=== PATIENT | female | born 1955 | race Caucasian/White ===

== ENCOUNTER 2020-06-22 08:57 | Outpatient (CLI) | payer MEDICARE, MEDICAID ==
[2020-06-22] MEDS ORDERED: Iopamidol 370 76% 100 ML VIAL ONE (09:06)
--- NOTE | 2020-06-22 11:44 | CT ---
CTA ABDOMEN AND PELVIS AND LOWER EXTREMITIES FOLLOWING ANGIO RUNOFF PROTOCOL WITH MULTIPLANAR RECONST RUCTION AND 3D POSTPROCESSING: Date; 06/22/2020 INDICATION: Peripheral vascular disease. Claudication. FINDINGS: The abdominal aorta shows moderate atherosclerotic change. Peripheral calcification with mild periphe ral thrombus within the aorta. Mild ectasia of the lower abdominal aorta with diameter in the sagitta l plane measured at 1.8 cm. The calcified plaque does produce luminal narrowing in the lower abdomina l aorta with calcified plaque projecting into the lumen. Moderate stenosis at the origin of the celiac artery which does appear to be hemodynamically signific ant. No significant stenosis at the origin of the superior mesenteric artery. Calcified plaque at the origin of the right renal artery results in what appears to be hemodynamicall y significant stenosis in the 50% diameter range according to NASCET criteria. No significant left renal artery stenosis. The aortic bifurcation shows diffuse atherosclerotic change involving both common iliacs. There is oc clusion of the left common iliac at its origin. LEFT LOWER EXTREMITY: The left common iliac occlusion extends into the left external iliac which is occluded. There is reconstitution of the left common femoral. Some minimal flow is seen in the left internal il iac. The left profunda femoral is patent. There is mild stenosis at the origin of the left superficial femoral. Moderate stenosis at the proximal left superficial femoral artery appears significant, probably in th e 70% diameter range by NASCET criteria. Atherosclerotic changes throughout the left superficial femoral artery with other areas of stenosis t hroughout the thigh. Evidence of significant stenosis at Bernard's canal distally. Left popliteal shows moderate atherosclerotic change with mild to moderate stenosis. Popliteal trifurcates below the knee. Three vessels are identified to the left ankle. The peroneal ap pears to occlude right at the ankle. The anterior tibial and posterior tibial arteries are patent at the foot. RIGHT LOWER EXTREMITY: Right common iliac is patent with mild to moderate stenosis. The right internal and external iliacs are patent with moderate atherosclerotic change. Right common femoral is patent. Profunda femoral is patent. Mild to moderate disease throughout the right superficial femoral artery with areas of mild stenosis. The right popliteal shows moderate stenosis at the joint space. The right popliteal trifurcates below the knee joint. The peroneal appears to occlude above the ankle . Anterior tibial and posterior tibial arteries are patent at the ankle. SOFT TISSUES: Chronic appearing changes in the lung bases. Liver, spleen, and pancreas are unremarkable. Bilateral renal cystic lesions. No hydronephrosis. Both kidneys show symmetric enhancement. Bowel loops unremar kable. Diverticulosis of the sigmoid colon. Osseous structures unremarkable with degenerative spine changes. Vertebral bodies maintain height. IMPRESSION: 1. There is calcified plaque projecting into the lumen of the lower abdominal aorta producing lumina l stenosis. This should be evaluated with catheter angiogram to assess significance. 2. Significant stenosis at the origin of the celiac artery and probably significant stenosis at the origin of the right renal artery. 3. 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 Recon stitution of left common femoral artery as noted above. 4. Areas of stenosis throughout the left superficial femoral artery and left popliteal as described above. 5. Moderate disease in the right common femoral and right superficial femoral artery with areas of m ild to moderate stenosis. POS: AH
== END 2020-06-22 08:58 | disposition home or self-care (01) ==
LOC: CT 08:57
PROVIDERS: ATTEND Internal Medicine Cardiovascular Disease
DX: I73.9 Peripheral vascular disease, unspecified (principal); I70.0 Atherosclerosis of aorta; I77.4 Celiac artery compression syndrome; I70.203 Unspecified atherosclerosis of native arteries of extremities, bilateral legs; I74.5 Embolism and thrombosis of iliac artery
CPT/HCPCS: 75635; 82565; Q9967

== ENCOUNTER 2020-10-29 06:55 | Emergency (ER) | payer MEDICARE, MEDICAID ==
[2020-10-29 08:18] LABS: Hemoglobin 10.7 g/dL (12.0-16.0); Mean Corpuscular HGB CONC 31.8 g/dL (32.0-36.0); Mean Corpuscular Hemoglobin 23.3 pg (27.0-31.0); Mean Corpuscular Volume 73.2 fL (78.0-98.0); Mean Platelet Volume 10.6 fL (7.4-10.4); Platelet Count 235 thou/uL (130-400); RBC Distribution Width 18.5 % (11.5-14.5); Red Blood Cell (RBC) Count 4.58 mill/uL (4.20-5.40); White Blood Cell (WBC) Count 15.1 thou/uL (4.8-10.8)
[2020-10-29 08:19] LABS: Bacteria/HPF None Seen HPF (None Seen); Bilirubin Negative (Negative); Blood, Urine 1+ (Negative); Clarity Clear (Clear); Glucose, Urine (Dipstick) Normal (Negative); Ketone, Urine Negative (Negative); Leukocyte Negative Leu/uL (Negative); Nitrite Negative (Negative); Protein, Urine (Dipstick) Negative (Neg-Trace); Specific Gravity, Urine 1.004 (1.002-1.036); Squamous Epithelial 0-3 HPF (0-3); Urobilinogen Normal mg/dL (Less than 2); WBC/HPF 0-3 HPF (0-3)
[2020-10-29 08:26] LABS: #Basophils 0.1 thou/uL (0.0-0.2); #Eosinphils 0.1 thou/uL (0.0-0.7); #Lymphocytes 1.6 thou/uL (1.20-3.40); #Neutrophils 12.3 thou/uL (1.40-6.50); %Basophils 0.4 % (0.0-1.0); %Eosinophils 0.5 % (0.0-10.0); %Lymphocytes 10.8 % (21.0-51.0); %Monocytes 6.6 % (0.0-10.0); %Neutrophils 81.7 % (42.0-75.0); Anisocytosis SLIGHT = 6-15 cells (100X) (0-5/hpf); Hypochromia SLIGHT = 6-15 cells (100X) (0-5/hpf); MDiff Complete? YES; Microcytosis MODERATE=15-30 cells (100X) (0-5/hpf); Platelet Morphology Comment Appears Adequate; Polychromasia SLIGHT = 2-3 cells (100X) (0-2/hpf)
--- NOTE | 2020-10-29 08:28 | CT ---
CT Stone Protocol History: Abdominal pain Comparison: CT angiogram June 2020 Findings: Small micronodules in both lower lobes have not grown from the June 2020 exam. Nodules m easure less than 5 mm. Diffuse hepatic steatosis. Moderate right hydroureteronephrosis without obstructing calculus apprecia eileen. Given this hydroureteronephrosis is new from the June 2020 examination in the presence of right-sided renal calculi, this is likely sequelae of a recently passed stone. Mild fullness left danilo al collecting system. Renal hypodensities are similar. Aortic contour is similar with extensive plaque. Moderate diverticul ar disease of the descending and sigmoid colon without active current inflammation. No dilated loops of large or small bowel. Punctate 2 to 3 mm calculi in the left inferior renal collecting system. 2-3 mm calculi throughout th e right inferior and interpolar renal collecting system. Impression: 1. Moderate right hydroureteronephrosis throughout the length of the right ureter without an obstruct ing calculus within the ureter nor within the urinary bladder. Given this hydroureteronephrosis is new from the June 2020 examination, and the multiple right-sided renal calculi, a recently passed stone is felt most likely. 2. Mild fullness left renal pelvis could be sequelae of urinary hesitancy and physiologic from incomp lete emptying of the urinary bladder. 3. Hepatomegaly and diffuse hepatic steatosis. 4. Cholelithiasis without cholecystitis.
[2020-10-29 08:35] LABS: Anion Gap 18 mmol/L (10-20); BUN (Urea Nitrogen) 13 mg/dL (9.8-20.1); Calc. Creatinine Clearance 0 mL/min (70-130); Carbon Dioxide 19 mmol/L (23-31); Chloride 105 mmol/L (98-107); Potassium 3.6 mmol/L (3.5-5.1); Sodium 138 mmol/L (136-145)
[2020-10-29 08:36] LABS: ALT (SGPT) 22 U/L (8-55); AST (SGOT) 18 U/L (5-34); Albumin 4.2 g/dL (3.4-4.8); Alkaline Phosphatase 36 U/L (40-110); Bilirubin, Total 0.4 mg/dL (0.2-1.2); Globulin 2.8 g/dL (2.4-3.5); Glucose 245 mg/dL (80-115); Lipase 44 U/L (8-78)
[2020-10-29 08:54] LABS: CKMB 2.8 ng/mL (0-6.6)
== END 2020-10-29 09:06 | disposition home or self-care (01) ==
LOC: ERS 06:55
DX: N13.2 Hydronephrosis with renal and ureteral calculous obstruction (principal); I10 Essential (primary) hypertension; E78.5 Hyperlipidemia, unspecified; E11.9 Type 2 diabetes mellitus without complications; M06.9 Rheumatoid arthritis, unspecified
CPT/HCPCS: 36415; 74176; 80053; 81003; 81015; 82553; 83690; 84484; 85025; 93005

== ENCOUNTER 2020-11-24 17:15 | Inpatient (IN) | payer MEDICARE, MEDICAID ==
[2020-11-24 21:13] LABS: Mean Corpuscular HGB CONC 29.3 g/dL (32.0-36.0); Mean Corpuscular Hemoglobin 22.5 pg (27.0-33.0); Mean Corpuscular Volume 76.6 fl (81.6-98.3); Mean Platelet Volume 11.6 fl (7.4-10.4); Platelet Count 285 10x3/uL (150-450); RBC Distribution Width 18.3 % (11.5-14.5); Red Blood Cell (RBC) Count 4.45 10x6/uL (3.90-5.03); White Blood Cell (WBC) Count 9.7 10x3/uL (3.5-10.5)
[2020-11-24 21:22] LABS: Anion Gap 17 mmol/L (10-20); BUN (Urea Nitrogen) 13 mg/dL (9.8-20.1); Calc. Creatinine Clearance 0 mL/min (70-130); Calcium 9.4 mg/dL (7.8-10.44); Carbon Dioxide 22 mmol/L (23-31); Chloride 102 mmol/L (98-107); Glucose 190 mg/dL (80-115); Potassium 3.9 mmol/L (3.5-5.1); Sodium 137 mmol/L (136-145)
[2020-11-28] MEDS ORDERED: EPINEPHrine 1 MG/ML AMP ONE ×2 (06:30→07:05)
[2020-11-28] MEDS ORDERED: Dexamethasone 4 mg/ml Vial ONE (06:30)
[2020-11-28] MEDS ORDERED: Heparin 5,000 UNITS/ML VIAL ONE (06:30)
[2020-11-28] MEDS ORDERED: Bupivacaine PF 0.5% 30 ML VIAL ONE ×2 (06:30→07:05)
[2020-11-28] MEDS ORDERED: Protamine Sulfate 50 MG/5 ML VIAL ONE (06:30)
[2020-11-28] MEDS ORDERED: Fentanyl 250 MCG/5 ML VIAL ONE (06:53)
[2020-11-28] MEDS ORDERED: Midazolam HCl 2 mg/2 ml Vial ONE (07:07)
[2020-11-28] MEDS ORDERED: Ondansetron ODT 4 MG TAB ONE (07:07)
[2020-11-28] MEDS ORDERED: Rocuronium Bromide 10 MG/ML (10ML VIAL) ONE (07:45)
[2020-11-28] MEDS ORDERED: Dexamethasone 20 MG/5 ML VIAL ONE (07:45)
[2020-11-28] MEDS ORDERED: PHENYLEPHRINE-NS 100 MCG/ML 10 ML SYRINGE ONE (07:45)
[2020-11-28] MEDS ORDERED: Ondansetron PF 4 MG/2 ML Vial ONE (07:45)
[2020-11-28] MEDS ORDERED: Lidocaine 1% PF 5 ML VIAL ONE (07:45)
[2020-11-28] MEDS ORDERED: Glycopyrrolate 0.2 MG/ML 5 ML SYRINGE ONE (07:45)
[2020-11-28] MEDS ORDERED: PACU-Morphine 4MG/ML VIAL SLOW IVP PRN (09:45)
[2020-11-28] MEDS ORDERED: Ondansetron HCl/PF 4 MG/2 ML Vial IVP PRN (09:45)
[2020-11-28] MEDS ORDERED: Promethazine HCl 25 MG/ML VIAL IM PRN (09:45)
[2020-11-28] MEDS ORDERED: Promethazine HCl 25 MG/ML VIAL SLOW IVP PRN (09:45)
[2020-11-28] MEDS ORDERED: Fentanyl 100 MCG/2 ML VIAL ONE (12:41)
[2020-11-28 15:34] VITALS: BMI 31.8
[2020-11-28] MEDS ORDERED: traMADol HCl 50 MG TAB PO PRN ×2 (17:22)
[2020-11-28] MEDS ORDERED: Ondansetron PF 4 MG/2 ML Vial IVP PRN (17:22)
[2020-11-28] MEDS: Insulin Regular 300 UNITS/3 ML VIAL SC PRN (17:38)
[2020-11-28] MEDS: CEFAZOLIN 2 GM in Premix Bag 1 BAG IVPB SCH (18:14)
[2020-11-28] MEDS: Furosemide 40 MG TAB PO SCH (20:26)
[2020-11-28] MEDS: Gabapentin 100 MG CAP PO SCH (20:26)
[2020-11-28] MEDS: metFORMIN 500 MG TAB PO SCH (20:26)
[2020-11-28] MEDS: Rosuvastatin 20 MG TAB PO SCH (20:26)
[2020-11-28] MEDS: Hydroxychloroquine Sulfate 200 MG TAB PO SCH (20:26)
[2020-11-29] MEDS: CEFAZOLIN 2 GM in Premix Bag 1 BAG IVPB SCH ×3 (02:13→22:30)
[2020-11-29] MEDS: Insulin Regular 300 UNITS/3 ML VIAL SC PRN (06:50)
[2020-11-29 07:13] LABS: Anion Gap 16 mmol/L (10-20); BUN (Urea Nitrogen) 15 mg/dL (9.8-20.1); Calc. Creatinine Clearance 62 mL/min (70-130); Calcium 8.3 mg/dL (7.8-10.44); Carbon Dioxide 23 mmol/L (23-31); Chloride 101 mmol/L (98-107); Glucose 235 mg/dL (80-115); Potassium 3.3 mmol/L (3.5-5.1); Sodium 137 mmol/L (136-145)
[2020-11-29] MEDS: Nitroglycerin 0.4 MG TAB (25 Tab Bottle) SL PRN ×2 (08:37→08:42)
[2020-11-29] MEDS ORDERED: Iopamidol-370 76% 500 ML 1 ML ONE (08:44)
[2020-11-29] MEDS: Aspirin Chewable 81 MG TAB PO SCH (08:45)
[2020-11-29] MEDS: Furosemide 40 MG TAB PO SCH ×2 (09:14→21:51)
[2020-11-29] MEDS: Digoxin 0.125 MG TAB PO SCH (09:14)
[2020-11-29] MEDS: Lisinopril 10 MG TAB PO SCH (09:15)
[2020-11-29] MEDS: Fenofibrate Nanocrystallized 145 MG TAB PO SCH (09:15)
[2020-11-29] MEDS: Hydroxychloroquine Sulfate 200 MG TAB PO SCH ×2 (09:15→21:50)
[2020-11-29] MEDS: predniSONE 5 MG TAB PO SCH (09:15)
[2020-11-29] MEDS: Gabapentin 100 MG CAP PO SCH ×2 (09:15→21:50)
[2020-11-29] MEDS: metFORMIN 500 MG TAB PO SCH ×2 (09:16→21:50)
[2020-11-29] MEDS: Leflunomide 10 mg Tablet PO SCH (10:03)
[2020-11-29] MEDS ORDERED: Protamine Sulfate 50 MG/5 ML VIAL ONE ×3 (13:06→19:02)
[2020-11-29] MEDS ORDERED: Heparin 5,000 UNITS/ML VIAL ONE ×2 (13:06→19:02)
[2020-11-29] MEDS ORDERED: Lidocaine 1% PF 5 ML VIAL ONE (13:30)
[2020-11-29] MEDS ORDERED: PHENYLEPHRINE-NS 100 MCG/ML 10 ML SYRINGE ONE ×2 (13:30→23:00)
[2020-11-29] MEDS ORDERED: Dexamethasone 20 MG/5 ML VIAL ONE (13:30)
[2020-11-29] MEDS ORDERED: PROPOFOL 200 MG/20 ML VIAL ONE ×2 (13:30→23:00)
[2020-11-29] MEDS ORDERED: Rocuronium Bromide 10 MG/ML (10ML VIAL) ONE ×2 (13:30→23:00)
[2020-11-29] MEDS ORDERED: Metoclopramide HCl 10 MG/2 ML VIAL ONE (13:30)
[2020-11-29] MEDS ORDERED: Ondansetron PF 4 MG/2 ML Vial ONE ×2 (13:30→23:00)
[2020-11-29] MEDS ORDERED: Famotidine/PF 20 mg/2ml Vial ONE (13:35)
[2020-11-29] MEDS ORDERED: Fentanyl 100 MCG/2 ML VIAL ONE ×3 (13:35→22:50)
[2020-11-29] MEDS ORDERED: SUGAMMADEX SODIUM 200 MG/2 ML VIAL ONE (13:35)
[2020-11-29] MEDS ORDERED: Phenylephrine 10 MG/ML VIAL ONE ×2 (13:36→18:57)
[2020-11-29] MEDS ORDERED: Bupivacaine PF 0.5% 30 ML VIAL ONE (14:21)
[2020-11-29] MEDS ORDERED: EPINEPHrine 1 MG/ML AMP ONE (14:21)
[2020-11-29] MEDS ORDERED: Dexamethasone 4 mg/ml Vial ONE (14:21)
[2020-11-29] MEDS ORDERED: Albumin 5% 500 ML ONE (14:50)
[2020-11-29] MEDS ORDERED: Ondansetron HCl/PF 4 MG/2 ML Vial IVP PRN (15:54)
[2020-11-29] MEDS ORDERED: Promethazine HCl 25 MG/ML VIAL SLOW IVP PRN (15:54)
[2020-11-29] MEDS ORDERED: Promethazine HCl 25 MG/ML VIAL IM PRN (15:54)
[2020-11-29] MEDS ORDERED: Heparin 5,000 UNITS/ML VIAL SC SCH (21:45)
[2020-11-29] MEDS ORDERED: Insulin Regular 300 UNITS/3 ML VIAL SC PRN (21:45)
[2020-11-29] MEDS: Rosuvastatin 20 MG TAB PO SCH (21:51)
[2020-11-29] MEDS ORDERED: Heparin 5,000 UNITS/ML VIAL SLOW IVP SCH (22:00)
[2020-11-29] MEDS ORDERED: Ioversol 68 % 50 ML VIAL ONE (22:00)
[2020-11-29] MEDS ORDERED: Midazolam HCl 2 mg/2 ml Vial ONE (22:50)
[2020-11-30] MEDS ORDERED: Heparin 25,000 units/D5W 500 ML ONE (00:11)
[2020-11-30] MEDS ORDERED: SUGAMMADEX SODIUM 200 MG/2 ML VIAL ONE (00:19)
[2020-11-30] MEDS ORDERED: Adenosine 6 MG/2 ML VIAL ONE (00:19)
[2020-11-30] MEDS ORDERED: Ondansetron HCl/PF 4 MG/2 ML Vial IVP PRN (00:39)
[2020-11-30] MEDS ORDERED: Promethazine HCl 25 MG/ML VIAL IM PRN (00:39)
[2020-11-30] MEDS ORDERED: Promethazine HCl 25 MG/ML VIAL SLOW IVP PRN (00:39)
[2020-11-30] MEDS ORDERED: Heparin 25,000 units/D5W 500 ML IVPB SCH (02:13)
[2020-11-30] MEDS ORDERED: Dextrose 50% Abboject 50 ML SYRINGE SLOW IVP PRN (02:13)
[2020-11-30] MEDS ORDERED: Dextrose 5% in Water 1,000 ML IV PRN (02:13)
[2020-11-30 03:48] LABS: #Basophils 0.1 thou/uL (0.0-0.2); #Lymphocytes 1.3 thou/uL (1.20-3.40); #Monocytes 1.2 thou/uL (0.11-0.59); #Neutrophils 7.6 thou/uL (1.40-6.50); %Basophils 0.5 % (0.0-1.0); %Eosinophils 0.1 % (0.0-10.0); %Lymphocytes 12.9 % (21.0-51.0); %Monocytes 11.8 % (0.0-10.0); %Neutrophils 74.7 % (42.0-75.0); Hemoglobin 7.4 g/dL (12.0-16.0); Mean Corpuscular HGB CONC 32.1 g/dL (32.0-36.0); Mean Corpuscular Hemoglobin 24.2 pg (27.0-31.0); Mean Corpuscular Volume 75.3 fL (78.0-98.0); Mean Platelet Volume 9.5 fL (7.4-10.4); Platelet Count 210 thou/uL (130-400); RBC Distribution Width 16.5 % (11.5-14.5); Red Blood Cell (RBC) Count 3.04 mill/uL (4.20-5.40); White Blood Cell (WBC) Count 10.2 thou/uL (4.8-10.8)
[2020-11-30] MEDS: CEFAZOLIN 2 GM in Premix Bag 1 BAG IVPB SCH ×2 (05:57→14:02)
[2020-11-30] MEDS: HumaLOG 300 UNITS/3 ML VIAL SC PRN ×4 (05:58→21:22)
[2020-11-30] MEDS: Gabapentin 100 MG CAP PO SCH ×2 (08:53→21:20)
[2020-11-30] MEDS: Aspirin Chewable 81 MG TAB PO SCH (08:53)
[2020-11-30] MEDS: Furosemide 40 MG TAB PO SCH ×2 (08:53→21:21)
[2020-11-30] MEDS: Digoxin 0.125 MG TAB PO SCH (08:54)
[2020-11-30] MEDS: Clopidogrel Bisulfate 75 MG TAB PO SCH (08:54)
[2020-11-30] MEDS: Fenofibrate Nanocrystallized 145 MG TAB PO SCH (08:55)
[2020-11-30] MEDS: metFORMIN 500 MG TAB PO SCH ×2 (08:55→21:20)
[2020-11-30] MEDS: Lisinopril 10 MG TAB PO SCH (09:01)
[2020-11-30] MEDS: Leflunomide 10 mg Tablet PO SCH (09:58)
[2020-11-30] MEDS: Heparin 10,000 UNITS/ 10 ML VIAL SLOW IVP SCH ×2 (11:41→19:23)
[2020-11-30] MEDS: Hydroxychloroquine Sulfate 200 MG TAB PO SCH ×2 (11:42→21:21)
[2020-11-30] MEDS: Acetaminophen 325 MG TAB PO PRN (18:03)
[2020-11-30] MEDS: Rosuvastatin 20 MG TAB PO SCH (21:21)
[2020-12-01 06:37] LABS: #Basophils 0.1 thou/uL (0.0-0.2); #Eosinphils 0.2 thou/uL (0.0-0.7); #Lymphocytes 2.4 thou/uL (1.20-3.40); #Monocytes 1.4 thou/uL (0.11-0.59); #Neutrophils 8.5 thou/uL (1.40-6.50); %Eosinophils 1.6 % (0.0-10.0); %Lymphocytes 19.3 % (21.0-51.0); %Neutrophils 67.2 % (42.0-75.0); Mean Corpuscular HGB CONC 32.5 g/dL (32.0-36.0); Mean Corpuscular Hemoglobin 25.7 pg (27.0-31.0); Mean Platelet Volume 9.4 fL (7.4-10.4); Platelet Count 184 thou/uL (130-400); RBC Distribution Width 17.2 % (11.5-14.5); Red Blood Cell (RBC) Count 3.49 mill/uL (4.20-5.40); White Blood Cell (WBC) Count 12.6 thou/uL (4.8-10.8)
[2020-12-01] MEDS: Clopidogrel Bisulfate 75 MG TAB PO SCH (08:30)
[2020-12-01] MEDS: Acetaminophen 325 MG TAB PO PRN (08:30)
[2020-12-01] MEDS: Gabapentin 100 MG CAP PO SCH ×2 (08:31→22:00)
[2020-12-01] MEDS: predniSONE 5 MG TAB PO SCH (08:31)
[2020-12-01] MEDS: metFORMIN 500 MG TAB PO SCH ×2 (08:31→22:01)
[2020-12-01] MEDS: Aspirin Chewable 81 MG TAB PO SCH (08:32)
[2020-12-01] MEDS: Digoxin 0.125 MG TAB PO SCH (09:45)
[2020-12-01] MEDS: Fenofibrate Nanocrystallized 145 MG TAB PO SCH (09:45)
[2020-12-01] MEDS: Furosemide 40 MG TAB PO SCH ×2 (11:05→22:00)
[2020-12-01] MEDS: Hydroxychloroquine Sulfate 200 MG TAB PO SCH ×2 (11:05→22:10)
[2020-12-01] MEDS: Leflunomide 10 mg Tablet PO SCH (11:06)
[2020-12-01] MEDS: Lisinopril 10 MG TAB PO SCH (11:11)
[2020-12-01] MEDS: HumaLOG 300 UNITS/3 ML VIAL SC PRN (11:43)
[2020-12-01] MEDS: Rosuvastatin 20 MG TAB PO SCH (22:02)
[2020-12-02] MEDS: Hydroxychloroquine Sulfate 200 MG TAB PO SCH (08:55)
[2020-12-02] MEDS: Digoxin 0.125 MG TAB PO SCH (08:55)
[2020-12-02] MEDS: Fenofibrate Nanocrystallized 145 MG TAB PO SCH (08:56)
[2020-12-02] MEDS: metFORMIN 500 MG TAB PO SCH (08:56)
[2020-12-02] MEDS: Furosemide 40 MG TAB PO SCH (08:57)
[2020-12-02] MEDS: Aspirin Chewable 81 MG TAB PO SCH (08:57)
[2020-12-02] MEDS: Clopidogrel Bisulfate 75 MG TAB PO SCH (08:58)
[2020-12-02] MEDS: Lisinopril 10 MG TAB PO SCH (08:58)
[2020-12-02] MEDS: Gabapentin 100 MG CAP PO SCH (08:58)
[2020-12-02] MEDS: Leflunomide 10 mg Tablet PO SCH (08:59)
[2020-12-02 12:51] VITALS: BP 119/48; TEMP 97.8
== END 2020-12-02 12:30 | disposition home or self-care (01) | DRG 271 ==
LOC: SURG A 11-28 05:36 → 2NO 11-28 14:56 → CCU 11-30 01:58 → 2NO 12-01 12:35
PROVIDERS: ADMIT Thoracic Surgery (Cardiothoracic Vascular Surgery); ATTEND Thoracic Surgery (Cardiothoracic Vascular Surgery)
PROC: 04CJ0ZZ Extirpation of Matter from Left External Iliac Artery, Open Approach (ICD-10-PCS; 2020-11-28)
PROC: 041K0JJ Bypass Right Femoral Artery to Left Femoral Artery with Synthetic Substitute, Open Approach (ICD-10-PCS; 2020-11-28)
PROC: 04UH0KZ Supplement Right External Iliac Artery with Nonautologous Tissue Substitute, Open Approach (ICD-10-PCS; 2020-11-28)
PROC: 04CK0ZZ Extirpation of Matter from Right Femoral Artery, Open Approach (ICD-10-PCS; principal; 2020-11-29)
PROC: 04UK0KZ Supplement Right Femoral Artery with Nonautologous Tissue Substitute, Open Approach (ICD-10-PCS; 2020-11-29)
PROC: 04CL0ZZ Extirpation of Matter from Left Femoral Artery, Open Approach (ICD-10-PCS; 2020-11-29)
PROC: 04CK0ZZ Extirpation of Matter from Right Femoral Artery, Open Approach (ICD-10-PCS; 2020-11-29)
PROC: 04UK0KZ Supplement Right Femoral Artery with Nonautologous Tissue Substitute, Open Approach (ICD-10-PCS; 2020-11-30)
PROC: B41F1ZZ Fluoroscopy of Right Lower Extremity Arteries using Low Osmolar Contrast (ICD-10-PCS; 2020-11-30)
DX: I74.5 Embolism and thrombosis of iliac artery (principal); T82.868A Thrombosis due to vascular prosthetic devices, implants and grafts, initial encounter; I74.3 Embolism and thrombosis of arteries of the lower extremities; D62 Acute posthemorrhagic anemia; Y83.2 Surgical operation with anastomosis, bypass or graft as the cause of abnormal reaction of the patient, or of later complication, without mention of misadventure at the time of the procedure
CPT/HCPCS: 36415; 36416; 36430; 75635; 76000; 80048; 85025; 85027; 85730; 86850; 86900; 86901; 93005; 93010; J0153; J0171; J0690; J1100; J1642; J1644; J1815; J2250; J2370; J2405; J2704; J2720; J2765; J3010; J7512; P9016; P9045; Q0162; Q9967; S0020; S0028

== ENCOUNTER 2021-02-07 13:07 | Outpatient (CLI) | payer MEDICARE, MEDICAID ==
[2020-11-25 15:52] LABS: SARS-CoV-2 PCR by NAA Not Detected (NotDetected)
[2021-02-08 10:28] LABS: SARS-CoV-2 NAA Rapid Test Not Detected (NotDetected)
== END 2021-02-07 13:08 | disposition home or self-care (01) ==
LOC: LABBT 13:07
PROVIDERS: ATTEND Internal Medicine Gastroenterology
DX: Z01.818 Encounter for other preprocedural examination (principal); D50.9 Iron deficiency anemia, unspecified; K52.9 Noninfective gastroenteritis and colitis, unspecified; Z20.822 Contact with and (suspected) exposure to COVID-19
CPT/HCPCS: 93005; U0002; U0003; U0005 ×2; 80048; 85027; 93010

== ENCOUNTER 2021-02-10 07:05 | Day surgery (SDC) | payer MEDICARE, MEDICAID ==
[2021-02-09 11:49] VITALS: BMI 31.6
[2021-02-10] MEDS ORDERED: PROPOFOL 200 MG/20 ML VIAL ONE (09:43)
[2021-02-10] MEDS ORDERED: Lidocaine 1% PF 5 ML VIAL ONE (09:43)
== END 2021-02-10 12:02 | disposition home or self-care (01) ==
LOC: SDC 07:05
PROVIDERS: ATTEND Internal Medicine Gastroenterology
PROC: 0DB98ZX Excision of Duodenum, Via Natural or Artificial Opening Endoscopic, Diagnostic (ICD-10-PCS; principal; 2021-02-10)
PROC: 0D5H8ZZ Destruction of Cecum, Via Natural or Artificial Opening Endoscopic (ICD-10-PCS; 2021-02-10)
PROC: 0DBK8ZX Excision of Ascending Colon, Via Natural or Artificial Opening Endoscopic, Diagnostic (ICD-10-PCS; 2021-02-10)
PROC: 0DBL8ZX Excision of Transverse Colon, Via Natural or Artificial Opening Endoscopic, Diagnostic (ICD-10-PCS; 2021-02-10)
PROC: 0DBN8ZX Excision of Sigmoid Colon, Via Natural or Artificial Opening Endoscopic, Diagnostic (ICD-10-PCS; 2021-02-10)
PROC: 0DBM8ZX Excision of Descending Colon, Via Natural or Artificial Opening Endoscopic, Diagnostic (ICD-10-PCS; 2021-02-10)
PROC: 0DBH8ZX Excision of Cecum, Via Natural or Artificial Opening Endoscopic, Diagnostic (ICD-10-PCS; 2021-02-10)
DX: D12.0 Benign neoplasm of cecum (principal); D12.2 Benign neoplasm of ascending colon; K57.30 Diverticulosis of large intestine without perforation or abscess without bleeding; K52.9 Noninfective gastroenteritis and colitis, unspecified; D50.9 Iron deficiency anemia, unspecified; K21.9 Gastro-esophageal reflux disease without esophagitis; M19.90 Unspecified osteoarthritis, unspecified site; M35.9 Systemic involvement of connective tissue, unspecified; I11.0 Hypertensive heart disease with heart failure; I50.9 Heart failure, unspecified; I25.10 Atherosclerotic heart disease of native coronary artery without angina pectoris; E11.9 Type 2 diabetes mellitus without complications; I25.2 Old myocardial infarction; M06.9 Rheumatoid arthritis, unspecified; Z79.01 Long term (current) use of anticoagulants; Z79.02 Long term (current) use of antithrombotics/antiplatelets; Z79.52 Long term (current) use of systemic steroids; Z79.82 Long term (current) use of aspirin; Z79.84 Long term (current) use of oral hypoglycemic drugs; Z79.899 Other long term (current) drug therapy; Z95.1 Presence of aortocoronary bypass graft; Z95.5 Presence of coronary angioplasty implant and graft
CPT/HCPCS: 36416; 88305; J2704

== ENCOUNTER 2022-01-28 21:58 | Inpatient (IN) | payer MEDICARE, MEDICAID ==
[2022-01-28 22:54] LABS: Bilirubin Negative (Negative); Blood, Urine Negative (Negative); Clarity Clear (Clear); Glucose, Urine (Dipstick) Normal (Negative); Ketone, Urine Negative (Negative); Leukocyte Negative Leu/uL (Negative); Nitrite Negative (Negative); Protein, Urine (Dipstick) Negative (Neg-Trace); Specific Gravity, Urine 1.008 (1.002-1.036); Urobilinogen Normal mg/dL (Less than 2)
[2022-01-28 23:15] LABS: #Basophils 0.1 thou/uL (0.0-0.2); #Lymphocytes 2.1 thou/uL (1.20-3.40); #Neutrophils 5.5 thou/uL (1.40-6.50); %Basophils 1.3 % (0.0-1.0); %Eosinophils 0.5 % (0.0-10.0); %Lymphocytes 23.7 % (21.0-51.0); %Monocytes 11.6 % (0.0-10.0); %Neutrophils 62.9 % (42.0-75.0); Hemoglobin 11.6 g/dL (12.0-16.0); Mean Corpuscular HGB CONC 31.2 g/dL (32.0-36.0); Mean Corpuscular Hemoglobin 26.4 pg (27.0-31.0); Mean Corpuscular Volume 84.4 fL (78.0-98.0); Mean Platelet Volume 8.5 fL (7.4-10.4); Platelet Count 270 thou/uL (130-400); RBC Distribution Width 15.6 % (11.5-14.5); Red Blood Cell (RBC) Count 4.39 mill/uL (4.20-5.40); White Blood Cell (WBC) Count 8.7 thou/uL (4.8-10.8)
[2022-01-28 23:35] LABS: ALT (SGPT) 14 U/L (8-55); AST (SGOT) 16 U/L (5-34); Alkaline Phosphatase 51 U/L (40-110); Anion Gap 15 mmol/L (10-20); BUN (Urea Nitrogen) 39 mg/dL (9.8-20.1); Bilirubin, Total 0.3 mg/dL (0.2-1.2); Calc. Creatinine Clearance 0 mL/min (70-130); Calcium 9.6 mg/dL (7.8-10.44); Carbon Dioxide 24 mmol/L (23-31); Chloride 103 mmol/L (98-107); Globulin 3.6 g/dL (2.4-3.5); Glucose 121 mg/dL (80-115); Potassium 4.3 mmol/L (3.5-5.1); Protein, Total 7.6 g/dL (5.8-8.1); Sodium 138 mmol/L (136-145)
[2022-01-28] MEDS ORDERED: Fentanyl 100 MCG/2 ML VIAL ONE (23:51)
[2022-01-29] MEDS ORDERED: Ondansetron PF 4 MG/2 ML Vial ONE (00:30)
[2022-01-29] MEDS ORDERED: Ondansetron PF 4 MG/2 ML Vial IVP PRN (01:45)
[2022-01-29] MEDS ORDERED: Ondansetron ODT 4 MG TAB SL PRN (01:45)
[2022-01-29] MEDS ORDERED: Acetaminophen 325 MG TAB PO PRN (01:45)
[2022-01-29 02:53] VITALS: BMI 29.7
[2022-01-29] MEDS ORDERED: HYDROcodone/Acetaminophen 7.5/325 mg Tablet PO PRN (03:23)
[2022-01-29] MEDS: Cyclobenzaprine 10 MG TAB PO PRN (04:03)
[2022-01-29] MEDS ORDERED: Dextrose 50% Abboject 50 ML SYRINGE SLOW IVP PRN (04:17)
[2022-01-29] MEDS ORDERED: Dextrose 5% in Water 1,000 ML IV PRN (04:17)
[2022-01-29] MEDS ORDERED: Acetaminophen 650 MG Suppository PR PRN (04:17)
[2022-01-29] MEDS ORDERED: HumaLOG 300 UNITS/3 ML VIAL SC PRN ×2 (04:17)
[2022-01-29] MEDS ORDERED: Furosemide 40 MG/4 ML VIAL SLOW IVP SCH (04:45)
[2022-01-29] MEDS: Fentanyl 100 MCG/2 ML VIAL SLOW IVP PRN ×2 (04:52→16:32)
[2022-01-29] MEDS: Enoxaparin Sodium 30 MG/0.3 ML SYRINGE SC SCH (08:11)
[2022-01-29 12:08] LABS: SARS-CoV-2 PCR by NAA Not Detected (NotDetected)
[2022-01-29] MEDS ORDERED: predniSONE 5 MG TAB PO SCH (12:15)
[2022-01-29] MEDS: Gabapentin 100 MG CAP PO SCH (21:14)
[2022-01-29] MEDS: Rosuvastatin 20 MG TAB PO SCH (21:17)
[2022-01-29] MEDS: Hydroxychloroquine Sulfate 200 MG TAB PO SCH (21:18)
[2022-01-30] MEDS: Fentanyl 100 MCG/2 ML VIAL SLOW IVP PRN ×2 (04:42→20:16)
[2022-01-30] MEDS: Ondansetron PF 4 MG/2 ML Vial IVP PRN ×2 (04:58→20:18)
[2022-01-30 07:24] LABS: #Basophils 0.1 thou/uL (0.0-0.2); #Eosinphils 0.1 thou/uL (0.0-0.7); #Lymphocytes 2.2 thou/uL (1.20-3.40); #Monocytes 1.1 thou/uL (0.11-0.59); #Neutrophils 6.6 thou/uL (1.40-6.50); %Basophils 0.8 % (0.0-1.0); %Eosinophils 0.5 % (0.0-10.0); %Lymphocytes 21.5 % (21.0-51.0); %Monocytes 10.9 % (0.0-10.0); %Neutrophils 66.3 % (42.0-75.0); Hemoglobin 11.6 g/dL (12.0-16.0); Mean Corpuscular Hemoglobin 26.6 pg (27.0-31.0); Mean Corpuscular Volume 83.2 fL (78.0-98.0); Mean Platelet Volume 8.4 fL (7.4-10.4); Platelet Count 237 thou/uL (130-400); RBC Distribution Width 15.6 % (11.5-14.5); Red Blood Cell (RBC) Count 4.37 mill/uL (4.20-5.40)
[2022-01-30 07:46] LABS: ALT (SGPT) 13 U/L (8-55); AST (SGOT) 20 U/L (5-34); Albumin 3.8 g/dL (3.4-4.8); Alkaline Phosphatase 54 U/L (40-110); Anion Gap 14 mmol/L (10-20); BUN (Urea Nitrogen) 30 mg/dL (9.8-20.1); Bilirubin, Total 0.5 mg/dL (0.2-1.2); Calc. Creatinine Clearance 44 mL/min (70-130); Calcium 9.7 mg/dL (7.8-10.44); Carbon Dioxide 27 mmol/L (23-31); Chloride 100 mmol/L (98-107); Globulin 3.6 g/dL (2.4-3.5); Glucose 116 mg/dL (80-115); Potassium 3.8 mmol/L (3.5-5.1); Protein, Total 7.4 g/dL (5.8-8.1); Sodium 137 mmol/L (136-145)
[2022-01-30] MEDS: Gabapentin 100 MG CAP PO SCH ×2 (08:21→20:04)
[2022-01-30] MEDS: Digoxin 0.125 MG TAB PO SCH (08:21)
[2022-01-30] MEDS: Enoxaparin Sodium 30 MG/0.3 ML SYRINGE SC SCH (08:21)
[2022-01-30] MEDS: Clopidogrel Bisulfate 75 MG TAB PO SCH (08:22)
[2022-01-30] MEDS: Aspirin Chewable 81 MG TAB PO SCH (08:22)
[2022-01-30] MEDS: Hydroxychloroquine Sulfate 200 MG TAB PO SCH ×2 (08:22→20:04)
[2022-01-30] MEDS: Leflunomide 10 mg Tablet PO SCH (08:22)
[2022-01-30] MEDS: Fenofibrate Nanocrystallized 145 MG TAB PO SCH (08:22)
[2022-01-30] MEDS: Lisinopril 10 MG TAB PO SCH (08:23)
[2022-01-30] MEDS: Furosemide 40 MG/4 ML VIAL SLOW IVP SCH (08:23)
[2022-01-30] MEDS: Cyclobenzaprine 10 MG TAB PO PRN (08:33)
[2022-01-30] MEDS ORDERED: Non-Formulary Item 1 EACH (Omeprazole [Omeprazole] 20 MG Capsule.Dr) PO SCH (09:00)
[2022-01-30] MEDS ORDERED: Digoxin 0.125 MG TAB PO SCH (09:00)
[2022-01-30] MEDS ORDERED: Non-Formulary Item 1 EACH (Fenofibrate [Fenofibrate] 160 MG Tablet) PO SCH (09:00)
[2022-01-30] MEDS ORDERED: Non-Formulary Item 1 EACH (Leflunomide [Arava] 20 MG Tab) PO SCH (09:00)
[2022-01-30] MEDS: Rosuvastatin 20 MG TAB PO SCH (20:04)
[2022-01-31 06:30] LABS: #Basophils 0.1 thou/uL (0.0-0.2); #Lymphocytes 2.7 thou/uL (1.20-3.40); #Monocytes 1.1 thou/uL (0.11-0.59); #Neutrophils 8.3 thou/uL (1.40-6.50); %Basophils 0.8 % (0.0-1.0); %Eosinophils 0.4 % (0.0-10.0); %Monocytes 9.4 % (0.0-10.0); %Neutrophils 67.5 % (42.0-75.0); Hemoglobin 11.5 g/dL (12.0-16.0); Mean Corpuscular HGB CONC 31.9 g/dL (32.0-36.0); Mean Corpuscular Volume 84.7 fL (78.0-98.0); Mean Platelet Volume 8.5 fL (7.4-10.4); Platelet Count 246 thou/uL (130-400); RBC Distribution Width 15.6 % (11.5-14.5); Red Blood Cell (RBC) Count 4.26 mill/uL (4.20-5.40); White Blood Cell (WBC) Count 12.2 thou/uL (4.8-10.8)
[2022-01-31 06:58] LABS: Anion Gap 20 mmol/L (10-20); BUN (Urea Nitrogen) 49 mg/dL (9.8-20.1); Calc. Creatinine Clearance 22 mL/min (70-130); Calcium 9.7 mg/dL (7.8-10.44); Carbon Dioxide 20 mmol/L (23-31); Chloride 96 mmol/L (98-107); Glucose 97 mg/dL (80-115); Sodium 132 mmol/L (136-145)
[2022-01-31] MEDS ORDERED: predniSONE 5 MG TAB PO SCH (08:00)
[2022-01-31] MEDS: Gabapentin 100 MG CAP PO SCH (08:48)
[2022-01-31] MEDS: Lisinopril 10 MG TAB PO SCH (08:48)
[2022-01-31] MEDS: Digoxin 0.125 MG TAB PO SCH (08:48)
[2022-01-31] MEDS: Aspirin Chewable 81 MG TAB PO SCH (08:48)
[2022-01-31] MEDS: Hydroxychloroquine Sulfate 200 MG TAB PO SCH ×2 (08:48→21:55)
[2022-01-31] MEDS: Leflunomide 10 mg Tablet PO SCH (08:49)
[2022-01-31] MEDS: Clopidogrel Bisulfate 75 MG TAB PO SCH (08:49)
[2022-01-31] MEDS: Furosemide 40 MG/4 ML VIAL SLOW IVP SCH (08:49)
[2022-01-31] MEDS: Fenofibrate Nanocrystallized 145 MG TAB PO SCH (08:49)
[2022-01-31] MEDS ORDERED: Lactated Ringer's 1,000 ML IV SCH (09:00)
[2022-01-31] MEDS ORDERED: Enoxaparin Sodium 40 MG/0.4 ML SYRINGE SC SCH (09:00)
[2022-01-31] MEDS: traMADol HCl 50 MG TAB PO PRN (09:31)
[2022-01-31 14:02] LABS: Creatinine, Urine 26.17 mg/dL (47-110); Protein, Urine Random Quant Less than 10 mg/dL (1-14)
[2022-01-31] MEDS: Acetaminophen 500 MG TAB PO SCH ×2 (14:10→21:55)
[2022-01-31] MEDS: Rosuvastatin 20 MG TAB PO SCH (21:56)
[2022-02-01] MEDS: traMADol HCl 50 MG TAB PO PRN ×2 (01:52→11:25)
[2022-02-01] MEDS: Gabapentin 100 MG CAP PO SCH ×2 (01:54→08:38)
[2022-02-01 06:49] LABS: #Basophils 0.1 thou/uL (0.0-0.2); #Lymphocytes 2.6 thou/uL (1.20-3.40); #Monocytes 1.1 thou/uL (0.11-0.59); #Neutrophils 5.7 thou/uL (1.40-6.50); %Basophils 1.3 % (0.0-1.0); %Eosinophils 0.4 % (0.0-10.0); %Lymphocytes 26.9 % (21.0-51.0); %Monocytes 11.8 % (0.0-10.0); %Neutrophils 59.6 % (42.0-75.0); Hemoglobin 11.6 g/dL (12.0-16.0); Mean Corpuscular HGB CONC 31.2 g/dL (32.0-36.0); Mean Corpuscular Hemoglobin 26.4 pg (27.0-31.0); Mean Corpuscular Volume 84.7 fL (78.0-98.0); Mean Platelet Volume 8.7 fL (7.4-10.4); Platelet Count 282 thou/uL (130-400); RBC Distribution Width 15.9 % (11.5-14.5); Red Blood Cell (RBC) Count 4.38 mill/uL (4.20-5.40); White Blood Cell (WBC) Count 9.5 thou/uL (4.8-10.8)
[2022-02-01 07:18] LABS: Anion Gap 14 mmol/L (10-20); BUN (Urea Nitrogen) 39 mg/dL (9.8-20.1); Calc. Creatinine Clearance 38 mL/min (70-130); Calcium 9.6 mg/dL (7.8-10.44); Carbon Dioxide 26 mmol/L (23-31); Chloride 100 mmol/L (98-107); Glucose 68 mg/dL (80-115); Potassium 4.2 mmol/L (3.5-5.1); Sodium 136 mmol/L (136-145)
[2022-02-01] MEDS: Aspirin Chewable 81 MG TAB PO SCH (08:37)
[2022-02-01] MEDS: Digoxin 0.125 MG TAB PO SCH (08:37)
[2022-02-01] MEDS: Acetaminophen 500 MG TAB PO SCH ×2 (08:38→14:58)
[2022-02-01] MEDS: Leflunomide 10 mg Tablet PO SCH (08:38)
[2022-02-01] MEDS: Fenofibrate Nanocrystallized 145 MG TAB PO SCH (08:38)
[2022-02-01] MEDS: Clopidogrel Bisulfate 75 MG TAB PO SCH (08:38)
[2022-02-01] MEDS: Hydroxychloroquine Sulfate 200 MG TAB PO SCH (08:48)
[2022-02-01] MEDS ORDERED: Enoxaparin Sodium 30 MG/0.3 ML SYRINGE SC SCH (09:00)
[2022-02-01 16:24] VITALS: BP 120/77; TEMP 97.7
== END 2022-02-01 17:32 | disposition home or self-care (01) | DRG 563 ==
LOC: ERS 21:58 → T4-B 01-29 01:37 → OBSVTOIN 01-31 13:27
PROVIDERS: ADMIT Hospitalist; ATTEND Hospitalist
DX: S39.012A Strain of muscle, fascia and tendon of lower back, initial encounter (principal); N17.9 Acute kidney failure, unspecified; I13.0 Hypertensive heart and chronic kidney disease with heart failure and stage 1 through stage 4 chronic kidney disease, or unspecified chronic kidney disease; E87.1 Hypo-osmolality and hyponatremia; E87.2 Acidosis; Z20.822 Contact with and (suspected) exposure to COVID-19; I50.9 Heart failure, unspecified; M06.9 Rheumatoid arthritis, unspecified; E78.5 Hyperlipidemia, unspecified; I25.10 Atherosclerotic heart disease of native coronary artery without angina pectoris; N28.1 Cyst of kidney, acquired; K80.20 Calculus of gallbladder without cholecystitis without obstruction; N18.30 Chronic kidney disease, stage 3 unspecified; E11.22 Type 2 diabetes mellitus with diabetic chronic kidney disease; X58.XXXA Exposure to other specified factors, initial encounter; E86.0 Dehydration; T46.4X5A Adverse effect of angiotensin-converting-enzyme inhibitors, initial encounter; Z95.1 Presence of aortocoronary bypass graft; Z88.5 Allergy status to narcotic agent; Z79.899 Other long term (current) drug therapy; Z79.02 Long term (current) use of antithrombotics/antiplatelets; Z79.84 Long term (current) use of oral hypoglycemic drugs; Z79.52 Long term (current) use of systemic steroids; Z90.49 Acquired absence of other specified parts of digestive tract; Z90.710 Acquired absence of both cervix and uterus
CPT/HCPCS: 36415; 36416; 72148; 74176; 76705; 80048; 80053; 81003; 82570; 83605; 83735; 83880; 84156; 85025; 85652; 86140; 87040; 93306; 96374; 96375; J1650; J1940; J2405; J3010; J7120; J7512; U0003; U0005

== ENCOUNTER 2022-04-02 12:29 | Outpatient (CLI) | payer OTHER, MEDICAID | END 2022-04-02 12:30 | disposition home or self-care (01) | LOC: BICULT 12:29 | PROVIDERS: ATTEND Internal Medicine Nephrology | DX: I12.9 Hypertensive chronic kidney disease with stage 1 through stage 4 chronic kidney disease, or unspecified chronic kidney disease (principal); N18.30 Chronic kidney disease, stage 3 unspecified; R93.89 Abnormal findings on diagnostic imaging of other specified body structures | CPT/HCPCS: 76770; 93975 ==

== ENCOUNTER 2022-07-20 15:59 | Inpatient (IN) | payer OTHER, MEDICAID ==
[2022-07-20 16:39] LABS: Actual Bicarbonate (HCO3v) 23 mEq/L (22-28); Analyzer IN Cardio ER; Base Excess -0.9 mEq/L (-2.0 to +3.0); Calcium, Ionized (venous) 0.83 mmol/L (1.16-1.32); Chloride (VBG) 105 mmol/L (98-106); Potassium (VBG) 4.07 mmol/L (3.70-5.30); pH (venous) 7.44 (7.32-7.43)
[2022-07-20 17:02] LABS: #Lymphocytes 1.1 thou/uL (1.20-3.40); #Monocytes 0.8 thou/uL (0.11-0.59); #Neutrophils 8.2 thou/uL (1.40-6.50); %Basophils 0.5 % (0.0-1.0); %Eosinophils 0.1 % (0.0-10.0); %Lymphocytes 10.7 % (21.0-51.0); %Monocytes 7.9 % (0.0-10.0); %Neutrophils 80.9 % (42.0-75.0); Hemoglobin 9.9 g/dL (12.0-16.0); Mean Corpuscular Hemoglobin 23.9 pg (27.0-31.0); Mean Corpuscular Volume 79.6 fl (78.0-98.0); Mean Platelet Volume 10.4 fL (7.4-10.4); Platelet Count 205 10x3/uL (130-400); Red Blood Cell (RBC) Count 4.12 mill/uL (4.20-5.40); White Blood Cell (WBC) Count 10.2 10x3/uL (4.8-10.8)
[2022-07-20] MEDS ORDERED: Rocuronium Bromide 10 MG/ML (10ML VIAL) ONE (17:02)
[2022-07-20] MEDS ORDERED: Propofol 1,000 MG/100 ML VIAL IV ONE (17:02)
[2022-07-20] MEDS ORDERED: NOREPINEPHRINE 8 MG/250 ML-D5W 250 ML ONE (17:08)
[2022-07-20 17:15] LABS: ALT (SGPT) Less than 7 U/L (8-55); AST (SGOT) 19 U/L (5-34); Albumin 2.9 g/dL (3.4-4.8); Alkaline Phosphatase 110 U/L (40-110); Anion Gap 13 mmol/L (10-20); BUN (Urea Nitrogen) 13 mg/dL (9.8-20.1); Bilirubin, Total 0.9 mg/dL (0.2-1.2); Calc. Creatinine Clearance 0 mL/min (70-130); Calcium 8.5 mg/dL (7.8-10.44); Carbon Dioxide 21 mmol/L (23-31); Chloride 102 mmol/L (98-107); Estimated GFR 89; Globulin 3.7 g/dL (2.4-3.5); Glucose 72 mg/dL (80-115); Magnesium 1.7 mg/dL (1.6-2.6); Protein, Total 6.6 g/dL (5.8-8.1); Sodium 132 mmol/L (136-145)
[2022-07-20] MEDS ORDERED: Furosemide 100 MG in Sodium Chloride 0.9% 90 ML IVPB SCH (17:30)
[2022-07-20] MEDS ORDERED: Ventilator Sedation Protocol 1 EACH FS SCH (17:30)
[2022-07-20] MEDS ORDERED: Electrolyte Replacement Protocol IVPB PRN (17:30)
[2022-07-20] MEDS ORDERED: Acetaminophen 325 MG Suppository PR PRN (17:30)
[2022-07-20 17:53] LABS: CKMB 3.1 ng/mL (0-6.6)
[2022-07-20] MEDS ORDERED: Piperacillin/Tazobactam 3.375 GM in Sodium Chloride 0.9% 100 ML IVPB SCH (18:00)
[2022-07-20 18:15] LABS: Actual Bicarbonate (HCO3a) 18.1 mEq/L (22-28); Analyzer IN Cardio ER; Base Excess (BEa) -7.8 mEq/L (-2.0 to +3.0); CO2 Tension 38.2 mmHg (35.0-45.0); Calcium, Ionized (arterial) 0.97 mmol/L (1.12-1.30); Carboxyhemoglobin (COHb) 0.5 gm% (0.0-3.0); Hemoglobin (Hb) 10.1 g/dL (12.0-16.0); O2 Tension (PaO2), arterial 78.4 mmHg (> 80.0); Potassium - ABG Lab 4.29 mmol/L (3.70-5.30); pH, Arterial 7.29 (7.35-7.45)
[2022-07-20 18:18] LABS: Puncture Site RRA
[2022-07-20 18:36] LABS: Hemoglobin A1c 5.2 % (4.0-6.0)
[2022-07-20 18:45] LABS: Troponin I 0.166 ng/mL (< 0.028)
[2022-07-20] MEDS ORDERED: Propofol BOLUS 1,000 MG/100 ML VIAL IV PRN (18:45)
[2022-07-20] MEDS ORDERED: Fentanyl BOLUS 250 ML IVPB PRN (18:45)
[2022-07-20] MEDS ORDERED: DISCONTINUE PREVIOUS NARCOTIC PAIN MEDICATIONS AND BENZODIAZEPINES FS SCH (18:45)
[2022-07-20] MEDS ORDERED: Morphine 4 MG/ML VIAL SLOW IVP PRN (18:45)
[2022-07-20 18:57] LABS: SARS-CoV-2 NAA Rapid Test DETECTED (NotDetected)
[2022-07-20] MEDS ORDERED: Enoxaparin Sodium 40 MG/0.4 ML SYRINGE SC SCH (21:00)
[2022-07-20 21:02] LABS: Bilirubin Negative (Negative); Blood, Urine Negative (Negative); Clarity Turbid (Clear); Glucose, Urine (Dipstick) Normal (Negative); Ketone, Urine Negative (Negative); Leukocyte Negative Leu/uL (Negative); Mucous/LPF Rare LPF (<2+); Nitrite Negative (Negative); Protein, Urine (Dipstick) 200 mg/dL (Neg-Trace); Specific Gravity, Urine 1.037 (1.002-1.036); Squamous Epithelial 0-3 HPF (0-3); pH, Urine 5.5 (5.0-9.0)
[2022-07-20 21:05] LABS: Bacteria/HPF 3+ HPF (None Seen); Transitional Epithelial 0-3 HPF (None Seen)
[2022-07-20] MEDS: Piperacillin/Tazobactam 3.375 GM in Sodium Chloride 0.9% 100 ML IVPB SCH (21:27)
[2022-07-20] MEDS ORDERED: Fentanyl CADD 100 ML ONE (21:55)
[2022-07-20] MEDS: NOREPINEPHRINE 8 MG/250 ML-D5W 250 ML IVPB SCH (22:03)
[2022-07-20] MEDS: Fentanyl CADD 100 ML IV SCH (22:06)
[2022-07-21 00:21] LABS: Troponin I 0.179 ng/mL (< 0.028)
[2022-07-21] MEDS ORDERED: Midazolam HCl 2 mg/2 ml Vial ONE (00:40)
[2022-07-21] MEDS ORDERED: NOREPINEPHRINE 8 MG/250 ML-D5W 0 ML ONE (00:40)
[2022-07-21] MEDS ORDERED: Magnesium 2 GM/50 ML(in water) 2 GM in Premix Bag 1 BAG IVPB SCH (00:45)
[2022-07-21] MEDS: Midazolam HCl 2 mg/2 ml Vial SLOW IVP PRN ×4 (01:50→16:13)
[2022-07-21 04:34] LABS: #Basophils 0.1 thou/uL (0.0-0.2); #Lymphocytes 2.9 thou/uL (1.20-3.40); #Monocytes 1.5 thou/uL (0.11-0.59); #Neutrophils 11.8 thou/uL (1.40-6.50); %Basophils 0.5 % (0.0-1.0); %Eosinophils 0.2 % (0.0-10.0); %Lymphocytes 17.7 % (21.0-51.0); %Monocytes 9.1 % (0.0-10.0); %Neutrophils 72.4 % (42.0-75.0); Hemoglobin 9.4 g/dL (12.0-16.0); Mean Corpuscular HGB CONC 29.8 g/dL (32.0-36.0); Mean Corpuscular Hemoglobin 24.1 pg (27.0-31.0); Mean Corpuscular Volume 80.8 fl (78.0-98.0); Mean Platelet Volume 10.3 fL (7.4-10.4); Platelet Count 249 10x3/uL (130-400); RBC Distribution Width 17.6 % (11.5-14.5); White Blood Cell (WBC) Count 16.3 10x3/uL (4.8-10.8)
[2022-07-21] MEDS: Piperacillin/Tazobactam 3.375 GM in Sodium Chloride 0.9% 100 ML IVPB SCH ×3 (04:37→21:22)
[2022-07-21 04:48] LABS: Anion Gap 13 mmol/L (10-20); BUN (Urea Nitrogen) 15 mg/dL (9.8-20.1); Calc. Creatinine Clearance 90 mL/min (70-130); Calcium 8.4 mg/dL (7.8-10.44); Carbon Dioxide 21 mmol/L (23-31); Chloride 106 mmol/L (98-107); Estimated GFR 83; Glucose 70 mg/dL (80-115); Potassium 3.9 mmol/L (3.5-5.1); Sodium 136 mmol/L (136-145)
[2022-07-21] MEDS: Propofol 1,000 MG/100 ML VIAL IV PRN ×3 (05:10→19:37)
[2022-07-21] MEDS: NOREPINEPHRINE 8 MG/250 ML-D5W 250 ML IVPB SCH (07:49)
[2022-07-21] MEDS: Pantoprazole 40 MG VIAL IVP SCH (07:49)
[2022-07-21] MEDS ORDERED: Dextrose 5% in Water 1,000 ML IV PRN (08:45)
[2022-07-21] MEDS ORDERED: Dextrose 50% Abboject 50 ML SYRINGE IVP PRN (08:45)
[2022-07-21] MEDS ORDERED: Furosemide 40 MG/4 ML VIAL SLOW IVP SCH (11:45)
[2022-07-21] MEDS ORDERED: Dexamethasone 10 MG/ML VIAL SLOW IVP SCH (11:45)
[2022-07-21] MEDS: Hydrocortisone Sod Succ/PF 100 mg/2 ml Vial IVP SCH ×3 (12:15→23:59)
[2022-07-21 12:29] LABS: Actual Bicarbonate (HCO3v) 22 mEq/L (22-28); Base Excess -3.9 mEq/L (-2.0 to +3.0); Calcium, Ionized (venous) 0.92 mmol/L (1.16-1.32); Chloride (VBG) 104 mmol/L (98-106); Hemoglobin (Hb) 10.2 g/dL (11.7-16.1); Potassium (VBG) 3.93 mmol/L (3.70-5.30); Sodium 127.7 mmol/L (133-146); pH (venous) 7.33 (7.32-7.43)
[2022-07-21] MEDS ORDERED: VANCOMYCIN 2 GRAM/500 ML BAG 2 GM in Premix Bag 1 BAG IVPB SCH (13:00)
[2022-07-21] MEDS: HumaLOG 300 UNITS/3 ML VIAL SC PRN ×2 (16:16→20:14)
[2022-07-21] MEDS ORDERED: Fentanyl CADD 100 ML ONE (16:47)
[2022-07-21] MEDS: Fentanyl CADD 100 ML IV SCH (17:03)
[2022-07-21] MEDS: Dexamethasone 10 MG/ML VIAL SLOW IVP SCH (20:13)
[2022-07-21] MEDS: Enoxaparin Sodium 40 MG/0.4 ML SYRINGE SC SCH (20:14)
[2022-07-21] MEDS: Senokot S 8.6-50 MG TAB PO SCH (20:14)
[2022-07-21] MEDS ORDERED: VANCOMYCIN 1.25 GM/250 ML BAG IVPB SCH (21:00)
[2022-07-22] MEDS: HumaLOG 300 UNITS/3 ML VIAL SC PRN ×7 (00:20→23:52)
[2022-07-22] MEDS: Propofol 1,000 MG/100 ML VIAL IV PRN ×5 (01:30→23:51)
[2022-07-22] MEDS: NOREPINEPHRINE 8 MG/250 ML-D5W 250 ML IVPB SCH (01:31)
[2022-07-22 04:03] LABS: #Lymphocytes 0.7 thou/uL (1.20-3.40); #Monocytes 0.4 thou/uL (0.11-0.59); #Neutrophils 6.3 thou/uL (1.40-6.50); %Basophils 0.1 % (0.0-1.0); %Eosinophils 0.1 % (0.0-10.0); %Lymphocytes 9.9 % (21.0-51.0); %Monocytes 4.8 % (0.0-10.0); %Neutrophils 85.1 % (42.0-75.0); Hemoglobin 9.2 g/dL (12.0-16.0); Mean Corpuscular HGB CONC 30.8 g/dL (32.0-36.0); Mean Corpuscular Hemoglobin 24.9 pg (27.0-31.0); Mean Corpuscular Volume 80.9 fl (78.0-98.0); Mean Platelet Volume 10.4 fL (7.4-10.4); Platelet Count 186 10x3/uL (130-400); RBC Distribution Width 17.4 % (11.5-14.5); Red Blood Cell (RBC) Count 3.71 mill/uL (4.20-5.40); White Blood Cell (WBC) Count 7.4 10x3/uL (4.8-10.8)
[2022-07-22 04:22] LABS: Anion Gap 13 mmol/L (10-20); BUN (Urea Nitrogen) 18 mg/dL (9.8-20.1); Calc. Creatinine Clearance 80 mL/min (70-130); Calcium 8.5 mg/dL (7.8-10.44); Carbon Dioxide 22 mmol/L (23-31); Chloride 104 mmol/L (98-107); Estimated GFR 73; Glucose 287 mg/dL (80-115); Sodium 135 mmol/L (136-145)
[2022-07-22] MEDS: Piperacillin/Tazobactam 3.375 GM in Sodium Chloride 0.9% 100 ML IVPB SCH ×3 (05:12→21:39)
[2022-07-22] MEDS: Hydrocortisone Sod Succ/PF 100 mg/2 ml Vial IVP SCH ×2 (05:12→21:39)
[2022-07-22] MEDS: Furosemide 40 MG/4 ML VIAL SLOW IVP SCH (05:13)
[2022-07-22] MEDS ORDERED: Fentanyl CADD 100 ML ONE ×2 (05:51→18:51)
[2022-07-22] MEDS: Fentanyl CADD 100 ML IV SCH ×2 (05:53→18:57)
[2022-07-22 06:57] LABS: Actual Bicarbonate (HCO3a) 23.8 mEq/L (22-28); Base Excess (BEa) -1.7 mEq/L (-2.0 to +3.0); CO2 Tension 43.3 mmHg (35.0-45.0); Calcium, Ionized (arterial) 0.98 mmol/L (1.12-1.30); Carboxyhemoglobin (COHb) 0.8 gm% (0.0-3.0); Hemoglobin (Hb) 10.3 g/dL (12.0-16.0); O2 Tension (PaO2), arterial 78.1 mmHg (> 80.0); Potassium - ABG Lab 3.48 mmol/L (3.70-5.30); pH, Arterial 7.36 (7.35-7.45)
[2022-07-22 07:15] LABS: ALV-art Gradient 366.875 mmHg (0-20); Puncture Site RBA
[2022-07-22] MEDS: Dexamethasone 10 MG/ML VIAL SLOW IVP SCH ×2 (08:35→21:38)
[2022-07-22] MEDS: Pantoprazole 40 MG VIAL IVP SCH (08:35)
[2022-07-22] MEDS: Enoxaparin Sodium 40 MG/0.4 ML SYRINGE SC SCH ×2 (08:35→21:39)
[2022-07-22] MEDS: Senokot S 8.6-50 MG TAB PO SCH ×2 (08:35→21:40)
[2022-07-22] MEDS: Polyethylene Glycol 3350 17 GM Packet PER TUBE SCH (08:36)
[2022-07-22] MEDS: Midazolam HCl 2 mg/2 ml Vial SLOW IVP PRN (08:50)
[2022-07-22] MEDS ORDERED: Midazolam In 0.9 % NaCl/PF 100 ML IVPB SCH (09:45)
[2022-07-22] MEDS ORDERED: BARICITINIB 2 MG TAB PO SCH (10:00)
[2022-07-22] MEDS: Vancomycin 1.5 GRAM/300 ML BAG 1.5 GM in Premix Bag 1 BAG IVPB SCH (12:14)
[2022-07-23] MEDS: HumaLOG 300 UNITS/3 ML VIAL SC PRN ×4 (04:47→20:51)
[2022-07-23] MEDS: Propofol 1,000 MG/100 ML VIAL IV PRN ×2 (04:47→07:59)
[2022-07-23] MEDS: Furosemide 40 MG/4 ML VIAL SLOW IVP SCH (04:48)
[2022-07-23] MEDS: Piperacillin/Tazobactam 3.375 GM in Sodium Chloride 0.9% 100 ML IVPB SCH ×3 (04:48→20:19)
[2022-07-23 05:21] LABS: #Lymphocytes 1.3 thou/uL (1.20-3.40); #Monocytes 0.5 thou/uL (0.11-0.59); #Neutrophils 4.7 thou/uL (1.40-6.50); %Basophils 0.1 % (0.0-1.0); %Eosinophils 0.2 % (0.0-10.0); %Lymphocytes 19.7 % (21.0-51.0); %Neutrophils 72.1 % (42.0-75.0); Hemoglobin 9.2 g/dL (12.0-16.0); Mean Corpuscular HGB CONC 30.6 g/dL (32.0-36.0); Mean Corpuscular Hemoglobin 24.6 pg (27.0-31.0); Mean Corpuscular Volume 80.5 fl (78.0-98.0); Mean Platelet Volume 9.6 fL (7.4-10.4); Platelet Count 226 10x3/uL (130-400); RBC Distribution Width 17.3 % (11.5-14.5); Red Blood Cell (RBC) Count 3.72 mill/uL (4.20-5.40); White Blood Cell (WBC) Count 6.5 10x3/uL (4.8-10.8)
[2022-07-23 05:46] LABS: Anion Gap 11 mmol/L (10-20); BUN (Urea Nitrogen) 26 mg/dL (9.8-20.1); Calc. Creatinine Clearance 75 mL/min (70-130); Calcium 8.5 mg/dL (7.8-10.44); Carbon Dioxide 27 mmol/L (23-31); Chloride 106 mmol/L (98-107); Estimated GFR 67; Glucose 234 mg/dL (80-115); Potassium 3.8 mmol/L (3.5-5.1); Sodium 140 mmol/L (136-145)
[2022-07-23] MEDS: Fentanyl CADD 100 ML IV SCH ×2 (07:59→20:50)
[2022-07-23] MEDS: Polyethylene Glycol 3350 17 GM Packet PER TUBE SCH (08:03)
[2022-07-23] MEDS: Enoxaparin Sodium 40 MG/0.4 ML SYRINGE SC SCH ×2 (08:03→20:20)
[2022-07-23] MEDS: BARICITINIB 2 MG TAB PO SCH (08:04)
[2022-07-23] MEDS: Insulin Glargine 30 UNITS/0.3 ML VIAL SC SCH (08:04)
[2022-07-23] MEDS: Hydrocortisone Sod Succ/PF 100 mg/2 ml Vial IVP SCH (08:04)
[2022-07-23] MEDS: Pantoprazole 40 MG VIAL IVP SCH (08:04)
[2022-07-23] MEDS: Senokot S 8.6-50 MG TAB PO SCH ×2 (08:04→20:20)
[2022-07-23] MEDS: Dexamethasone 10 MG/ML VIAL SLOW IVP SCH ×2 (08:04→20:20)
[2022-07-23 12:52] LABS: Vancomycin, Trough 16.6 ug/mL
[2022-07-23] MEDS: Vancomycin 1.5 GRAM/300 ML BAG 1.5 GM in Premix Bag 1 BAG IVPB SCH (13:28)
[2022-07-23] MEDS: Midazolam HCl 2 mg/2 ml Vial SLOW IVP PRN ×2 (20:20→22:40)
[2022-07-23] MEDS ORDERED: FLU VACC QS2022-23(65YR UP)/PF 240 MCG/0.7 ML SYRINGE IM ONE (23:00)
[2022-07-24] MEDS: Midazolam HCl 2 mg/2 ml Vial SLOW IVP PRN ×5 (03:46→21:48)
[2022-07-24] MEDS: HumaLOG 300 UNITS/3 ML VIAL SC PRN ×5 (03:55→20:26)
[2022-07-24 04:07] LABS: #Lymphocytes 0.9 thou/uL (1.20-3.40); #Monocytes 0.4 thou/uL (0.11-0.59); #Neutrophils 2.5 thou/uL (1.40-6.50); %Basophils 0.4 % (0.0-1.0); %Eosinophils 0.2 % (0.0-10.0); %Monocytes 9.7 % (0.0-10.0); %Neutrophils 65.8 % (42.0-75.0); Hemoglobin 8.7 g/dL (12.0-16.0); Mean Corpuscular HGB CONC 30.7 g/dL (32.0-36.0); Mean Corpuscular Hemoglobin 24.6 pg (27.0-31.0); Mean Corpuscular Volume 80.1 fl (78.0-98.0); Mean Platelet Volume 9.6 fL (7.4-10.4); Platelet Count 155 10x3/uL (130-400); RBC Distribution Width 17.2 % (11.5-14.5); Red Blood Cell (RBC) Count 3.54 mill/uL (4.20-5.40); White Blood Cell (WBC) Count 3.9 10x3/uL (4.8-10.8)
[2022-07-24 04:19] LABS: Phosphorus 3.6 mg/dL (2.3-4.7)
[2022-07-24 04:22] LABS: ALT (SGPT) Less than 7 U/L (8-55); AST (SGOT) 9 U/L (5-34); Albumin 2.5 g/dL (3.4-4.8); Alkaline Phosphatase 86 U/L (40-110); Anion Gap 9 mmol/L (10-20); BUN (Urea Nitrogen) 32 mg/dL (9.8-20.1); Bilirubin, Direct 0.2 mg/dL (0.1-0.3); Bilirubin, Total 0.4 mg/dL (0.2-1.2); Calc. Creatinine Clearance 74 mL/min (70-130); Calcium 8.2 mg/dL (7.8-10.44); Carbon Dioxide 29 mmol/L (23-31); Chloride 107 mmol/L (98-107); Estimated GFR 68; Globulin 3.1 g/dL (2.4-3.5); Glucose 247 mg/dL (80-115); Magnesium 2.3 mg/dL (1.6-2.6); Potassium 3.8 mmol/L (3.5-5.1); Protein, Total 5.6 g/dL (5.8-8.1); Sodium 141 mmol/L (136-145)
[2022-07-24] MEDS: Piperacillin/Tazobactam 3.375 GM in Sodium Chloride 0.9% 100 ML IVPB SCH ×3 (05:05→20:08)
[2022-07-24] MEDS: Propofol 1,000 MG/100 ML VIAL IV PRN ×2 (06:30→22:19)
[2022-07-24 08:22] LABS: Actual Bicarbonate (HCO3a) 28.3 mEq/L (22-28); Base Excess (BEa) 4.5 mEq/L (-2.0 to +3.0); CO2 Tension 39.3 mmHg (35.0-45.0); Calcium, Ionized (arterial) 0.94 mmol/L (1.12-1.30); Carboxyhemoglobin (COHb) 0.8 gm% (0.0-3.0); O2 Tension (PaO2), arterial 72.5 mmHg (> 80.0); Potassium - ABG Lab 3.67 mmol/L (3.70-5.30); pH, Arterial 7.48 (7.35-7.45)
[2022-07-24 08:23] LABS: ALV-art Gradient 163.575 mmHg (0-20)
[2022-07-24] MEDS: Polyethylene Glycol 3350 17 GM Packet PER TUBE SCH (08:27)
[2022-07-24] MEDS: Senokot S 8.6-50 MG TAB PO SCH ×2 (08:27→21:47)
[2022-07-24] MEDS: BARICITINIB 2 MG TAB PO SCH (08:27)
[2022-07-24] MEDS: Enoxaparin Sodium 40 MG/0.4 ML SYRINGE SC SCH ×2 (08:28→20:09)
[2022-07-24] MEDS: Pantoprazole 40 MG VIAL IVP SCH (08:28)
[2022-07-24] MEDS: Dexamethasone 10 MG/ML VIAL SLOW IVP SCH ×2 (08:28→20:18)
[2022-07-24] MEDS: Insulin Glargine 30 UNITS/0.3 ML VIAL SC SCH (08:28)
[2022-07-24] MEDS ORDERED: Fentanyl CADD 100 ML ONE (15:18)
[2022-07-24] MEDS: Fentanyl CADD 100 ML IV SCH (15:20)
[2022-07-25] MEDS: HumaLOG 300 UNITS/3 ML VIAL SC PRN ×6 (00:17→20:34)
[2022-07-25] MEDS: Midazolam HCl 2 mg/2 ml Vial SLOW IVP PRN (01:02)
[2022-07-25] MEDS: Piperacillin/Tazobactam 3.375 GM in Sodium Chloride 0.9% 100 ML IVPB SCH ×3 (04:56→20:25)
[2022-07-25 05:17] LABS: #Lymphocytes 0.6 thou/uL (1.20-3.40); #Monocytes 0.4 thou/uL (0.11-0.59); #Neutrophils 3.5 thou/uL (1.40-6.50); %Basophils 0.5 % (0.0-1.0); %Eosinophils 0.2 % (0.0-10.0); %Lymphocytes 13.9 % (21.0-51.0); %Monocytes 9.3 % (0.0-10.0); %Neutrophils 76.2 % (42.0-75.0); Hemoglobin 8.9 g/dL (12.0-16.0); Mean Corpuscular HGB CONC 30.8 g/dL (32.0-36.0); Mean Corpuscular Hemoglobin 25.1 pg (27.0-31.0); Mean Corpuscular Volume 81.5 fl (78.0-98.0); Mean Platelet Volume 9.5 fL (7.4-10.4); Platelet Count 157 10x3/uL (130-400); RBC Distribution Width 17.1 % (11.5-14.5); Red Blood Cell (RBC) Count 3.54 mill/uL (4.20-5.40); White Blood Cell (WBC) Count 4.6 10x3/uL (4.8-10.8)
[2022-07-25 05:32] LABS: Phosphorus 2.8 mg/dL (2.3-4.7)
[2022-07-25 05:33] LABS: ALT (SGPT) 9 U/L (8-55); AST (SGOT) 13 U/L (5-34); Albumin 2.6 g/dL (3.4-4.8); Alkaline Phosphatase 79 U/L (40-110); Anion Gap 8 mmol/L (10-20); BUN (Urea Nitrogen) 33 mg/dL (9.8-20.1); Bilirubin, Total 0.4 mg/dL (0.2-1.2); Calc. Creatinine Clearance 86 mL/min (70-130); Calcium 8.3 mg/dL (7.8-10.44); Carbon Dioxide 32 mmol/L (23-31); Chloride 111 mmol/L (98-107); Estimated GFR 85; Globulin 2.8 g/dL (2.4-3.5); Glucose 225 mg/dL (80-115); Magnesium 2.2 mg/dL (1.6-2.6); Protein, Total 5.4 g/dL (5.8-8.1); Sodium 147 mmol/L (136-145)
[2022-07-25] MEDS ORDERED: DC Sedation Protocol FS ONE (07:42)
[2022-07-25] MEDS: Pantoprazole 40 MG VIAL IVP SCH (10:06)
[2022-07-25] MEDS: Enoxaparin Sodium 40 MG/0.4 ML SYRINGE SC SCH ×2 (10:06→20:25)
[2022-07-25] MEDS: Dexamethasone 10 MG/ML VIAL SLOW IVP SCH (10:06)
[2022-07-25] MEDS: Insulin Glargine 30 UNITS/0.3 ML VIAL SC SCH (10:08)
[2022-07-25] MEDS: BARICITINIB 2 MG TAB PO SCH (10:08)
[2022-07-25] MEDS: Senokot S 8.6-50 MG TAB PO SCH ×2 (10:09→22:41)
[2022-07-25] MEDS: Polyethylene Glycol 3350 17 GM Packet PER TUBE SCH (10:09)
[2022-07-26] MEDS: HumaLOG 300 UNITS/3 ML VIAL SC PRN ×3 (00:13→20:06)
[2022-07-26 04:19] LABS: #Eosinphils 0.1 thou/uL (0.0-0.7); #Lymphocytes 0.9 thou/uL (1.20-3.40); #Monocytes 0.7 thou/uL (0.11-0.59); #Neutrophils 4.7 thou/uL (1.40-6.50); %Basophils 0.1 % (0.0-1.0); %Eosinophils 0.8 % (0.0-10.0); %Lymphocytes 14.2 % (21.0-51.0); %Monocytes 11.1 % (0.0-10.0); %Neutrophils 73.7 % (42.0-75.0); Hemoglobin 8.8 g/dL (12.0-16.0); Mean Corpuscular HGB CONC 29.6 g/dL (32.0-36.0); Mean Corpuscular Hemoglobin 23.8 pg (27.0-31.0); Mean Corpuscular Volume 80.5 fl (78.0-98.0); Mean Platelet Volume 10.2 fL (7.4-10.4); Platelet Count 154 10x3/uL (130-400); RBC Distribution Width 17.5 % (11.5-14.5); White Blood Cell (WBC) Count 6.3 10x3/uL (4.8-10.8)
[2022-07-26 04:34] LABS: Anion Gap 7 mmol/L (10-20); BUN (Urea Nitrogen) 24 mg/dL (9.8-20.1); Calc. Creatinine Clearance 99 mL/min (70-130); Carbon Dioxide 33 mmol/L (23-31); Chloride 109 mmol/L (98-107); Potassium 3.4 mmol/L (3.5-5.1); Sodium 146 mmol/L (136-145)
[2022-07-26 04:35] LABS: Calcium 8.2 mg/dL (7.8-10.44); Estimated GFR 95; Glucose 138 mg/dL (80-115)
[2022-07-26] MEDS: Piperacillin/Tazobactam 3.375 GM in Sodium Chloride 0.9% 100 ML IVPB SCH ×3 (05:00→20:11)
[2022-07-26] MEDS ORDERED: Electrolyte Replacement Protocol 1 EACH FS ONE (07:55)
[2022-07-26] MEDS: Potassium Chloride 20 MEQ in Premix Bag 1 BAG IVPB SCH ×2 (07:59→10:30)
[2022-07-26] MEDS: Dexamethasone 10 MG/ML VIAL SLOW IVP SCH (08:04)
[2022-07-26] MEDS: Enoxaparin Sodium 40 MG/0.4 ML SYRINGE SC SCH ×2 (08:06→20:12)
[2022-07-26] MEDS: Insulin Glargine 30 UNITS/0.3 ML VIAL SC SCH (08:06)
[2022-07-26] MEDS: Pantoprazole 40 MG VIAL IVP SCH (08:07)
[2022-07-26] MEDS: Senokot S 8.6-50 MG TAB PO SCH ×2 (08:41→20:13)
[2022-07-26] MEDS: Lansoprazole 15 MG/5 ML (BATCHED)UDCUP PER TUBE SCH (08:41)
[2022-07-26] MEDS: BARICITINIB 2 MG TAB PO SCH (08:41)
[2022-07-26] MEDS: Polyethylene Glycol 3350 17 GM Packet PER TUBE SCH (08:41)
[2022-07-26] MEDS: Scopolamine 1.5 mg/72 hour Patch TD SCH (11:08)
[2022-07-26 12:23] LABS: Phosphorus 2.6 mg/dL (2.3-4.7)
[2022-07-26] MEDS ORDERED: Magnesium 2 GM/50 ML(in water) 2 GM in Premix Bag 1 BAG IVPB SCH (13:15)
[2022-07-26 14:21] LABS: Potassium 4.1 mmol/L (3.5-5.1)
[2022-07-26] MEDS: Amiodarone 450 MG, Admixture Fee 1 EACH in Dextrose 5% in Water 250 ML IVPB SCH ×2 (15:08→21:43)
[2022-07-27] MEDS: Piperacillin/Tazobactam 3.375 GM in Sodium Chloride 0.9% 100 ML IVPB SCH ×2 (04:06→11:52)
[2022-07-27 05:12] LABS: Phosphorus 2.7 mg/dL (2.3-4.7)
[2022-07-27 05:13] LABS: ALT (SGPT) 14 U/L (8-55); AST (SGOT) 27 U/L (5-34); Albumin 2.6 g/dL (3.4-4.8); Alkaline Phosphatase 93 U/L (40-110); Anion Gap 11 mmol/L (10-20); BUN (Urea Nitrogen) 21 mg/dL (9.8-20.1); Bilirubin, Direct 0.3 mg/dL (0.1-0.3); Bilirubin, Total 0.6 mg/dL (0.2-1.2); Calc. Creatinine Clearance 104 mL/min (70-130); Carbon Dioxide 28 mmol/L (23-31); Chloride 110 mmol/L (98-107); Estimated GFR 95; Globulin 2.7 g/dL (2.4-3.5); Glucose 143 mg/dL (80-115); Magnesium 2.3 mg/dL (1.6-2.6); Potassium 3.3 mmol/L (3.5-5.1); Protein, Total 5.3 g/dL (5.8-8.1); Sodium 146 mmol/L (136-145)
[2022-07-27 05:51] LABS: Band 6 % (5-11); Hemoglobin 9.4 g/dL (12.0-16.0); Lymphocytes 10 % (21-51); MDiff Complete? YES; Mean Corpuscular HGB CONC 30.2 g/dL (32.0-36.0); Mean Corpuscular Hemoglobin 24.6 pg (27.0-31.0); Mean Corpuscular Volume 81.4 fl (78.0-98.0); Mean Platelet Volume 10.6 fL (7.4-10.4); Monocytes 9 % (0-10); Myelocyte 1 % (0-0); Neutrophil 74 % (42-75); Platelet Count 177 10x3/uL (130-400); RBC Distribution Width 17.7 % (11.5-14.5); Red Blood Cell (RBC) Count 3.82 mill/uL (4.20-5.40); White Blood Cell (WBC) Count 7.5 10x3/uL (4.8-10.8)
[2022-07-27] MEDS: Dexamethasone 10 MG/ML VIAL SLOW IVP SCH (07:17)
[2022-07-27] MEDS: Insulin Glargine 30 UNITS/0.3 ML VIAL SC SCH (07:17)
[2022-07-27] MEDS: Enoxaparin Sodium 40 MG/0.4 ML SYRINGE SC SCH ×2 (07:18→21:47)
[2022-07-27] MEDS: Polyethylene Glycol 3350 17 GM Packet PER TUBE SCH (07:18)
[2022-07-27] MEDS: Senokot S 8.6-50 MG TAB PO SCH ×2 (07:18→21:47)
[2022-07-27] MEDS: Potassium Chloride 20 MEQ in Premix Bag 1 BAG IVPB SCH ×2 (07:18→09:49)
[2022-07-27] MEDS: Lansoprazole 15 MG/5 ML (BATCHED)UDCUP PER TUBE SCH (07:18)
[2022-07-27] MEDS: BARICITINIB 2 MG TAB PO SCH (07:18)
[2022-07-27] MEDS: Amiodarone 450 MG, Admixture Fee 1 EACH in Dextrose 5% in Water 250 ML IVPB SCH (09:49)
[2022-07-28 04:50] LABS: Phosphorus 2.5 mg/dL (2.3-4.7)
[2022-07-28 04:51] LABS: ALT (SGPT) 12 U/L (8-55); AST (SGOT) 16 U/L (5-34); Albumin 2.8 g/dL (3.4-4.8); Alkaline Phosphatase 89 U/L (40-110); Anion Gap 12 mmol/L (10-20); BUN (Urea Nitrogen) 18 mg/dL (9.8-20.1); Bilirubin, Total 0.7 mg/dL (0.2-1.2); Calc. Creatinine Clearance 101 mL/min (70-130); Calcium 8.1 mg/dL (7.8-10.44); Carbon Dioxide 25 mmol/L (23-31); Chloride 112 mmol/L (98-107); Estimated GFR 95; Globulin 2.7 g/dL (2.4-3.5); Glucose 93 mg/dL (80-115); Potassium 3.5 mmol/L (3.5-5.1); Protein, Total 5.5 g/dL (5.8-8.1); Sodium 145 mmol/L (136-145)
[2022-07-28 05:25] LABS: #Eosinphils 0.1 thou/uL (0.0-0.7); #Lymphocytes 1.2 thou/uL (1.20-3.40); #Monocytes 0.8 thou/uL (0.11-0.59); #Neutrophils 6.6 thou/uL (1.40-6.50); %Basophils 0.2 % (0.0-1.0); %Eosinophils 1.3 % (0.0-10.0); %Monocytes 9.2 % (0.0-10.0); %Neutrophils 75.3 % (42.0-75.0); Hemoglobin 9.3 g/dL (12.0-16.0); MDiff Complete? YES; Mean Corpuscular HGB CONC 29.2 g/dL (32.0-36.0); Mean Corpuscular Hemoglobin 23.8 pg (27.0-31.0); Mean Corpuscular Volume 81.3 fl (78.0-98.0); Platelet Count 192 10x3/uL (130-400); RBC Distribution Width 18.5 % (11.5-14.5); Red Blood Cell (RBC) Count 3.89 mill/uL (4.20-5.40); Schistocytes SLIGHT = 2-5 cells (100X) (0-1/hpf); White Blood Cell (WBC) Count 8.8 10x3/uL (4.8-10.8)
[2022-07-28] MEDS ORDERED: Magnesium 2 GM/50 ML(in water) 2 GM in Premix Bag 1 BAG IVPB SCH (08:00)
[2022-07-28] MEDS: Polyethylene Glycol 3350 17 GM Packet PER TUBE SCH (09:00)
[2022-07-28] MEDS: Senokot S 8.6-50 MG TAB PO SCH ×2 (09:00→20:57)
[2022-07-28] MEDS: Lansoprazole 15 MG/5 ML (BATCHED)UDCUP PER TUBE SCH (09:00)
[2022-07-28] MEDS: BARICITINIB 2 MG TAB PO SCH (09:00)
[2022-07-28] MEDS: Enoxaparin Sodium 40 MG/0.4 ML SYRINGE SC SCH ×2 (10:10→20:57)
[2022-07-28] MEDS: Dexamethasone 10 MG/ML VIAL SLOW IVP SCH (10:11)
[2022-07-28] MEDS: Insulin Glargine 30 UNITS/0.3 ML VIAL SC SCH (10:11)
[2022-07-28 11:37] LABS: Potassium 3.4 mmol/L (3.5-5.1)
[2022-07-28] MEDS: HumaLOG 300 UNITS/3 ML VIAL SC PRN (13:38)
[2022-07-28] MEDS ORDERED: Potassium Phosphate 30 MMOL in Sodium Chloride 0.9% 250 ML 250 ML IVPB SCH (14:00)
[2022-07-29] MEDS: Insulin Glargine 30 UNITS/0.3 ML VIAL SC SCH (08:41)
[2022-07-29] MEDS: Lansoprazole 15 MG/5 ML (BATCHED)UDCUP PER TUBE SCH (08:41)
[2022-07-29] MEDS: Senokot S 8.6-50 MG TAB PO SCH ×2 (08:41→21:11)
[2022-07-29] MEDS: BARICITINIB 2 MG TAB PO SCH (08:41)
[2022-07-29] MEDS: Polyethylene Glycol 3350 17 GM Packet PER TUBE SCH (08:41)
[2022-07-29] MEDS: Dexamethasone 10 MG/ML VIAL SLOW IVP SCH (10:06)
[2022-07-29] MEDS: Scopolamine 1.5 mg/72 hour Patch TD SCH (10:06)
[2022-07-29] MEDS: Enoxaparin Sodium 40 MG/0.4 ML SYRINGE SC SCH ×2 (10:07→21:11)
[2022-07-29] MEDS: HumaLOG 300 UNITS/3 ML VIAL SC PRN (17:16)
[2022-07-30 04:39] LABS: Hemoglobin 9.2 g/dL (12.0-16.0); Mean Corpuscular HGB CONC 30.2 g/dL (32.0-36.0); Mean Corpuscular Hemoglobin 24.5 pg (27.0-31.0); Mean Corpuscular Volume 81.2 fl (78.0-98.0); Mean Platelet Volume 11.2 fL (7.4-10.4); Platelet Count 191 10x3/uL (130-400); RBC Distribution Width 19.5 % (11.5-14.5); Red Blood Cell (RBC) Count 3.74 mill/uL (4.20-5.40); White Blood Cell (WBC) Count 11.1 10x3/uL (4.8-10.8)
[2022-07-30 05:01] LABS: ALT (SGPT) 10 U/L (8-55); AST (SGOT) 15 U/L (5-34); Albumin 2.7 g/dL (3.4-4.8); Alkaline Phosphatase 95 U/L (40-110); Anion Gap 13 mmol/L (10-20); BUN (Urea Nitrogen) 15 mg/dL (9.8-20.1); Bilirubin, Direct 0.4 mg/dL (0.1-0.3); Bilirubin, Total 0.8 mg/dL (0.2-1.2); Calc. Creatinine Clearance 101 mL/min (70-130); Carbon Dioxide 23 mmol/L (23-31); Chloride 109 mmol/L (98-107); Estimated GFR 95; Glucose 137 mg/dL (80-115); Potassium 3.7 mmol/L (3.5-5.1); Protein, Total 5.5 g/dL (5.8-8.1); Sodium 141 mmol/L (136-145)
[2022-07-30] MEDS: Senokot S 8.6-50 MG TAB PO SCH ×2 (07:54→21:52)
[2022-07-30] MEDS: Polyethylene Glycol 3350 17 GM Packet PER TUBE SCH (07:54)
[2022-07-30] MEDS: BARICITINIB 2 MG TAB PO SCH (08:56)
[2022-07-30] MEDS: Lansoprazole 15 MG/5 ML (BATCHED)UDCUP PER TUBE SCH (08:57)
[2022-07-30] MEDS: Enoxaparin Sodium 40 MG/0.4 ML SYRINGE SC SCH (08:57)
[2022-07-30] MEDS: Dexamethasone 4 mg/ml Vial SLOW IVP SCH (09:00)
[2022-07-30] MEDS ORDERED: DRY MOUTH SPRAY MM PRN (11:21)
[2022-07-30] MEDS ORDERED: Nitroglycerin 2% Ointment 1 INCH/1 GM Packet TOP SCH (13:30)
[2022-07-30 14:54] LABS: Hemoglobin 9.2 g/dL (12.0-16.0); Platelet Count 203 10x3/uL (130-400)
[2022-07-30] MEDS: Heparin 25,000 units/D5W 500 ML IVPB SCH (15:07)
[2022-07-30] MEDS: Heparin 10,000 UNITS/ 10 ML VIAL SLOW IVP SCH ×2 (15:07→21:52)
[2022-07-30] MEDS: Insulin Glargine 30 UNITS/0.3 ML VIAL SC SCH (21:58)
[2022-07-31] MEDS ORDERED: Nitroglycerin 0.4 MG TAB (25 Tab Bottle) ONE (03:25)
[2022-07-31] MEDS: Heparin 10,000 UNITS/ 10 ML VIAL SLOW IVP SCH ×2 (06:23→14:13)
[2022-07-31 09:16] LABS: Hemoglobin 9.3 g/dL (12.0-16.0); Mean Corpuscular HGB CONC 30.3 g/dL (32.0-36.0); Mean Corpuscular Hemoglobin 24.7 pg (27.0-31.0); Mean Corpuscular Volume 81.6 fl (78.0-98.0); Mean Platelet Volume 11.1 fL (7.4-10.4); Platelet Count 185 10x3/uL (130-400); RBC Distribution Width 19.2 % (11.5-14.5); Red Blood Cell (RBC) Count 3.77 mill/uL (4.20-5.40); White Blood Cell (WBC) Count 11.7 10x3/uL (4.8-10.8)
[2022-07-31] MEDS ORDERED: Nitroglycerin 2% Ointment 1 INCH/1 GM Packet TOP SCH (09:45)
[2022-07-31] MEDS: Lansoprazole 15 MG/5 ML (BATCHED)UDCUP PER TUBE SCH (10:16)
[2022-07-31] MEDS: Dexamethasone 4 mg/ml Vial SLOW IVP SCH (10:17)
[2022-07-31] MEDS: BARICITINIB 2 MG TAB PO SCH (10:17)
[2022-07-31] MEDS: Polyethylene Glycol 3350 17 GM Packet PER TUBE SCH (10:18)
[2022-07-31] MEDS: Senokot S 8.6-50 MG TAB PO SCH ×2 (10:18→19:54)
[2022-07-31 12:13] LABS: CKMB 2.9 ng/mL (0-6.6)
[2022-07-31] MEDS: Heparin 25,000 units/D5W 500 ML IVPB SCH (13:13)
[2022-07-31] MEDS: Insulin Glargine 30 UNITS/0.3 ML VIAL SC SCH (19:55)
[2022-08-01 02:00] LABS: Mean Corpuscular HGB CONC 30.3 g/dL (32.0-36.0); Mean Corpuscular Hemoglobin 24.9 pg (27.0-31.0); Mean Corpuscular Volume 82.3 fl (78.0-98.0); Mean Platelet Volume 11.2 fL (7.4-10.4); Platelet Count 182 10x3/uL (130-400); RBC Distribution Width 18.8 % (11.5-14.5); Red Blood Cell (RBC) Count 3.63 mill/uL (4.20-5.40); White Blood Cell (WBC) Count 9.3 10x3/uL (4.8-10.8)
[2022-08-01] MEDS: Heparin 25,000 units/D5W 500 ML IVPB SCH ×2 (03:05→21:07)
[2022-08-01 03:09] LABS: Anion Gap 13 mmol/L (10-20); BUN (Urea Nitrogen) 13 mg/dL (9.8-20.1); Calc. Creatinine Clearance 111 mL/min (70-130); Calcium 7.9 mg/dL (7.8-10.44); Carbon Dioxide 21 mmol/L (23-31); Chloride 109 mmol/L (98-107); Estimated GFR 97; Glucose 95 mg/dL (80-115); Potassium 3.5 mmol/L (3.5-5.1); Sodium 139 mmol/L (136-145)
[2022-08-01] MEDS ORDERED: Electrolyte Replacement Protocol FS PRN (07:30)
[2022-08-01] MEDS ORDERED: Potassium Chloride 20 MEQ TAB PO SCH (08:00)
[2022-08-01 08:49] LABS: Magnesium 1.6 mg/dL (1.6-2.6); Phosphorus 1.9 mg/dL (2.3-4.7)
[2022-08-01] MEDS: Lansoprazole 15 MG/5 ML (BATCHED)UDCUP PER TUBE SCH (08:58)
[2022-08-01] MEDS: Dexamethasone 4 mg/ml Vial SLOW IVP SCH (08:59)
[2022-08-01] MEDS: BARICITINIB 2 MG TAB PO SCH (09:05)
[2022-08-01] MEDS: Scopolamine 1.5 mg/72 hour Patch TD SCH (09:06)
[2022-08-01] MEDS: Polyethylene Glycol 3350 17 GM Packet PER TUBE SCH (09:06)
[2022-08-01] MEDS: Senokot S 8.6-50 MG TAB PO SCH ×2 (09:06→21:01)
[2022-08-01] MEDS: Heparin 10,000 UNITS/ 10 ML VIAL SLOW IVP SCH (09:07)
[2022-08-01] MEDS ORDERED: Magnesium 2 GM/50 ML(in water) 2 GM in Premix Bag 1 BAG IVPB SCH (10:30)
[2022-08-01] MEDS: PHOS-NAK 1 PKT PACK PO SCH ×2 (11:43→14:26)
[2022-08-01] MEDS: HumaLOG 300 UNITS/3 ML VIAL SC PRN (12:40)
[2022-08-01 15:16] LABS: Hemoglobin 9.1 g/dL (12.0-16.0); Platelet Count 191 10x3/uL (130-400)
[2022-08-01] MEDS: Vancomycin HCl 125 MG/5 ML (BATCHED) UDCUP PO SCH (18:23)
[2022-08-01 20:03] LABS: Campy jejuni + coli by PCR Negative (Negative); STEC Shiga Toxin 1+2 Negative (Negative); Salmonella spp. by PCR Negative (Negative); Shigella spp + EIEC by PCR Negative (Negative)
[2022-08-01] MEDS: Insulin Glargine 30 UNITS/0.3 ML VIAL SC SCH (20:59)
[2022-08-01] MEDS: Acetaminophen 325 MG TAB PO PRN (20:59)
[2022-08-01] MEDS: Nitroglycerin 2% Ointment 1 INCH/1 GM Packet TOP PRN (21:13)
[2022-08-02] MEDS: Vancomycin HCl 125 MG/5 ML (BATCHED) UDCUP PO SCH ×5 (01:16→23:32)
[2022-08-02] MEDS ORDERED: Ondansetron PF 4 MG/2 ML Vial IVP PRN (04:28)
[2022-08-02 04:58] LABS: #Basophils 0.1 thou/uL (0.0-0.2); #Eosinphils 0.4 thou/uL (0.0-0.7); #Lymphocytes 1.9 thou/uL (1.20-3.40); #Monocytes 0.7 thou/uL (0.11-0.59); #Neutrophils 8.3 thou/uL (1.40-6.50); %Basophils 0.5 % (0.0-1.0); %Eosinophils 3.7 % (0.0-10.0); %Lymphocytes 16.5 % (21.0-51.0); %Monocytes 5.9 % (0.0-10.0); %Neutrophils 73.4 % (42.0-75.0); Hemoglobin 9.6 g/dL (12.0-16.0); Mean Corpuscular HGB CONC 30.1 g/dL (32.0-36.0); Mean Corpuscular Hemoglobin 24.8 pg (27.0-31.0); Mean Corpuscular Volume 82.5 fl (78.0-98.0); Mean Platelet Volume 11.1 fL (7.4-10.4); Platelet Count 251 10x3/uL (130-400); RBC Distribution Width 18.8 % (11.5-14.5); Red Blood Cell (RBC) Count 3.88 mill/uL (4.20-5.40); White Blood Cell (WBC) Count 11.4 10x3/uL (4.8-10.8)
[2022-08-02 05:23] LABS: ALT (SGPT) 14 U/L (8-55); AST (SGOT) 18 U/L (5-34); Alkaline Phosphatase 119 U/L (40-110); Bilirubin, Direct 0.3 mg/dL (0.1-0.3); Bilirubin, Total 0.6 mg/dL (0.2-1.2); Magnesium 1.8 mg/dL (1.6-2.6); Protein, Total 5.7 g/dL (5.8-8.1)
[2022-08-02 05:25] LABS: ALT (SGPT) 14 U/L (8-55); AST (SGOT) 20 U/L (5-34); Alkaline Phosphatase 120 U/L (40-110); Anion Gap 12 mmol/L (10-20); BUN (Urea Nitrogen) 11 mg/dL (9.8-20.1); Bilirubin, Total 0.6 mg/dL (0.2-1.2); Calc. Creatinine Clearance 101 mL/min (70-130); Calcium 8.4 mg/dL (7.8-10.44); Carbon Dioxide 24 mmol/L (23-31); Chloride 105 mmol/L (98-107); Estimated GFR 95; Globulin 2.8 g/dL (2.4-3.5); Glucose 108 mg/dL (80-115); Phosphorus 2.1 mg/dL (2.3-4.7); Potassium 3.7 mmol/L (3.5-5.1); Protein, Total 5.8 g/dL (5.8-8.1); Sodium 137 mmol/L (136-145)
[2022-08-02] MEDS ORDERED: Magnesium 2 GM/50 ML(in water) 2 GM in Premix Bag 1 BAG IVPB SCH (08:00)
[2022-08-02] MEDS: Famotidine/PF 20 mg/2ml Vial SLOW IVP SCH ×2 (08:19→19:58)
[2022-08-02] MEDS: BARICITINIB 2 MG TAB PO SCH (08:19)
[2022-08-02] MEDS: Dexamethasone 4 mg/ml Vial SLOW IVP SCH (08:19)
[2022-08-02] MEDS: Polyethylene Glycol 3350 17 GM Packet PER TUBE SCH (08:20)
[2022-08-02] MEDS: Senokot S 8.6-50 MG TAB PO SCH ×2 (08:20→20:00)
[2022-08-02] MEDS ORDERED: Cefepime 2 GM in Sodium Chloride 0.9% 100 ML IVPB SCH (09:00)
[2022-08-02] MEDS: Insulin Glargine 30 UNITS/0.3 ML VIAL SC SCH (19:58)
[2022-08-02] MEDS: Acetaminophen 325 MG TAB PO PRN (19:58)
[2022-08-02] MEDS: Nitroglycerin 2% Ointment 1 INCH/1 GM Packet TOP PRN (19:59)
[2022-08-03] MEDS: Nitroglycerin 0.4 MG TAB (25 Tab Bottle) SL PRN ×2 (03:38→12:42)
[2022-08-03] MEDS: Vancomycin HCl 125 MG/5 ML (BATCHED) UDCUP PO SCH ×4 (05:01→23:19)
[2022-08-03] MEDS: Heparin 25,000 units/D5W 500 ML IVPB SCH (06:06)
[2022-08-03 07:18] LABS: Magnesium 2.1 mg/dL (1.6-2.6)
[2022-08-03] MEDS: Famotidine/PF 20 mg/2ml Vial SLOW IVP SCH ×2 (09:37→20:24)
[2022-08-03] MEDS: Polyethylene Glycol 3350 17 GM Packet PER TUBE SCH (09:38)
[2022-08-03] MEDS: BARICITINIB 2 MG TAB PO SCH (09:38)
[2022-08-03] MEDS: Dexamethasone 4 mg/ml Vial SLOW IVP SCH (09:38)
[2022-08-03] MEDS: Senokot S 8.6-50 MG TAB PO SCH ×2 (09:39→20:26)
[2022-08-03 11:25] LABS: #Basophils 0.1 thou/uL (0.0-0.2); #Eosinphils 0.7 thou/uL (0.0-0.7); #Lymphocytes 1.1 thou/uL (1.20-3.40); #Monocytes 0.7 thou/uL (0.11-0.59); #Neutrophils 8.7 thou/uL (1.40-6.50); %Basophils 0.6 % (0.0-1.0); %Eosinophils 6.5 % (0.0-10.0); %Monocytes 5.7 % (0.0-10.0); %Neutrophils 77.2 % (42.0-75.0); Hemoglobin 8.2 g/dL (12.0-16.0); Mean Corpuscular HGB CONC 30.2 g/dL (32.0-36.0); Mean Corpuscular Hemoglobin 24.8 pg (27.0-31.0); Mean Corpuscular Volume 82.1 fl (78.0-98.0); Mean Platelet Volume 11.9 fL (7.4-10.4); Platelet Count 189 10x3/uL (130-400); RBC Distribution Width 19.3 % (11.5-14.5); White Blood Cell (WBC) Count 11.3 10x3/uL (4.8-10.8)
[2022-08-03 11:35] LABS: ALT (SGPT) 11 U/L (8-55); AST (SGOT) 18 U/L (5-34); Albumin 2.9 g/dL (3.4-4.8); Alkaline Phosphatase 109 U/L (40-110); Anion Gap 11 mmol/L (10-20); BUN (Urea Nitrogen) 10 mg/dL (9.8-20.1); Bilirubin, Total 0.5 mg/dL (0.2-1.2); Calc. Creatinine Clearance 96 mL/min (70-130); Carbon Dioxide 23 mmol/L (23-31); Chloride 104 mmol/L (98-107); Estimated GFR 94; Globulin 2.5 g/dL (2.4-3.5); Glucose 187 mg/dL (80-115); Potassium 3.4 mmol/L (3.5-5.1); Protein, Total 5.4 g/dL (5.8-8.1); Sodium 135 mmol/L (136-145)
[2022-08-03] MEDS: Acetaminophen 325 MG TAB PO PRN ×2 (12:42→20:24)
[2022-08-03] MEDS ORDERED: Potassium Chloride 20 MEQ TAB PO SCH (13:30)
[2022-08-03] MEDS ORDERED: Aspirin 81 mg Enteric Coated Tablet PO SCH (14:45)
[2022-08-03] MEDS: HumaLOG 300 UNITS/3 ML VIAL SC PRN (17:17)
[2022-08-03] MEDS: Insulin Glargine 30 UNITS/0.3 ML VIAL SC SCH (20:25)
[2022-08-04] MEDS: Nitroglycerin 0.4 MG TAB (25 Tab Bottle) SL PRN ×3 (02:30→11:33)
[2022-08-04 04:14] LABS: ALT (SGPT) 15 U/L (8-55); AST (SGOT) 24 U/L (5-34); Alkaline Phosphatase 116 U/L (40-110); Anion Gap 13 mmol/L (10-20); BUN (Urea Nitrogen) 10 mg/dL (9.8-20.1); Bilirubin, Total 0.7 mg/dL (0.2-1.2); Calc. Creatinine Clearance 103 mL/min (70-130); Calcium 8.6 mg/dL (7.8-10.44); Carbon Dioxide 19 mmol/L (23-31); Chloride 110 mmol/L (98-107); Estimated GFR 96; Globulin 3.1 g/dL (2.4-3.5); Glucose 112 mg/dL (80-115); Potassium 4.3 mmol/L (3.5-5.1); Protein, Total 6.1 g/dL (5.8-8.1); Sodium 138 mmol/L (136-145)
[2022-08-04] MEDS: Vancomycin HCl 125 MG/5 ML (BATCHED) UDCUP PO SCH ×3 (05:32→18:05)
[2022-08-04] MEDS: Aspirin 81 mg Enteric Coated Tablet PO SCH (07:56)
[2022-08-04] MEDS: BARICITINIB 2 MG TAB PO SCH (07:56)
[2022-08-04] MEDS: Dexamethasone 4 mg/ml Vial SLOW IVP SCH (07:56)
[2022-08-04] MEDS: Famotidine/PF 20 mg/2ml Vial SLOW IVP SCH ×2 (07:57→21:42)
[2022-08-04] MEDS: Senokot S 8.6-50 MG TAB PO SCH ×2 (07:58→22:07)
[2022-08-04] MEDS: Polyethylene Glycol 3350 17 GM Packet PER TUBE SCH (07:58)
[2022-08-04 08:13] LABS: #Basophils 0.1 thou/uL (0.0-0.2); #Eosinphils 0.4 thou/uL (0.0-0.7); #Lymphocytes 1.6 thou/uL (1.20-3.40); #Monocytes 0.7 thou/uL (0.11-0.59); #Neutrophils 5.8 thou/uL (1.40-6.50); %Basophils 0.6 % (0.0-1.0); %Lymphocytes 18.9 % (21.0-51.0); %Monocytes 7.7 % (0.0-10.0); %Neutrophils 67.8 % (42.0-75.0); Hemoglobin 8.5 g/dL (12.0-16.0); Mean Corpuscular HGB CONC 29.6 g/dL (32.0-36.0); Mean Corpuscular Hemoglobin 24.7 pg (27.0-31.0); Mean Corpuscular Volume 83.5 fl (78.0-98.0); Mean Platelet Volume 11.5 fL (7.4-10.4); Platelet Count 224 10x3/uL (130-400); RBC Distribution Width 19.9 % (11.5-14.5); Red Blood Cell (RBC) Count 3.44 mill/uL (4.20-5.40); White Blood Cell (WBC) Count 8.5 10x3/uL (4.8-10.8)
[2022-08-04] MEDS: Scopolamine 1.5 mg/72 hour Patch TD SCH (11:32)
[2022-08-04] MEDS: HumaLOG 300 UNITS/3 ML VIAL SC PRN (11:33)
[2022-08-04] MEDS: Acetaminophen 325 MG TAB PO PRN (15:46)
[2022-08-04] MEDS: Enoxaparin Sodium 40 MG/0.4 ML SYRINGE SC SCH (21:42)
[2022-08-04] MEDS: Insulin Glargine 30 UNITS/0.3 ML VIAL SC SCH (22:07)
[2022-08-05] MEDS: Vancomycin HCl 125 MG/5 ML (BATCHED) UDCUP PO SCH ×4 (01:07→18:12)
[2022-08-05] MEDS: Aspirin 81 mg Enteric Coated Tablet PO SCH (09:39)
[2022-08-05] MEDS: Famotidine/PF 20 mg/2ml Vial SLOW IVP SCH ×2 (09:40→20:22)
[2022-08-05] MEDS: Senokot S 8.6-50 MG TAB PO SCH ×2 (09:40→20:23)
[2022-08-05] MEDS: Polyethylene Glycol 3350 17 GM Packet PER TUBE SCH (09:40)
[2022-08-05] MEDS: Dexamethasone 4 mg/ml Vial SLOW IVP SCH (09:40)
[2022-08-05 10:44] LABS: #Basophils 0.1 thou/uL (0.0-0.2); #Eosinphils 0.6 thou/uL (0.0-0.7); #Lymphocytes 1.5 thou/uL (1.20-3.40); #Monocytes 0.7 thou/uL (0.11-0.59); #Neutrophils 7.6 thou/uL (1.40-6.50); %Basophils 0.9 % (0.0-1.0); %Eosinophils 5.3 % (0.0-10.0); %Lymphocytes 14.7 % (21.0-51.0); %Monocytes 6.7 % (0.0-10.0); %Neutrophils 72.4 % (42.0-75.0); Hemoglobin 8.8 g/dL (12.0-16.0); Mean Corpuscular HGB CONC 29.6 g/dL (32.0-36.0); Mean Corpuscular Hemoglobin 24.7 pg (27.0-31.0); Mean Corpuscular Volume 83.3 fl (78.0-98.0); Mean Platelet Volume 11.9 fL (7.4-10.4); Platelet Count 219 10x3/uL (130-400); RBC Distribution Width 20.3 % (11.5-14.5); Red Blood Cell (RBC) Count 3.58 mill/uL (4.20-5.40); White Blood Cell (WBC) Count 10.5 10x3/uL (4.8-10.8)
[2022-08-05 10:53] LABS: ALT (SGPT) 23 U/L (8-55); AST (SGOT) 34 U/L (5-34); Albumin 3.1 g/dL (3.4-4.8); Alkaline Phosphatase 116 U/L (40-110); Anion Gap 12 mmol/L (10-20); BUN (Urea Nitrogen) 12 mg/dL (9.8-20.1); Bilirubin, Total 0.6 mg/dL (0.2-1.2); Calc. Creatinine Clearance 93 mL/min (70-130); Calcium 8.5 mg/dL (7.8-10.44); Carbon Dioxide 23 mmol/L (23-31); Chloride 105 mmol/L (98-107); Estimated GFR 94; Globulin 2.6 g/dL (2.4-3.5); Glucose 128 mg/dL (80-115); Magnesium 1.7 mg/dL (1.6-2.6); Phosphorus 2.5 mg/dL (2.3-4.7); Potassium 3.8 mmol/L (3.5-5.1); Protein, Total 5.7 g/dL (5.8-8.1); Sodium 136 mmol/L (136-145)
[2022-08-05] MEDS: Nitroglycerin 0.4 MG TAB (25 Tab Bottle) SL PRN (12:12)
[2022-08-05] MEDS ORDERED: Magnesium 2 GM/50 ML(in water) 2 GM in Premix Bag 1 BAG IVPB SCH (12:15)
[2022-08-05 14:10] LABS: Hemoglobin 8.9 g/dL (12.0-16.0); Platelet Count 218 10x3/uL (130-400)
[2022-08-05] MEDS: Enoxaparin Sodium 40 MG/0.4 ML SYRINGE SC SCH (20:21)
[2022-08-05] MEDS: Insulin Glargine 30 UNITS/0.3 ML VIAL SC SCH (20:26)
[2022-08-06] MEDS: Vancomycin HCl 125 MG/5 ML (BATCHED) UDCUP PO SCH ×4 (02:25→18:03)
[2022-08-06 03:29] LABS: #Basophils 0.1 thou/uL (0.0-0.2); #Eosinphils 0.3 thou/uL (0.0-0.7); #Lymphocytes 1.1 thou/uL (1.20-3.40); #Monocytes 0.7 thou/uL (0.11-0.59); #Neutrophils 7.5 thou/uL (1.40-6.50); %Basophils 0.8 % (0.0-1.0); %Eosinophils 3.6 % (0.0-10.0); %Lymphocytes 11.6 % (21.0-51.0); %Monocytes 7.1 % (0.0-10.0); %Neutrophils 76.9 % (42.0-75.0); Hemoglobin 8.6 g/dL (12.0-16.0); Mean Corpuscular HGB CONC 29.5 g/dL (32.0-36.0); Mean Corpuscular Hemoglobin 24.2 pg (27.0-31.0); Mean Corpuscular Volume 82.1 fl (78.0-98.0); Mean Platelet Volume 11.4 fL (7.4-10.4); Platelet Count 222 10x3/uL (130-400); RBC Distribution Width 20.3 % (11.5-14.5); Red Blood Cell (RBC) Count 3.57 mill/uL (4.20-5.40); White Blood Cell (WBC) Count 9.8 10x3/uL (4.8-10.8)
[2022-08-06 03:59] LABS: ALT (SGPT) 22 U/L (8-55); AST (SGOT) 22 U/L (5-34); Albumin 3.2 g/dL (3.4-4.8); Alkaline Phosphatase 112 U/L (40-110); Anion Gap 12 mmol/L (10-20); BUN (Urea Nitrogen) 12 mg/dL (9.8-20.1); Bilirubin, Total 0.6 mg/dL (0.2-1.2); Calc. Creatinine Clearance 97 mL/min (70-130); Calcium 8.3 mg/dL (7.8-10.44); Carbon Dioxide 24 mmol/L (23-31); Chloride 106 mmol/L (98-107); Estimated GFR 95; Globulin 2.3 g/dL (2.4-3.5); Glucose 87 mg/dL (80-115); Magnesium 2.1 mg/dL (1.6-2.6); Potassium 4.1 mmol/L (3.5-5.1); Protein, Total 5.5 g/dL (5.8-8.1); Sodium 138 mmol/L (136-145)
[2022-08-06] MEDS: Dexamethasone 4 mg/ml Vial SLOW IVP SCH (10:00)
[2022-08-06] MEDS: Aspirin 81 mg Enteric Coated Tablet PO SCH (10:00)
[2022-08-06] MEDS: Famotidine/PF 20 mg/2ml Vial SLOW IVP SCH (10:00)
[2022-08-06] MEDS: Polyethylene Glycol 3350 17 GM Packet PER TUBE SCH (10:01)
[2022-08-06] MEDS: Senokot S 8.6-50 MG TAB PO SCH ×2 (10:02→21:38)
[2022-08-06] MEDS ORDERED: Cyclobenzaprine 10 MG TAB PO PRN (14:17)
[2022-08-06] MEDS: Insulin Glargine 30 UNITS/0.3 ML VIAL SC SCH (21:37)
[2022-08-06] MEDS: Famotidine 20 MG TAB PO SCH (21:37)
[2022-08-06] MEDS: Rosuvastatin 20 MG TAB PO SCH (21:37)
[2022-08-07] MEDS: Vancomycin HCl 125 MG/5 ML (BATCHED) UDCUP PO SCH ×5 (00:47→22:09)
[2022-08-07 04:23] LABS: #Eosinphils 0.3 thou/uL (0.0-0.7); #Lymphocytes 1.2 thou/uL (1.20-3.40); #Monocytes 0.6 thou/uL (0.11-0.59); #Neutrophils 6.9 thou/uL (1.40-6.50); %Basophils 0.2 % (0.0-1.0); %Eosinophils 3.4 % (0.0-10.0); %Monocytes 7.1 % (0.0-10.0); %Neutrophils 76.3 % (42.0-75.0); Hemoglobin 8.7 g/dL (12.0-16.0); Mean Platelet Volume 11.2 fL (7.4-10.4); Platelet Count 226 10x3/uL (130-400); RBC Distribution Width 19.7 % (11.5-14.5); Red Blood Cell (RBC) Count 3.36 mill/uL (4.20-5.40)
[2022-08-07 04:36] LABS: ALT (SGPT) 17 U/L (8-55); AST (SGOT) 14 U/L (5-34); Albumin 3.1 g/dL (3.4-4.8); Alkaline Phosphatase 104 U/L (40-110); Anion Gap 14 mmol/L (10-20); BUN (Urea Nitrogen) 11 mg/dL (9.8-20.1); Bilirubin, Total 0.6 mg/dL (0.2-1.2); Calc. Creatinine Clearance 95 mL/min (70-130); Calcium 8.2 mg/dL (7.8-10.44); Carbon Dioxide 19 mmol/L (23-31); Chloride 107 mmol/L (98-107); Estimated GFR 95; Globulin 2.4 g/dL (2.4-3.5); Glucose 112 mg/dL (80-115); Potassium 3.7 mmol/L (3.5-5.1); Protein, Total 5.5 g/dL (5.8-8.1); Sodium 136 mmol/L (136-145)
[2022-08-07] MEDS ORDERED: Aspirin Chewable 81 MG TAB PO SCH (09:00)
[2022-08-07] MEDS: Famotidine 20 MG TAB PO SCH ×2 (09:37→20:37)
[2022-08-07] MEDS: Scopolamine 1.5 mg/72 hour Patch TD SCH (09:39)
[2022-08-07] MEDS: Senokot S 8.6-50 MG TAB PO SCH ×2 (09:39→20:38)
[2022-08-07] MEDS: Ezetimibe 10 MG TAB PO SCH (09:40)
[2022-08-07] MEDS: Aspirin 81 mg Enteric Coated Tablet PO SCH (09:40)
[2022-08-07] MEDS: Dexamethasone 4 mg/ml Vial SLOW IVP SCH (09:41)
[2022-08-07] MEDS: Polyethylene Glycol 3350 17 GM Packet PER TUBE SCH (09:42)
[2022-08-07] MEDS: Prasugrel 10 MG TAB PO SCH (09:42)
[2022-08-07] MEDS ORDERED: Dexamethasone 1 MG TAB PO SCH (11:30)
[2022-08-07] MEDS: Acetaminophen 325 MG TAB PO PRN (12:32)
[2022-08-07 14:27] LABS: Hemoglobin 8.2 g/dL (12.0-16.0); Platelet Count 184 10x3/uL (130-400)
[2022-08-07] MEDS: Rosuvastatin 20 MG TAB PO SCH (20:37)
[2022-08-07] MEDS: Insulin Glargine 30 UNITS/0.3 ML VIAL SC SCH (20:38)
[2022-08-08] MEDS: Vancomycin HCl 125 MG/5 ML (BATCHED) UDCUP PO SCH ×4 (04:40→23:13)
[2022-08-08 06:29] LABS: ALT (SGPT) 15 U/L (8-55); AST (SGOT) 10 U/L (5-34); Albumin 3.1 g/dL (3.4-4.8); Alkaline Phosphatase 97 U/L (40-110); Anion Gap 10 mmol/L (10-20); BUN (Urea Nitrogen) 10 mg/dL (9.8-20.1); Bilirubin, Total 0.7 mg/dL (0.2-1.2); Calc. Creatinine Clearance 100 mL/min (70-130); Calcium 8.4 mg/dL (7.8-10.44); Carbon Dioxide 25 mmol/L (23-31); Chloride 107 mmol/L (98-107); Estimated GFR 96; Globulin 2.3 g/dL (2.4-3.5); Glucose 106 mg/dL (80-115); Potassium 3.7 mmol/L (3.5-5.1); Protein, Total 5.4 g/dL (5.8-8.1); Sodium 138 mmol/L (136-145)
[2022-08-08 06:32] LABS: #Eosinphils 0.4 thou/uL (0.0-0.7); #Monocytes 0.5 thou/uL (0.11-0.59); #Neutrophils 5.1 thou/uL (1.40-6.50); %Basophils 0.7 % (0.0-1.0); %Eosinophils 5.2 % (0.0-10.0); %Lymphocytes 13.7 % (21.0-51.0); %Monocytes 6.8 % (0.0-10.0); %Neutrophils 73.6 % (42.0-75.0); Hemoglobin 8.4 g/dL (12.0-16.0); Mean Corpuscular HGB CONC 29.9 g/dL (32.0-36.0); Mean Corpuscular Hemoglobin 24.6 pg (27.0-31.0); Mean Corpuscular Volume 82.3 fl (78.0-98.0); Mean Platelet Volume 11.1 fL (7.4-10.4); Platelet Count 219 10x3/uL (130-400); RBC Distribution Width 20.1 % (11.5-14.5); Red Blood Cell (RBC) Count 3.41 mill/uL (4.20-5.40); White Blood Cell (WBC) Count 6.9 10x3/uL (4.8-10.8)
[2022-08-08] MEDS: Ezetimibe 10 MG TAB PO SCH (07:52)
[2022-08-08] MEDS: Dexamethasone 1 MG TAB PO SCH (07:52)
[2022-08-08] MEDS: Polyethylene Glycol 3350 17 GM Packet PER TUBE SCH (07:53)
[2022-08-08] MEDS: Aspirin 81 mg Enteric Coated Tablet PO SCH (07:53)
[2022-08-08] MEDS: Famotidine 20 MG TAB PO SCH ×2 (07:53→20:44)
[2022-08-08] MEDS: Senokot S 8.6-50 MG TAB PO SCH ×2 (07:53→20:39)
[2022-08-08] MEDS: Prasugrel 10 MG TAB PO SCH (07:59)
[2022-08-08 08:32] LABS: Anisocytosis MODERATE=16-30 cells (100X) (0-5/hpf); Hypochromia SLIGHT = 6-15 cells (100X) (0-5/hpf); MDiff Complete? YES; Platelet Morphology Comment Appears Adequate; Polychromasia SLIGHT = 2-3 cells (100X) (0-2/hpf)
[2022-08-08 12:18] VITALS: BMI 30.3
[2022-08-08] MEDS ORDERED: Furosemide 20 MG TAB PO SCH (12:45)
[2022-08-08] MEDS: Insulin Glargine 30 UNITS/0.3 ML VIAL SC SCH (20:44)
[2022-08-08] MEDS: Rosuvastatin 20 MG TAB PO SCH (20:44)
[2022-08-09 00:05] VITALS: BP 138/75
[2022-08-09 03:52] LABS: #Basophils 0.1 thou/uL (0.0-0.2); #Eosinphils 0.5 thou/uL (0.0-0.7); #Lymphocytes 1.2 thou/uL (1.20-3.40); #Monocytes 0.6 thou/uL (0.11-0.59); #Neutrophils 5.2 thou/uL (1.40-6.50); %Basophils 0.9 % (0.0-1.0); %Eosinophils 6.3 % (0.0-10.0); %Lymphocytes 16.4 % (21.0-51.0); %Monocytes 7.4 % (0.0-10.0); %Neutrophils 69.1 % (42.0-75.0); Hemoglobin 8.7 g/dL (12.0-16.0); Mean Corpuscular HGB CONC 29.9 g/dL (32.0-36.0); Mean Corpuscular Hemoglobin 24.3 pg (27.0-31.0); Mean Corpuscular Volume 81.2 fl (78.0-98.0); Mean Platelet Volume 11.1 fL (7.4-10.4); Platelet Count 209 10x3/uL (130-400); Red Blood Cell (RBC) Count 3.58 mill/uL (4.20-5.40); White Blood Cell (WBC) Count 7.6 10x3/uL (4.8-10.8)
[2022-08-09 04:08] LABS: ALT (SGPT) 13 U/L (8-55); AST (SGOT) 10 U/L (5-34); Alkaline Phosphatase 95 U/L (40-110); Anion Gap 12 mmol/L (10-20); BUN (Urea Nitrogen) 10 mg/dL (9.8-20.1); Bilirubin, Total 0.5 mg/dL (0.2-1.2); Calc. Creatinine Clearance 97 mL/min (70-130); Calcium 8.2 mg/dL (7.8-10.44); Carbon Dioxide 21 mmol/L (23-31); Chloride 108 mmol/L (98-107); Estimated GFR 95; Globulin 2.4 g/dL (2.4-3.5); Glucose 112 mg/dL (80-115); Potassium 3.8 mmol/L (3.5-5.1); Protein, Total 5.4 g/dL (5.8-8.1); Sodium 137 mmol/L (136-145)
[2022-08-09] MEDS: Vancomycin HCl 125 MG/5 ML (BATCHED) UDCUP PO SCH (05:45)
[2022-08-09] MEDS: Prasugrel 10 MG TAB PO SCH (09:46)
[2022-08-09] MEDS: Dexamethasone 1 MG TAB PO SCH (09:46)
[2022-08-09] MEDS: Famotidine 20 MG TAB PO SCH (09:46)
[2022-08-09] MEDS: Aspirin 81 mg Enteric Coated Tablet PO SCH (09:47)
[2022-08-09] MEDS: Ezetimibe 10 MG TAB PO SCH (09:48)
[2022-08-09] MEDS: Polyethylene Glycol 3350 17 GM Packet PER TUBE SCH (09:49)
[2022-08-09] MEDS: Senokot S 8.6-50 MG TAB PO SCH (09:50)
[2022-08-09 12:51] VITALS: TEMP 98
== END 2022-08-09 16:15 | DRG 870 ==
LOC: ERS 15:59 → CCU 18:57 → IMCU/EMU 07-27 18:40
PROVIDERS: ADMIT Hospitalist; ATTEND Hospitalist
PROC: 5A1955Z Respiratory Ventilation, Greater than 96 Consecutive Hours (ICD-10-PCS; principal; 2022-07-20)
PROC: 3E04329 Introduction of Other Anti-infective into Central Vein, Percutaneous Approach (ICD-10-PCS; 2022-07-20)
PROC: 05HY33Z Insertion of Infusion Device into Upper Vein, Percutaneous Approach (ICD-10-PCS; 2022-07-20)
PROC: 3E043XZ Introduction of Vasopressor into Central Vein, Percutaneous Approach (ICD-10-PCS; 2022-07-20)
PROC: 0BH17EZ Insertion of Endotracheal Airway into Trachea, Via Natural or Artificial Opening (ICD-10-PCS; 2022-07-20)
PROC: 0D9670Z Drainage of Stomach with Drainage Device, Via Natural or Artificial Opening (ICD-10-PCS; 2022-07-20)
PROC: 3E0G76Z Introduction of Nutritional Substance into Upper GI, Via Natural or Artificial Opening (ICD-10-PCS; 2022-07-23)
PROC: 5A0955A Assistance with Respiratory Ventilation, Greater than 96 Consecutive Hours, High Flow/Velocity Cannula (ICD-10-PCS; 2022-07-25)
DX: A41.89 Other specified sepsis (principal); U07.1 COVID-19; J12.82 Pneumonia due to coronavirus disease 2019; G93.41 Metabolic encephalopathy; R65.21 Severe sepsis with septic shock; J80 Acute respiratory distress syndrome; I50.43 Acute on chronic combined systolic (congestive) and diastolic (congestive) heart failure; E87.1 Hypo-osmolality and hyponatremia; J44.1 Chronic obstructive pulmonary disease with (acute) exacerbation; J44.0 Chronic obstructive pulmonary disease with (acute) lower respiratory infection; E87.0 Hyperosmolality and hypernatremia; I47.1 Supraventricular tachycardia; A04.72 Enterocolitis due to Clostridium difficile, not specified as recurrent; Z66 Do not resuscitate; I11.0 Hypertensive heart disease with heart failure; I25.10 Atherosclerotic heart disease of native coronary artery without angina pectoris; G25.81 Restless legs syndrome; D63.8 Anemia in other chronic diseases classified elsewhere; M06.9 Rheumatoid arthritis, unspecified; E83.42 Hypomagnesemia; E11.649 Type 2 diabetes mellitus with hypoglycemia without coma; I25.5 Ischemic cardiomyopathy; E11.51 Type 2 diabetes mellitus with diabetic peripheral angiopathy without gangrene; E11.65 Type 2 diabetes mellitus with hyperglycemia; R13.12 Dysphagia, oropharyngeal phase; Z78.1 Physical restraint status; Z28.21 Immunization not carried out because of patient refusal; Z95.1 Presence of aortocoronary bypass graft; Z88.5 Allergy status to narcotic agent; Z90.49 Acquired absence of other specified parts of digestive tract; Z87.891 Personal history of nicotine dependence; Z79.899 Other long term (current) drug therapy; Z79.84 Long term (current) use of oral hypoglycemic drugs; Z79.52 Long term (current) use of systemic steroids; Z79.82 Long term (current) use of aspirin; Z79.02 Long term (current) use of antithrombotics/antiplatelets
CPT/HCPCS: 31500; 36415; 36416; 36556; 36600; 51702; 71045; 74018; 80048; 80053; 80076; 80202; 81003; 81015; 82553; 82805; 83036; 83605; 83630; 83735; 83880; 84100; 84145; 84443; 84484; 85014; 85018; 85025; 85027; 85049; 85730; 86140; 87086; 87324; 87449; 87493; 87505; 93005; 93010; 93306; 94002; 94003; 94660; 96365; 96366; C9113; J0282; J1100; J1644; J1650; J1720; J1815; J1940; J2250; J2270; J2405; J2543; J2704; J3010; J3370; J3475; J3480; J3490; J7050; J7070; J8540; S0028

== ENCOUNTER 2022-08-15 18:58 | Inpatient (IN) | payer OTHER, MEDICAID ==
[2022-08-15 20:34] VITALS: BMI 27.6
[2022-08-15] MEDS: cefTRIAXone\\ROCEPHIN 1 GM in Sodium Chloride 0.9% 100 ML IVPB SCH (21:43)
[2022-08-15] MEDS ORDERED: Ondansetron PF 4 MG/2 ML Vial IVP PRN (21:50)
[2022-08-15] MEDS ORDERED: Acetaminophen 650 MG Suppository PR PRN (21:50)
[2022-08-15] MEDS ORDERED: Ondansetron ODT 4 MG TAB PO PRN (21:50)
[2022-08-16] MEDS: Acetaminophen 325 MG TAB PO PRN (00:42)
[2022-08-16 04:57] LABS: Anion Gap 10 mmol/L (10-20); BUN (Urea Nitrogen) 8 mg/dL (9.8-20.1); Calc. Creatinine Clearance 90 mL/min (70-130); Calcium 7.8 mg/dL (7.8-10.44); Carbon Dioxide 24 mmol/L (23-31); Chloride 104 mmol/L (98-107); Estimated GFR 94; Glucose 107 mg/dL (80-115); Sodium 135 mmol/L (136-145)
[2022-08-16 05:31] LABS: #Eosinphils 0.4 thou/uL (0.0-0.7); #Monocytes 0.8 thou/uL (0.11-0.59); %Basophils 0.8 % (0.0-1.0); %Eosinophils 6.9 % (0.0-10.0); %Monocytes 14.5 % (0.0-10.0); %Neutrophils 57.8 % (42.0-75.0); Hemoglobin 7.8 g/dL (12.0-16.0); Mean Corpuscular Hemoglobin 25.2 pg (27.0-31.0); Mean Corpuscular Volume 78.7 fl (78.0-98.0); Mean Platelet Volume 10.6 fL (7.4-10.4); Platelet Count 96 10x3/uL (130-400); Platelet Morphology Comment Appears Decreased; RBC Distribution Width 18.9 % (11.5-14.5); Red Blood Cell (RBC) Count 3.09 mill/uL (4.20-5.40); White Blood Cell (WBC) Count 5.2 10x3/uL (4.8-10.8)
[2022-08-16] MEDS ORDERED: Electrolyte Replacement Protocol 1 EACH FS SCH (07:00)
[2022-08-16] MEDS ORDERED: Potassium Chloride 20 MEQ TAB PO SCH ×2 (07:15→14:00)
[2022-08-16 07:43] LABS: Iron 15 ug/dL (50-170); Iron Binding Capacity, Total 243 mcg/dL (265-497)
[2022-08-16] MEDS ORDERED: Iron, Sodium Ferric Gluconate 250 MG in Sodium Chloride 0.9% 250 ML 250 ML IVPB SCH (11:00)
[2022-08-16] MEDS: Enoxaparin Sodium 40 MG/0.4 ML SYRINGE SC SCH (11:37)
[2022-08-16] MEDS ORDERED: Empagliflozin 10 MG TAB PO SCH (14:00)
[2022-08-16] MEDS ORDERED: Furosemide 20 MG/2 ML VIAL SLOW IVP SCH (14:00)
[2022-08-16] MEDS ORDERED: Aspirin 81 mg Enteric Coated Tablet PO SCH (14:00)
[2022-08-16] MEDS: Budesonide 0.5 MG/2 ML NEB NEB SCH (19:26)
[2022-08-16] MEDS: cefTRIAXone\\ROCEPHIN 1 GM in Sodium Chloride 0.9% 100 ML IVPB SCH (22:21)
[2022-08-17] MEDS: Budesonide 0.5 MG/2 ML NEB NEB SCH ×2 (06:53→18:31)
[2022-08-17] MEDS: Spironolactone 25 MG TAB PO SCH (10:54)
[2022-08-17] MEDS: Empagliflozin 25 MG TAB PO SCH (10:54)
[2022-08-17] MEDS: Enoxaparin Sodium 40 MG/0.4 ML SYRINGE SC SCH (10:55)
[2022-08-17] MEDS: Potassium Chloride 20 MEQ TAB PO SCH (10:55)
[2022-08-17] MEDS: Furosemide 20 MG/2 ML VIAL SLOW IVP SCH (10:55)
[2022-08-17] MEDS: Aspirin 81 mg Enteric Coated Tablet PO SCH (10:55)
[2022-08-17] MEDS: Acetaminophen 325 MG TAB PO PRN (11:21)
[2022-08-17] MEDS: predniSONE 5 MG TAB PO SCH (16:32)
[2022-08-17 18:04] LABS: ALT (SGPT) 10 U/L (8-55); AST (SGOT) 9 U/L (5-34); Alkaline Phosphatase 104 U/L (40-110); Anion Gap 14 mmol/L (10-20); BUN (Urea Nitrogen) 7 mg/dL (9.8-20.1); Bilirubin, Total 0.4 mg/dL (0.2-1.2); Calc. Creatinine Clearance 86 mL/min (70-130); Calcium 8.4 mg/dL (7.8-10.44); Carbon Dioxide 22 mmol/L (23-31); Chloride 102 mmol/L (98-107); Estimated GFR 94; Globulin 2.9 g/dL (2.4-3.5); Glucose 106 mg/dL (80-115); Magnesium 1.6 mg/dL (1.6-2.6); Phosphorus 3.1 mg/dL (2.3-4.7); Protein, Total 5.9 g/dL (5.8-8.1); Sodium 134 mmol/L (136-145)
[2022-08-17] MEDS: Hydroxychloroquine Sulfate 200 MG TAB PO SCH (22:13)
[2022-08-17] MEDS: Saccharomyces boulardii 250 MG CAP PO SCH (22:14)
[2022-08-17] MEDS: Rosuvastatin 20 MG TAB PO SCH (22:14)
[2022-08-17] MEDS: cefTRIAXone\\ROCEPHIN 1 GM in Sodium Chloride 0.9% 100 ML IVPB SCH (22:19)
[2022-08-18 04:26] LABS: #Eosinphils 0.1 thou/uL (0.0-0.7); #Lymphocytes 1.5 thou/uL (1.20-3.40); #Monocytes 0.5 thou/uL (0.11-0.59); #Neutrophils 3.7 thou/uL (1.40-6.50); %Basophils 0.7 % (0.0-1.0); %Eosinophils 2.1 % (0.0-10.0); %Lymphocytes 25.3 % (21.0-51.0); %Monocytes 7.9 % (0.0-10.0); %Neutrophils 63.9 % (42.0-75.0); Hemoglobin 8.1 g/dL (12.0-16.0); Mean Corpuscular HGB CONC 31.2 g/dL (32.0-36.0); Mean Corpuscular Hemoglobin 24.8 pg (27.0-31.0); Mean Corpuscular Volume 79.5 fl (78.0-98.0); Mean Platelet Volume 12.2 fL (7.4-10.4); Platelet Count 136 10x3/uL (130-400); RBC Distribution Width 19.3 % (11.5-14.5); Red Blood Cell (RBC) Count 3.28 mill/uL (4.20-5.40); White Blood Cell (WBC) Count 5.8 10x3/uL (4.8-10.8)
[2022-08-18 04:43] LABS: Anion Gap 12 mmol/L (10-20); BUN (Urea Nitrogen) 6 mg/dL (9.8-20.1); Calc. Creatinine Clearance 94 mL/min (70-130); Calcium 8.1 mg/dL (7.8-10.44); Carbon Dioxide 24 mmol/L (23-31); Chloride 104 mmol/L (98-107); Estimated GFR 96; Glucose 123 mg/dL (80-115); Magnesium 1.6 mg/dL (1.6-2.6); Sodium 136 mmol/L (136-145)
[2022-08-18] MEDS: Budesonide 0.5 MG/2 ML NEB NEB SCH ×2 (07:55→18:28)
[2022-08-18] MEDS ORDERED: Magnesium 2 GM/50 ML(in water) 2 GM in Premix Bag 1 BAG IVPB SCH (08:30)
[2022-08-18] MEDS: Hydroxychloroquine Sulfate 200 MG TAB PO SCH ×2 (09:53→20:46)
[2022-08-18] MEDS: Spironolactone 25 MG TAB PO SCH (09:54)
[2022-08-18] MEDS: Enoxaparin Sodium 40 MG/0.4 ML SYRINGE SC SCH (09:54)
[2022-08-18] MEDS: Prasugrel 10 MG TAB PO SCH (09:54)
[2022-08-18] MEDS: predniSONE 5 MG TAB PO SCH ×2 (09:54→18:04)
[2022-08-18] MEDS: Empagliflozin 25 MG TAB PO SCH (09:54)
[2022-08-18] MEDS: Furosemide 20 MG/2 ML VIAL SLOW IVP SCH (09:54)
[2022-08-18] MEDS: Ezetimibe 10 MG TAB PO SCH (09:54)
[2022-08-18] MEDS: Potassium Chloride 20 MEQ TAB PO SCH (09:55)
[2022-08-18] MEDS: Aspirin 81 mg Enteric Coated Tablet PO SCH (09:55)
[2022-08-18] MEDS: pyridOXINE 50 MG (B6) TAB PO SCH (20:46)
[2022-08-18] MEDS: Cyanocobalamin (Vitamin B-12) 1,000 MCG TAB PO SCH (20:46)
[2022-08-18] MEDS: Multivit, Therapeutic 1 TAB PO SCH (20:46)
[2022-08-18] MEDS: Saccharomyces boulardii 250 MG CAP PO SCH (20:46)
[2022-08-18] MEDS: Rosuvastatin 20 MG TAB PO SCH (20:46)
[2022-08-18] MEDS: Folic Acid 1 MG TAB PO SCH (20:46)
[2022-08-18] MEDS: cefTRIAXone\\ROCEPHIN 1 GM in Sodium Chloride 0.9% 100 ML IVPB SCH (20:47)
[2022-08-19 05:04] LABS: #Basophils 0.1 thou/uL (0.0-0.2); #Eosinphils 0.1 thou/uL (0.0-0.7); #Lymphocytes 1.7 thou/uL (1.20-3.40); #Monocytes 0.6 thou/uL (0.11-0.59); #Neutrophils 4.7 thou/uL (1.40-6.50); %Basophils 0.9 % (0.0-1.0); %Eosinophils 1.8 % (0.0-10.0); %Lymphocytes 24.3 % (21.0-51.0); %Monocytes 8.2 % (0.0-10.0); %Neutrophils 64.8 % (42.0-75.0); Hemoglobin 8.1 g/dL (12.0-16.0); Mean Corpuscular HGB CONC 31.5 g/dL (32.0-36.0); Mean Corpuscular Hemoglobin 25.3 pg (27.0-31.0); Mean Corpuscular Volume 80.4 fl (78.0-98.0); Mean Platelet Volume 10.7 fL (7.4-10.4); Platelet Count 171 10x3/uL (130-400); RBC Distribution Width 19.8 % (11.5-14.5); White Blood Cell (WBC) Count 7.2 10x3/uL (4.8-10.8)
[2022-08-19 05:26] LABS: Anion Gap 11 mmol/L (10-20); BUN (Urea Nitrogen) 8 mg/dL (9.8-20.1); Calc. Creatinine Clearance 80 mL/min (70-130); Calcium 8.4 mg/dL (7.8-10.44); Carbon Dioxide 26 mmol/L (23-31); Cardiac Risk 3.1 (Less than 4.5); Chloride 102 mmol/L (98-107); Cholesterol 112 mg/dl (< 200 Desired); Estimated GFR 89; Glucose 118 mg/dL (80-115); HDL Cholesterol 36 mg/dL (>60 Neg Risk); LDL Cholesterol, Calculated 53 mg/dL; Magnesium 2.1 mg/dL (1.6-2.6); Potassium 4.8 mmol/L (3.5-5.1); Sodium 134 mmol/L (136-145); Triglycerides 116 mg/dL (Less than 150)
[2022-08-19] MEDS: Ezetimibe 10 MG TAB PO SCH (09:09)
[2022-08-19] MEDS: Hydroxychloroquine Sulfate 200 MG TAB PO SCH ×2 (09:09→20:31)
[2022-08-19] MEDS: Potassium Chloride 20 MEQ TAB PO SCH (09:09)
[2022-08-19] MEDS: Prasugrel 10 MG TAB PO SCH (09:09)
[2022-08-19] MEDS: Spironolactone 25 MG TAB PO SCH (09:09)
[2022-08-19] MEDS: Empagliflozin 25 MG TAB PO SCH (09:09)
[2022-08-19] MEDS: Aspirin 81 mg Enteric Coated Tablet PO SCH (09:09)
[2022-08-19] MEDS: predniSONE 5 MG TAB PO SCH ×2 (09:10→18:35)
[2022-08-19] MEDS: Budesonide 0.5 MG/2 ML NEB NEB SCH ×2 (09:10→18:34)
[2022-08-19] MEDS: Furosemide 20 MG/2 ML VIAL SLOW IVP SCH (09:10)
[2022-08-19] MEDS: Enoxaparin Sodium 40 MG/0.4 ML SYRINGE SC SCH (09:10)
[2022-08-19] MEDS: Rosuvastatin 20 MG TAB PO SCH (20:31)
[2022-08-19] MEDS: pyridOXINE 50 MG (B6) TAB PO SCH (20:31)
[2022-08-19] MEDS: Cyanocobalamin (Vitamin B-12) 1,000 MCG TAB PO SCH (20:32)
[2022-08-19] MEDS: Multivit, Therapeutic 1 TAB PO SCH (20:32)
[2022-08-19] MEDS: Folic Acid 1 MG TAB PO SCH (20:32)
[2022-08-19] MEDS: cefTRIAXone\\ROCEPHIN 1 GM in Sodium Chloride 0.9% 100 ML IVPB SCH (20:32)
[2022-08-19] MEDS: Triple Antibiotic Oint 1 GM Packet TOP SCH (20:32)
[2022-08-20] MEDS: Budesonide 0.5 MG/2 ML NEB NEB SCH ×2 (06:59→18:47)
[2022-08-20] MEDS: Aspirin 81 mg Enteric Coated Tablet PO SCH (09:29)
[2022-08-20] MEDS: predniSONE 5 MG TAB PO SCH ×2 (09:29→17:21)
[2022-08-20] MEDS: Spironolactone 25 MG TAB PO SCH (09:29)
[2022-08-20] MEDS: Enoxaparin Sodium 40 MG/0.4 ML SYRINGE SC SCH (09:30)
[2022-08-20] MEDS: Empagliflozin 25 MG TAB PO SCH (09:30)
[2022-08-20] MEDS: Ezetimibe 10 MG TAB PO SCH (09:30)
[2022-08-20] MEDS: Hydroxychloroquine Sulfate 200 MG TAB PO SCH ×2 (09:31→20:29)
[2022-08-20] MEDS: Prasugrel 10 MG TAB PO SCH (09:31)
[2022-08-20] MEDS: Triple Antibiotic Oint 1 GM Packet TOP SCH ×3 (09:31→20:29)
[2022-08-20] MEDS: Furosemide 20 MG/2 ML VIAL SLOW IVP SCH (09:32)
[2022-08-20] MEDS: Multivit, Therapeutic 1 TAB PO SCH (20:29)
[2022-08-20] MEDS: Cyanocobalamin (Vitamin B-12) 1,000 MCG TAB PO SCH (20:29)
[2022-08-20] MEDS: pyridOXINE 50 MG (B6) TAB PO SCH (20:29)
[2022-08-20] MEDS: cefTRIAXone\\ROCEPHIN 1 GM in Sodium Chloride 0.9% 100 ML IVPB SCH (20:29)
[2022-08-20] MEDS: Folic Acid 1 MG TAB PO SCH (20:29)
[2022-08-20] MEDS: Rosuvastatin 20 MG TAB PO SCH (20:35)
[2022-08-21] MEDS: Budesonide 0.5 MG/2 ML NEB NEB SCH (06:53)
[2022-08-21] MEDS: Ezetimibe 10 MG TAB PO SCH (09:22)
[2022-08-21] MEDS: Aspirin 81 mg Enteric Coated Tablet PO SCH (09:22)
[2022-08-21] MEDS: Furosemide 20 MG/2 ML VIAL SLOW IVP SCH (09:22)
[2022-08-21] MEDS: Spironolactone 25 MG TAB PO SCH (09:22)
[2022-08-21] MEDS: Prasugrel 10 MG TAB PO SCH (09:22)
[2022-08-21] MEDS: predniSONE 5 MG TAB PO SCH (09:22)
[2022-08-21] MEDS: Hydroxychloroquine Sulfate 200 MG TAB PO SCH (09:30)
[2022-08-21] MEDS ORDERED: Empagliflozin 10 MG TAB PO SCH (09:30)
[2022-08-21] MEDS: Empagliflozin 25 MG TAB PO SCH (09:34)
[2022-08-21] MEDS: Triple Antibiotic Oint 1 GM Packet TOP SCH (11:39)
[2022-08-21 16:14] VITALS: BP 109/59; TEMP 98
[2022-08-22] MEDS ORDERED: Empagliflozin 10 MG TAB PO SCH (09:00)
== END 2022-08-21 16:14 | DRG 291 ==
LOC: 2NO 19:40 → OBSVTOIN 08-16 17:05
PROVIDERS: ADMIT Family Medicine; ATTEND Internal Medicine
DX: I13.0 Hypertensive heart and chronic kidney disease with heart failure and stage 1 through stage 4 chronic kidney disease, or unspecified chronic kidney disease (principal); I50.23 Acute on chronic systolic (congestive) heart failure; J96.01 Acute respiratory failure with hypoxia; E87.1 Hypo-osmolality and hyponatremia; N39.0 Urinary tract infection, site not specified; Z20.822 Contact with and (suspected) exposure to COVID-19; D64.9 Anemia, unspecified; I25.10 Atherosclerotic heart disease of native coronary artery without angina pectoris; E78.5 Hyperlipidemia, unspecified; E11.9 Type 2 diabetes mellitus without complications; J44.9 Chronic obstructive pulmonary disease, unspecified; Z60.2 Problems related to living alone; M06.9 Rheumatoid arthritis, unspecified; R79.89 Other specified abnormal findings of blood chemistry; J84.10 Pulmonary fibrosis, unspecified; E87.6 Hypokalemia; E83.42 Hypomagnesemia; N28.89 Other specified disorders of kidney and ureter; N18.30 Chronic kidney disease, stage 3 unspecified; I25.5 Ischemic cardiomyopathy; E11.22 Type 2 diabetes mellitus with diabetic chronic kidney disease; G25.81 Restless legs syndrome; D63.1 Anemia in chronic kidney disease; R53.81 Other malaise; E66.9 Obesity, unspecified; Z87.01 Personal history of pneumonia (recurrent); Z86.16 Personal history of COVID-19; Z88.6 Allergy status to analgesic agent; Z95.1 Presence of aortocoronary bypass graft; Z79.4 Long term (current) use of insulin; Z88.5 Allergy status to narcotic agent; Z79.899 Other long term (current) drug therapy; Z79.82 Long term (current) use of aspirin; Z98.51 Tubal ligation status; Z87.891 Personal history of nicotine dependence; Z68.26 Body mass index [BMI] 26.0-26.9, adult
CPT/HCPCS: 36415; 36416; 71045; 80048; 80053; 80061; 82728; 83540; 83550; 83735; 83880; 84100; 85025; 93306; 94640; 96372; 96374; 96375; G0378; J0696; J1650; J1940; J2405; J2916; J3475; J3490; J7050; J7512; J7620; J7626; U0003; U0005

== ENCOUNTER 2022-09-08 15:46 | Inpatient (IN) | payer OTHER, MEDICAID ==
[~2022-09-08 15:46] MED LIST: Iopamidol-370 76% 500 ML 1 ML ONE
[2022-09-08 16:33] LABS: #Eosinphils 0.1 thou/uL (0.0-0.7); #Lymphocytes 1.2 thou/uL (1.20-3.40); #Monocytes 0.7 thou/uL (0.11-0.59); #Neutrophils 10.5 thou/uL (1.40-6.50); %Basophils 0.3 % (0.0-1.0); %Eosinophils 0.6 % (0.0-10.0); %Lymphocytes 9.3 % (21.0-51.0); %Monocytes 5.7 % (0.0-10.0); Hemoglobin 9.3 g/dL (12.0-16.0); Mean Corpuscular HGB CONC 33.5 g/dL (32.0-36.0); Mean Corpuscular Hemoglobin 26.3 pg (27.0-31.0); Mean Corpuscular Volume 78.6 fl (78.0-98.0); Mean Platelet Volume 9.8 fL (7.4-10.4); Platelet Count 273 10x3/uL (130-400); RBC Distribution Width 19.4 % (11.5-14.5); Red Blood Cell (RBC) Count 3.52 mill/uL (4.20-5.40); White Blood Cell (WBC) Count 12.5 10x3/uL (4.8-10.8)
[2022-09-08 16:54] LABS: ALT (SGPT) 12 U/L (8-55); AST (SGOT) 16 U/L (5-34); Albumin 3.5 g/dL (3.4-4.8); Alkaline Phosphatase 80 U/L (40-110); Anion Gap 13 mmol/L (10-20); BUN (Urea Nitrogen) 26 mg/dL (9.8-20.1); Bilirubin, Total 0.4 mg/dL (0.2-1.2); Calc. Creatinine Clearance 0 mL/min (70-130); Calcium 8.9 mg/dL (7.8-10.44); Carbon Dioxide 22 mmol/L (23-31); Chloride 107 mmol/L (98-107); Estimated GFR 59; Globulin 2.8 g/dL (2.4-3.5); Glucose 66 mg/dL (80-115); Lipase 25 U/L (8-78); Potassium 3.9 mmol/L (3.5-5.1); Protein, Total 6.3 g/dL (5.8-8.1); Sodium 138 mmol/L (136-145)
[2022-09-08 17:41] LABS: Bacteria/HPF 4+ HPF (None Seen); Bilirubin Negative (Negative); Blood, Urine Negative (Negative); Clarity Turbid (Clear); Glucose, Urine (Dipstick) Normal (Negative); Ketone, Urine Negative (Negative); Leukocyte 250 Leu/uL (Negative); Nitrite Negative (Negative); Protein, Urine (Dipstick) 30 mg/dL (Neg-Trace); RBC/HPF 0-3 HPF (0-3); Specific Gravity, Urine 1.012 (1.002-1.036); Squamous Epithelial 0-3 HPF (0-3); Urobilinogen Normal mg/dL (Less than 2); pH, Urine 5.5 (5.0-9.0)
[2022-09-08] MEDS ORDERED: metroNIDAZOLE 500 MG/100 ML BAG ONE (18:10)
[2022-09-08] MEDS ORDERED: Dextrose 50% Abboject 50 ML SYRINGE ONE (18:36)
[2022-09-08] MEDS ORDERED: Ondansetron PF 4 MG/2 ML Vial IVP PRN (18:44)
[2022-09-08] MEDS ORDERED: Sodium Chloride 0.9% 1,000 ML IV SCH (18:45)
[2022-09-08] MEDS ORDERED: Dextrose 50% Abboject 50 ML SYRINGE SLOW IVP PRN (18:46)
[2022-09-08] MEDS ORDERED: Dextrose 5% in Water 1,000 ML IV PRN (18:46)
[2022-09-08 21:16] VITALS: BMI 27.8
[2022-09-08] MEDS: Sodium Chloride 0.9% 1,000 ML IV SCH (21:45)
[2022-09-08] MEDS: Rosuvastatin 20 MG TAB PO SCH (21:46)
[2022-09-08] MEDS: cefTRIAXone\\ROCEPHIN 1 GM in Sodium Chloride 0.9% 100 ML IVPB SCH (21:46)
[2022-09-08] MEDS: Hydroxychloroquine Sulfate 200 MG TAB PO SCH (21:55)
[2022-09-09 08:02] LABS: #Basophils 0.1 thou/uL (0.0-0.2); #Eosinphils 0.1 thou/uL (0.0-0.7); #Neutrophils 7.7 thou/uL (1.40-6.50); %Basophils 0.7 % (0.0-1.0); %Eosinophils 1.3 % (0.0-10.0); %Lymphocytes 18.1 % (21.0-51.0); %Monocytes 9.4 % (0.0-10.0); %Neutrophils 70.6 % (42.0-75.0); Hemoglobin 8.7 g/dL (12.0-16.0); Mean Corpuscular Volume 80.6 fl (78.0-98.0); Mean Platelet Volume 9.8 fL (7.4-10.4); Platelet Count 230 10x3/uL (130-400); RBC Distribution Width 19.6 % (11.5-14.5); Red Blood Cell (RBC) Count 3.47 mill/uL (4.20-5.40); White Blood Cell (WBC) Count 10.9 10x3/uL (4.8-10.8)
[2022-09-09 08:21] LABS: Anion Gap 10 mmol/L (10-20); BUN (Urea Nitrogen) 15 mg/dL (9.8-20.1); Calc. Creatinine Clearance 77 mL/min (70-130); Calcium 8.2 mg/dL (7.8-10.44); Carbon Dioxide 20 mmol/L (23-31); Chloride 113 mmol/L (98-107); Estimated GFR 80; Glucose 87 mg/dL (80-115); Potassium 3.4 mmol/L (3.5-5.1); Sodium 140 mmol/L (136-145)
[2022-09-09] MEDS ORDERED: Bisacodyl 5 MG TAB PO PRN (09:31)
[2022-09-09] MEDS: Aspirin 81 mg Enteric Coated Tablet PO SCH (09:43)
[2022-09-09] MEDS: Leflunomide 10 mg Tablet PO SCH (09:44)
[2022-09-09] MEDS: Hydroxychloroquine Sulfate 200 MG TAB PO SCH ×2 (09:48→21:58)
[2022-09-09] MEDS ORDERED: HumaLOG 300 UNITS/3 ML VIAL SC PRN ×2 (10:55)
[2022-09-09] MEDS ORDERED: Dextrose 5% in Water 1,000 ML IV PRN (10:55)
[2022-09-09] MEDS ORDERED: Dextrose 50% Abboject 50 ML SYRINGE SLOW IVP PRN (10:55)
[2022-09-09] MEDS ORDERED: Bisacodyl 10 MG SUPP PR SCH (14:00)
[2022-09-09] MEDS: Sodium Chloride 0.9% 1,000 ML IV SCH (15:13)
[2022-09-09] MEDS: Rosuvastatin 20 MG TAB PO SCH (21:58)
[2022-09-09] MEDS: cefTRIAXone\\ROCEPHIN 1 GM in Sodium Chloride 0.9% 100 ML IVPB SCH (22:06)
[2022-09-10] MEDS: Leflunomide 10 mg Tablet PO SCH (10:26)
[2022-09-10] MEDS: Prasugrel 10 MG TAB PO SCH (10:27)
[2022-09-10] MEDS: Lisinopril 5 MG TAB PO SCH (10:27)
[2022-09-10] MEDS: Docusate 100 MG CAP PO SCH (10:27)
[2022-09-10] MEDS: Ezetimibe 10 MG TAB PO SCH (10:27)
[2022-09-10] MEDS: Aspirin 81 mg Enteric Coated Tablet PO SCH (10:27)
[2022-09-10] MEDS: Hydroxychloroquine Sulfate 200 MG TAB PO SCH ×2 (10:28→20:35)
[2022-09-10] MEDS: Sodium Chloride 0.9% 1,000 ML IV SCH (11:01)
[2022-09-10] MEDS: Acetaminophen 325 MG TAB PO PRN (13:45)
[2022-09-10] MEDS: Rosuvastatin 20 MG TAB PO SCH (20:35)
[2022-09-10] MEDS: cefTRIAXone\\ROCEPHIN 1 GM in Sodium Chloride 0.9% 100 ML IVPB SCH (20:35)
[2022-09-11] MEDS: Acetaminophen 325 MG TAB PO PRN ×2 (05:17→21:13)
[2022-09-11 07:26] LABS: #Eosinphils 0.1 thou/uL (0.0-0.7); #Lymphocytes 1.7 thou/uL (1.20-3.40); #Monocytes 0.7 thou/uL (0.11-0.59); #Neutrophils 4.9 thou/uL (1.40-6.50); %Basophils 0.4 % (0.0-1.0); %Eosinophils 1.4 % (0.0-10.0); %Lymphocytes 22.7 % (21.0-51.0); %Neutrophils 65.6 % (42.0-75.0); Hemoglobin 8.6 g/dL (12.0-16.0); Mean Corpuscular HGB CONC 32.1 g/dL (32.0-36.0); Mean Corpuscular Hemoglobin 25.6 pg (27.0-31.0); Mean Corpuscular Volume 79.5 fl (78.0-98.0); Mean Platelet Volume 10.1 fL (7.4-10.4); Platelet Count 221 10x3/uL (130-400); RBC Distribution Width 19.5 % (11.5-14.5); Red Blood Cell (RBC) Count 3.35 mill/uL (4.20-5.40); White Blood Cell (WBC) Count 7.4 10x3/uL (4.8-10.8)
[2022-09-11 07:29] LABS: Anion Gap 12 mmol/L (10-20); BUN (Urea Nitrogen) 6 mg/dL (9.8-20.1); Calc. Creatinine Clearance 88 mL/min (70-130); Calcium 8.2 mg/dL (7.8-10.44); Carbon Dioxide 19 mmol/L (23-31); Chloride 113 mmol/L (98-107); Estimated GFR 94; Glucose 91 mg/dL (80-115); Potassium 3.5 mmol/L (3.5-5.1); Sodium 140 mmol/L (136-145)
[2022-09-11] MEDS: Sodium Chloride 0.9% 1,000 ML IV SCH (09:15)
[2022-09-11] MEDS: Lisinopril 5 MG TAB PO SCH (09:16)
[2022-09-11] MEDS: Prasugrel 10 MG TAB PO SCH (09:16)
[2022-09-11] MEDS: Ezetimibe 10 MG TAB PO SCH (09:16)
[2022-09-11] MEDS: Docusate 100 MG CAP PO SCH (09:16)
[2022-09-11] MEDS: Leflunomide 10 mg Tablet PO SCH (09:16)
[2022-09-11] MEDS: Aspirin 81 mg Enteric Coated Tablet PO SCH (09:16)
[2022-09-11] MEDS: Hydroxychloroquine Sulfate 200 MG TAB PO SCH ×2 (09:20→21:08)
[2022-09-11] MEDS: cefTRIAXone\\ROCEPHIN 1 GM in Sodium Chloride 0.9% 100 ML IVPB SCH (20:06)
[2022-09-11] MEDS: Rosuvastatin 20 MG TAB PO SCH (21:07)
[2022-09-12] MEDS: Sodium Chloride 0.9% 1,000 ML IV SCH ×2 (04:54→20:36)
[2022-09-12] MEDS: Ezetimibe 10 MG TAB PO SCH (09:11)
[2022-09-12] MEDS: Prasugrel 10 MG TAB PO SCH (09:11)
[2022-09-12] MEDS: Aspirin 81 mg Enteric Coated Tablet PO SCH (09:11)
[2022-09-12] MEDS: Lisinopril 5 MG TAB PO SCH (09:11)
[2022-09-12] MEDS: Docusate 100 MG CAP PO SCH (09:11)
[2022-09-12] MEDS: Leflunomide 10 mg Tablet PO SCH (09:11)
[2022-09-12] MEDS: Hydroxychloroquine Sulfate 200 MG TAB PO SCH ×2 (09:12→20:33)
[2022-09-12] MEDS ORDERED: Furosemide 40 MG/4 ML VIAL SLOW IVP SCH (18:00)
[2022-09-12] MEDS: Cefdinir 300 MG CAP PO SCH (20:32)
[2022-09-12] MEDS: Rosuvastatin 20 MG TAB PO SCH (20:33)
[2022-09-13 06:32] LABS: #Basophils 0.1 thou/uL (0.0-0.2); #Eosinphils 0.2 thou/uL (0.0-0.7); #Lymphocytes 1.7 thou/uL (1.20-3.40); #Monocytes 0.9 thou/uL (0.11-0.59); %Basophils 1.4 % (0.0-1.0); %Eosinophils 2.4 % (0.0-10.0); %Lymphocytes 24.6 % (21.0-51.0); %Monocytes 12.6 % (0.0-10.0); Hemoglobin 9.6 g/dL (12.0-16.0); Mean Corpuscular HGB CONC 33.2 g/dL (32.0-36.0); Mean Corpuscular Volume 78.3 fl (78.0-98.0); Mean Platelet Volume 10.1 fL (7.4-10.4); Platelet Count 202 10x3/uL (130-400); RBC Distribution Width 19.6 % (11.5-14.5); White Blood Cell (WBC) Count 6.8 10x3/uL (4.8-10.8)
[2022-09-13 06:46] LABS: Anion Gap 14 mmol/L (10-20); BUN (Urea Nitrogen) 6 mg/dL (9.8-20.1); Calc. Creatinine Clearance 91 mL/min (70-130); Calcium 8.1 mg/dL (7.8-10.44); Carbon Dioxide 22 mmol/L (23-31); Chloride 106 mmol/L (98-107); Estimated GFR 94; Glucose 86 mg/dL (80-115); Sodium 139 mmol/L (136-145)
[2022-09-13] MEDS: Aspirin 81 mg Enteric Coated Tablet PO SCH (08:27)
[2022-09-13] MEDS: Prasugrel 10 MG TAB PO SCH (08:28)
[2022-09-13] MEDS: Leflunomide 10 mg Tablet PO SCH (08:28)
[2022-09-13] MEDS: Cefdinir 300 MG CAP PO SCH ×2 (08:28→20:00)
[2022-09-13] MEDS: Lisinopril 5 MG TAB PO SCH (08:28)
[2022-09-13] MEDS: Hydroxychloroquine Sulfate 200 MG TAB PO SCH ×2 (08:28→20:00)
[2022-09-13] MEDS: Ezetimibe 10 MG TAB PO SCH (08:28)
[2022-09-13] MEDS: Docusate 100 MG CAP PO SCH (08:28)
[2022-09-13] MEDS ORDERED: predniSONE 5 MG TAB PO SCH (16:30)
[2022-09-13] MEDS: Sodium Chloride 0.9% 1,000 ML IV SCH (19:50)
[2022-09-13] MEDS: Rosuvastatin 20 MG TAB PO SCH (20:00)
[2022-09-13] MEDS: Acetaminophen 325 MG TAB PO PRN (22:51)
[2022-09-14] MEDS: Lisinopril 5 MG TAB PO SCH (08:38)
[2022-09-14] MEDS: Aspirin 81 mg Enteric Coated Tablet PO SCH (08:38)
[2022-09-14] MEDS: Hydroxychloroquine Sulfate 200 MG TAB PO SCH ×2 (08:38→20:35)
[2022-09-14] MEDS: predniSONE 5 MG TAB PO SCH (08:38)
[2022-09-14] MEDS: Docusate 100 MG CAP PO SCH (08:38)
[2022-09-14] MEDS: DULoxetine 20 MG CAP PO SCH (08:38)
[2022-09-14] MEDS: Cefdinir 300 MG CAP PO SCH ×2 (08:38→20:37)
[2022-09-14] MEDS: Prasugrel 10 MG TAB PO SCH (08:38)
[2022-09-14] MEDS: Ezetimibe 10 MG TAB PO SCH (08:38)
[2022-09-14] MEDS: Leflunomide 10 mg Tablet PO SCH (08:38)
[2022-09-14 08:42] LABS: Potassium 3.8 mmol/L (3.5-5.1)
[2022-09-14] MEDS: Sodium Chloride 0.9% 1,000 ML IV SCH (16:58)
[2022-09-14] MEDS: Rosuvastatin 20 MG TAB PO SCH (20:34)
[2022-09-14] MEDS: Acetaminophen 325 MG TAB PO PRN (20:50)
[2022-09-15] MEDS: Prasugrel 10 MG TAB PO SCH (09:34)
[2022-09-15] MEDS: Leflunomide 10 mg Tablet PO SCH (09:35)
[2022-09-15] MEDS: Lisinopril 5 MG TAB PO SCH (09:36)
[2022-09-15] MEDS: Cefdinir 300 MG CAP PO SCH ×2 (09:36→21:17)
[2022-09-15] MEDS: predniSONE 5 MG TAB PO SCH (09:36)
[2022-09-15] MEDS: Aspirin 81 mg Enteric Coated Tablet PO SCH (09:37)
[2022-09-15] MEDS: Ezetimibe 10 MG TAB PO SCH (09:37)
[2022-09-15] MEDS: Docusate 100 MG CAP PO SCH (09:38)
[2022-09-15] MEDS: DULoxetine 20 MG CAP PO SCH (09:39)
[2022-09-15] MEDS: Hydroxychloroquine Sulfate 200 MG TAB PO SCH ×2 (09:39→21:17)
[2022-09-15] MEDS: Sodium Chloride 0.9% 1,000 ML IV SCH (12:35)
[2022-09-15] MEDS: Rosuvastatin 20 MG TAB PO SCH (21:16)
[2022-09-15] MEDS: Acetaminophen 325 MG TAB PO PRN (21:19)
[2022-09-15] MEDS ORDERED: Calcium Carbonate 500 MG ChewTAB PO PRN (22:22)
[2022-09-16] MEDS: Ezetimibe 10 MG TAB PO SCH (09:56)
[2022-09-16] MEDS: predniSONE 5 MG TAB PO SCH (09:56)
[2022-09-16] MEDS: Leflunomide 10 mg Tablet PO SCH (09:56)
[2022-09-16] MEDS: Hydroxychloroquine Sulfate 200 MG TAB PO SCH ×2 (09:57→21:19)
[2022-09-16] MEDS: Cefdinir 300 MG CAP PO SCH (09:57)
[2022-09-16] MEDS: Prasugrel 10 MG TAB PO SCH (09:57)
[2022-09-16] MEDS: Aspirin 81 mg Enteric Coated Tablet PO SCH (09:57)
[2022-09-16] MEDS: Docusate 100 MG CAP PO SCH (09:57)
[2022-09-16] MEDS: Lisinopril 5 MG TAB PO SCH (10:00)
[2022-09-16] MEDS: Sodium Chloride 0.9% 1,000 ML IV SCH (10:55)
[2022-09-16] MEDS: DULoxetine 20 MG CAP PO SCH (10:55)
[2022-09-16] MEDS ORDERED: Furosemide 40 MG/4 ML VIAL SLOW IVP SCH (16:15)
[2022-09-16 18:46] LABS: #Basophils 0.1 thou/uL (0.0-0.2); #Monocytes 0.5 thou/uL (0.11-0.59); #Neutrophils 4.4 thou/uL (1.40-6.50); %Basophils 0.9 % (0.0-1.0); %Eosinophils 0.7 % (0.0-10.0); %Lymphocytes 16.4 % (21.0-51.0); %Monocytes 8.1 % (0.0-10.0); Hemoglobin 9.4 g/dL (12.0-16.0); Mean Corpuscular HGB CONC 31.4 g/dL (32.0-36.0); Mean Corpuscular Volume 79.8 fl (78.0-98.0); Mean Platelet Volume 10.5 fL (7.4-10.4); Platelet Count 193 10x3/uL (130-400); RBC Distribution Width 19.7 % (11.5-14.5); Red Blood Cell (RBC) Count 3.77 mill/uL (4.20-5.40); White Blood Cell (WBC) Count 5.9 10x3/uL (4.8-10.8)
[2022-09-16 19:08] LABS: Anion Gap 12 mmol/L (10-20); BUN (Urea Nitrogen) 9 mg/dL (9.8-20.1); Calc. Creatinine Clearance 93 mL/min (70-130); Calcium 8.8 mg/dL (7.8-10.44); Carbon Dioxide 25 mmol/L (23-31); Chloride 105 mmol/L (98-107); Estimated GFR 95; Glucose 239 mg/dL (80-115); Potassium 3.6 mmol/L (3.5-5.1); Sodium 138 mmol/L (136-145)
[2022-09-16] MEDS: Acetaminophen 325 MG TAB PO PRN (21:18)
[2022-09-16] MEDS: Rosuvastatin 20 MG TAB PO SCH (21:19)
[2022-09-17] MEDS: Sodium Chloride 0.9% 1,000 ML IV SCH (03:22)
[2022-09-17] MEDS: Furosemide 40 MG/4 ML VIAL SLOW IVP SCH ×2 (09:55→11:05)
[2022-09-17] MEDS: predniSONE 5 MG TAB PO SCH (09:55)
[2022-09-17] MEDS: Ezetimibe 10 MG TAB PO SCH (09:55)
[2022-09-17] MEDS: Aspirin 81 mg Enteric Coated Tablet PO SCH (09:55)
[2022-09-17] MEDS: Prasugrel 10 MG TAB PO SCH (09:55)
[2022-09-17] MEDS: Lisinopril 5 MG TAB PO SCH (09:56)
[2022-09-17] MEDS: Docusate 100 MG CAP PO SCH (09:56)
[2022-09-17] MEDS: Hydroxychloroquine Sulfate 200 MG TAB PO SCH (09:56)
[2022-09-17] MEDS: Leflunomide 10 mg Tablet PO SCH (09:56)
[2022-09-17] MEDS: DULoxetine 20 MG CAP PO SCH (09:57)
[2022-09-17 10:31] VITALS: BP 111/66
[2022-09-17 10:39] LABS: Magnesium 1.6 mg/dL (1.6-2.6)
[2022-09-17 15:01] VITALS: TEMP 97.6
[2022-09-18] MEDS ORDERED: Magnesium Oxide 400 MG TAB PO SCH (09:00)
== END 2022-09-17 15:13 | disposition swing bed (61) | DRG 689 ==
LOC: ERS 15:46 → SUATTDRO 15:46 → T4-B 18:25 → OBSVTOIN 09-12 14:39
PROVIDERS: ADMIT Internal Medicine; ATTEND Internal Medicine
DX: N39.0 Urinary tract infection, site not specified (principal); I50.23 Acute on chronic systolic (congestive) heart failure; J96.00 Acute respiratory failure, unspecified whether with hypoxia or hypercapnia; S22.32XA Fracture of one rib, left side, initial encounter for closed fracture; K59.00 Constipation, unspecified; I11.0 Hypertensive heart disease with heart failure; M06.9 Rheumatoid arthritis, unspecified; I25.10 Atherosclerotic heart disease of native coronary artery without angina pectoris; E11.649 Type 2 diabetes mellitus with hypoglycemia without coma; J84.10 Pulmonary fibrosis, unspecified; B96.20 Unspecified Escherichia coli [E. coli] as the cause of diseases classified elsewhere; W19.XXXA Unspecified fall, initial encounter; Z88.5 Allergy status to narcotic agent; Z88.8 Allergy status to other drugs, medicaments and biological substances; Z79.899 Other long term (current) drug therapy; Z79.82 Long term (current) use of aspirin; Z79.52 Long term (current) use of systemic steroids; Z95.1 Presence of aortocoronary bypass graft; Z90.49 Acquired absence of other specified parts of digestive tract; Z90.711 Acquired absence of uterus with remaining cervical stump; Z87.891 Personal history of nicotine dependence
CPT/HCPCS: 36415; 36416; 51701; 71045; 74177; 80048; 80053; 81003; 81015; 83690; 83735; 84132; 85025; 87077; 87086; 87186; 87811; 93005; 94640; 94760; 96365; 96366; 96367; 96372; 96375; 96376; 97139; G0378; J0696; J0744; J1650; J1815; J1940; J3490; J7050; J7512; J7620; J7999; Q9967; U0003; U0005

== ENCOUNTER 2022-09-18 08:11 | Inpatient (IN) | payer OTHER, MEDICAID ==
[2022-09-18 09:22] LABS: #Basophils 0.1 thou/uL (0.0-0.2); #Eosinphils 0.2 thou/uL (0.0-0.7); #Lymphocytes 1.4 thou/uL (1.20-3.40); #Monocytes 0.8 thou/uL (0.11-0.59); #Neutrophils 4.2 thou/uL (1.40-6.50); %Basophils 1.4 % (0.0-1.0); %Eosinophils 2.3 % (0.0-10.0); %Lymphocytes 21.1 % (21.0-51.0); %Monocytes 12.1 % (0.0-10.0); %Neutrophils 63.1 % (42.0-75.0); Mean Corpuscular HGB CONC 31.2 g/dL (32.0-36.0); Mean Corpuscular Hemoglobin 25.1 pg (27.0-31.0); Mean Corpuscular Volume 80.4 fl (78.0-98.0); Mean Platelet Volume 9.4 fL (7.4-10.4); Platelet Count 205 10x3/uL (130-400); RBC Distribution Width 18.4 % (11.5-14.5); Red Blood Cell (RBC) Count 3.16 mill/uL (4.20-5.40); White Blood Cell (WBC) Count 6.7 10x3/uL (4.8-10.8)
[2022-09-18 09:35] LABS: PTT 30.8 sec (22.9-36.1); Prothrombin Time 13.4 sec (12.0-14.7)
[2022-09-18 09:38] LABS: ALT (SGPT) 7 U/L (8-55); AST (SGOT) 11 U/L (5-34); Albumin 2.9 g/dL (3.4-4.8); Alkaline Phosphatase 81 U/L (40-110); Anion Gap 9 mmol/L (10-20); BUN (Urea Nitrogen) 12 mg/dL (9.8-20.1); Bilirubin, Total 0.5 mg/dL (0.2-1.2); Calc. Creatinine Clearance 0 mL/min (70-130); Calcium 8.2 mg/dL (7.8-10.44); Carbon Dioxide 27 mmol/L (23-31); Chloride 107 mmol/L (98-107); Estimated GFR 95; Globulin 1.9 g/dL (2.4-3.5); Glucose 132 mg/dL (80-115); Potassium 4.2 mmol/L (3.5-5.1); Protein, Total 4.8 g/dL (5.8-8.1); Sodium 139 mmol/L (136-145)
[2022-09-18] MEDS ORDERED: Sodium Chloride 0.9% 1,000 ML IV SCH (10:30)
[2022-09-18] MEDS ORDERED: Acetaminophen 325 MG TAB PO PRN (10:35)
[2022-09-18] MEDS ORDERED: Acetaminophen 650 MG Suppository PR PRN (10:35)
[2022-09-18] MEDS ORDERED: Pantoprazole 40 MG VIAL ONE (10:47)
[2022-09-18 12:44] LABS: Hemoglobin 8.8 g/dL (12.0-16.0)
[2022-09-18 18:12] LABS: Hemoglobin 7.5 g/dL (12.0-16.0)
[2022-09-18] MEDS ORDERED: GoLYTELY 4,000 ml Bottle PO SCH (19:00)
[2022-09-18 19:26] LABS: SARS-CoV-2 NAA Rapid Test Not Detected (NotDetected)
[2022-09-18] MEDS: Vancomycin HCl 125 MG/5 ML (BATCHED) UDCUP PO SCH (21:19)
[2022-09-18] MEDS: Pantoprazole 40 MG VIAL IVP SCH (21:19)
[2022-09-18] MEDS: Sodium Chloride 0.9% 1,000 ML IV SCH (21:19)
[2022-09-18] MEDS ORDERED: Ondansetron ODT 4 MG TAB PO PRN (22:18)
[2022-09-18] MEDS: Ondansetron PF 4 MG/2 ML Vial IVP PRN (22:47)
[2022-09-19 00:56] VITALS: BMI 26.9
[2022-09-19] MEDS: Vancomycin HCl 125 MG/5 ML (BATCHED) UDCUP PO SCH ×3 (02:13→13:26)
[2022-09-19] MEDS: Sodium Chloride 0.9% 1,000 ML IV SCH ×2 (06:13→16:27)
[2022-09-19 06:22] LABS: #Basophils 0.1 thou/uL (0.0-0.2); #Monocytes 0.9 thou/uL (0.11-0.59); #Neutrophils 6.5 thou/uL (1.40-6.50); %Basophils 1.1 % (0.0-1.0); %Eosinophils 0.4 % (0.0-10.0); %Lymphocytes 21.1 % (21.0-51.0); %Monocytes 9.9 % (0.0-10.0); %Neutrophils 67.5 % (42.0-75.0); Hemoglobin 7.5 g/dL (12.0-16.0); Mean Corpuscular HGB CONC 32.4 g/dL (32.0-36.0); Mean Corpuscular Hemoglobin 27.2 pg (27.0-31.0); Mean Corpuscular Volume 84.1 fl (78.0-98.0); Mean Platelet Volume 9.6 fL (7.4-10.4); Platelet Count 175 10x3/uL (130-400); RBC Distribution Width 18.4 % (11.5-14.5); Red Blood Cell (RBC) Count 2.74 mill/uL (4.20-5.40); White Blood Cell (WBC) Count 9.6 10x3/uL (4.8-10.8)
[2022-09-19 06:36] LABS: Anion Gap 12 mmol/L (10-20); BUN (Urea Nitrogen) 15 mg/dL (9.8-20.1); Calc. Creatinine Clearance 89 mL/min (70-130); Calcium 7.9 mg/dL (7.8-10.44); Carbon Dioxide 24 mmol/L (23-31); Chloride 107 mmol/L (98-107); Estimated GFR 95; Glucose 92 mg/dL (80-115); Potassium 3.9 mmol/L (3.5-5.1); Sodium 139 mmol/L (136-145)
[2022-09-19] MEDS ORDERED: Lidocaine 1% PF 5 ML VIAL ONE (08:30)
[2022-09-19] MEDS ORDERED: PROPOFOL 200 MG/20 ML VIAL ONE (08:30)
[2022-09-19] MEDS ORDERED: PHENYLEPHRINE-NS 100 MCG/ML 10 ML SYRINGE ONE (08:30)
[2022-09-19] MEDS: Pantoprazole 40 MG VIAL IVP SCH ×2 (11:21→20:29)
[2022-09-19] MEDS: Ondansetron PF 4 MG/2 ML Vial IVP PRN (13:26)
[2022-09-19] MEDS ORDERED: predniSONE 5 MG TAB PO SCH (14:30)
[2022-09-19] MEDS: Hydroxychloroquine Sulfate 200 MG TAB PO SCH (20:29)
[2022-09-19] MEDS: Rosuvastatin 20 MG TAB PO SCH (20:29)
[2022-09-20 03:59] LABS: #Basophils 0.1 thou/uL (0.0-0.2); #Lymphocytes 1.3 thou/uL (1.20-3.40); #Monocytes 0.7 thou/uL (0.11-0.59); #Neutrophils 4.3 thou/uL (1.40-6.50); %Eosinophils 0.4 % (0.0-10.0); %Lymphocytes 19.9 % (21.0-51.0); %Monocytes 11.4 % (0.0-10.0); %Neutrophils 67.3 % (42.0-75.0); Hemoglobin 6.7 g/dL (12.0-16.0); Mean Corpuscular Volume 84.3 fl (78.0-98.0); Mean Platelet Volume 9.2 fL (7.4-10.4); Platelet Count 184 10x3/uL (130-400); RBC Distribution Width 18.9 % (11.5-14.5); Red Blood Cell (RBC) Count 2.49 mill/uL (4.20-5.40); White Blood Cell (WBC) Count 6.4 10x3/uL (4.8-10.8)
[2022-09-20 04:26] LABS: Anion Gap 7 mmol/L (10-20); BUN (Urea Nitrogen) 10 mg/dL (9.8-20.1); Calc. Creatinine Clearance 87 mL/min (70-130); Calcium 7.9 mg/dL (7.8-10.44); Carbon Dioxide 25 mmol/L (23-31); Chloride 108 mmol/L (98-107); Estimated GFR 94; Glucose 137 mg/dL (80-115); Potassium 4.2 mmol/L (3.5-5.1); Sodium 136 mmol/L (136-145)
[2022-09-20] MEDS: Sodium Chloride 0.9% 1,000 ML IV SCH ×2 (05:57→16:03)
[2022-09-20] MEDS: predniSONE 5 MG TAB PO SCH (08:59)
[2022-09-20] MEDS: Aspirin 81 mg Enteric Coated Tablet PO SCH (08:59)
[2022-09-20] MEDS: Hydroxychloroquine Sulfate 200 MG TAB PO SCH ×2 (09:00→21:37)
[2022-09-20] MEDS: Ezetimibe 10 MG TAB PO SCH (09:00)
[2022-09-20] MEDS: DULoxetine 20 MG CAP PO SCH (09:00)
[2022-09-20] MEDS: Leflunomide 10 mg Tablet PO SCH (09:01)
[2022-09-20] MEDS: Pantoprazole 40 MG VIAL IVP SCH ×2 (09:02→21:38)
[2022-09-20 12:40] LABS: Hemoglobin 9.2 g/dL (12.0-16.0)
[2022-09-20] MEDS: Rosuvastatin 20 MG TAB PO SCH (21:38)
[2022-09-21] MEDS: Leflunomide 10 mg Tablet PO SCH (09:01)
[2022-09-21] MEDS: DULoxetine 20 MG CAP PO SCH (09:02)
[2022-09-21] MEDS: Hydroxychloroquine Sulfate 200 MG TAB PO SCH ×2 (09:02→21:18)
[2022-09-21] MEDS: predniSONE 5 MG TAB PO SCH (09:02)
[2022-09-21] MEDS: Aspirin 81 mg Enteric Coated Tablet PO SCH (09:02)
[2022-09-21] MEDS: Ezetimibe 10 MG TAB PO SCH (09:02)
[2022-09-21] MEDS: Pantoprazole 40 MG VIAL IVP SCH ×2 (09:03→21:18)
[2022-09-21] MEDS: Sodium Chloride 0.9% 1,000 ML IV SCH (09:08)
[2022-09-21] MEDS: Rosuvastatin 20 MG TAB PO SCH (21:18)
[2022-09-22] MEDS: Sodium Chloride 0.9% 1,000 ML IV SCH (00:42)
[2022-09-22 04:56] LABS: Mean Corpuscular HGB CONC 31.8 g/dL (32.0-36.0); Mean Corpuscular Hemoglobin 27.2 pg (27.0-31.0); Mean Corpuscular Volume 85.8 fl (78.0-98.0); Mean Platelet Volume 9.3 fL (7.4-10.4); Platelet Count 175 10x3/uL (130-400); RBC Distribution Width 19.1 % (11.5-14.5); Red Blood Cell (RBC) Count 2.94 mill/uL (4.20-5.40)
[2022-09-22] MEDS ORDERED: Furosemide 20 MG/2 ML VIAL SLOW IVP SCH (08:45)
[2022-09-22] MEDS ORDERED: FLU VACC QS2022-23(65YR UP)/PF 240 MCG/0.7 ML SYRINGE IM ONE (09:00)
[2022-09-22] MEDS: predniSONE 5 MG TAB PO SCH (09:03)
[2022-09-22] MEDS: Aspirin 81 mg Enteric Coated Tablet PO SCH (09:04)
[2022-09-22] MEDS: DULoxetine 20 MG CAP PO SCH (09:04)
[2022-09-22] MEDS: Ezetimibe 10 MG TAB PO SCH (09:04)
[2022-09-22] MEDS: Leflunomide 10 mg Tablet PO SCH (09:05)
[2022-09-22] MEDS ORDERED: Ipratropium/Albuterol 3 ML NEB NEB PRN (09:05)
[2022-09-22] MEDS: Pantoprazole 40 MG VIAL IVP SCH ×2 (09:05→21:13)
[2022-09-22] MEDS: Hydroxychloroquine Sulfate 200 MG TAB PO SCH ×2 (09:05→21:14)
[2022-09-22] MEDS ORDERED: Furosemide 20 MG TAB PO SCH (14:00)
[2022-09-22] MEDS: Rosuvastatin 20 MG TAB PO SCH (21:13)
[2022-09-23] MEDS: DULoxetine 20 MG CAP PO SCH (11:14)
[2022-09-23] MEDS: Hydroxychloroquine Sulfate 200 MG TAB PO SCH ×2 (11:14→21:45)
[2022-09-23] MEDS: Aspirin 81 mg Enteric Coated Tablet PO SCH (11:14)
[2022-09-23] MEDS: predniSONE 5 MG TAB PO SCH (11:14)
[2022-09-23] MEDS: Furosemide 40 MG TAB PO SCH (11:14)
[2022-09-23] MEDS: Pantoprazole 40 MG VIAL IVP SCH ×2 (11:15→21:45)
[2022-09-23] MEDS: Leflunomide 10 mg Tablet PO SCH (11:15)
[2022-09-23] MEDS: Ezetimibe 10 MG TAB PO SCH (11:15)
[2022-09-23] MEDS: Rosuvastatin 20 MG TAB PO SCH (21:42)
[2022-09-23] MEDS ORDERED: Melatonin 3 MG TAB PO PRN (21:54)
[2022-09-24] MEDS: predniSONE 5 MG TAB PO SCH (10:01)
[2022-09-24] MEDS: Aspirin 81 mg Enteric Coated Tablet PO SCH (10:01)
[2022-09-24] MEDS: Leflunomide 10 mg Tablet PO SCH (10:02)
[2022-09-24] MEDS: Hydroxychloroquine Sulfate 200 MG TAB PO SCH ×2 (10:02→21:41)
[2022-09-24] MEDS: Ezetimibe 10 MG TAB PO SCH (10:02)
[2022-09-24] MEDS: DULoxetine 20 MG CAP PO SCH (10:02)
[2022-09-24] MEDS: Furosemide 40 MG TAB PO SCH (10:04)
[2022-09-24] MEDS: Pantoprazole 40 MG VIAL IVP SCH (10:06)
[2022-09-24] MEDS: Rosuvastatin 20 MG TAB PO SCH (21:41)
[2022-09-25 04:49] LABS: Hemoglobin 8.3 g/dL (12.0-16.0); Mean Corpuscular HGB CONC 32.2 g/dL (32.0-36.0); Mean Corpuscular Hemoglobin 27.3 pg (27.0-31.0); Mean Corpuscular Volume 84.9 fl (78.0-98.0); Mean Platelet Volume 9.9 fL (7.4-10.4); Platelet Count 179 10x3/uL (130-400); RBC Distribution Width 18.3 % (11.5-14.5); Red Blood Cell (RBC) Count 3.02 mill/uL (4.20-5.40); White Blood Cell (WBC) Count 4.6 10x3/uL (4.8-10.8)
[2022-09-25 05:04] LABS: Anion Gap 12 mmol/L (10-20); BUN (Urea Nitrogen) 8 mg/dL (9.8-20.1); Calc. Creatinine Clearance 94 mL/min (70-130); Calcium 8.4 mg/dL (7.8-10.44); Carbon Dioxide 26 mmol/L (23-31); Chloride 102 mmol/L (98-107); Estimated GFR 95; Glucose 85 mg/dL (80-115); Potassium 3.3 mmol/L (3.5-5.1); Sodium 137 mmol/L (136-145)
[2022-09-25] MEDS ORDERED: Potassium Chloride 20 MEQ TAB PO SCH (08:45)
[2022-09-25] MEDS: Ezetimibe 10 MG TAB PO SCH (09:10)
[2022-09-25] MEDS: predniSONE 5 MG TAB PO SCH (09:10)
[2022-09-25] MEDS: Hydroxychloroquine Sulfate 200 MG TAB PO SCH ×2 (09:10→22:11)
[2022-09-25] MEDS: Aspirin 81 mg Enteric Coated Tablet PO SCH (09:10)
[2022-09-25] MEDS: Furosemide 40 MG TAB PO SCH (09:11)
[2022-09-25] MEDS: Leflunomide 10 mg Tablet PO SCH (11:05)
[2022-09-25] MEDS: DULoxetine 20 MG CAP PO SCH (11:05)
[2022-09-25 17:41] LABS: Campy jejuni + coli by PCR Negative (Negative); STEC Shiga Toxin 1+2 Negative (Negative); Salmonella spp. by PCR Negative (Negative); Shigella spp + EIEC by PCR Negative (Negative)
[2022-09-25] MEDS: Rosuvastatin 20 MG TAB PO SCH (22:11)
[2022-09-26] MEDS: Hydroxychloroquine Sulfate 200 MG TAB PO SCH ×2 (10:06→22:28)
[2022-09-26] MEDS: predniSONE 5 MG TAB PO SCH (10:07)
[2022-09-26] MEDS: Furosemide 40 MG TAB PO SCH (10:07)
[2022-09-26] MEDS: DULoxetine 20 MG CAP PO SCH (10:07)
[2022-09-26] MEDS: Ezetimibe 10 MG TAB PO SCH (10:07)
[2022-09-26] MEDS: Aspirin 81 mg Enteric Coated Tablet PO SCH (10:07)
[2022-09-26] MEDS: Leflunomide 10 mg Tablet PO SCH (10:17)
[2022-09-26] MEDS: Rosuvastatin 20 MG TAB PO SCH (22:27)
[2022-09-27] MEDS: Furosemide 40 MG TAB PO SCH (05:41)
[2022-09-27] MEDS: predniSONE 5 MG TAB PO SCH (09:01)
[2022-09-27] MEDS: Ezetimibe 10 MG TAB PO SCH (09:02)
[2022-09-27] MEDS: Hydroxychloroquine Sulfate 200 MG TAB PO SCH (09:02)
[2022-09-27] MEDS: DULoxetine 20 MG CAP PO SCH (09:02)
[2022-09-27] MEDS: Aspirin 81 mg Enteric Coated Tablet PO SCH (09:02)
[2022-09-27] MEDS: Leflunomide 10 mg Tablet PO SCH (10:45)
[2022-09-27 12:43] LABS: #Lymphocytes 0.5 thou/uL (1.20-3.40); #Monocytes 0.6 thou/uL (0.11-0.59); #Neutrophils 4.4 thou/uL (1.40-6.50); %Basophils 0.7 % (0.0-1.0); %Eosinophils 0.7 % (0.0-10.0); %Lymphocytes 8.5 % (21.0-51.0); %Monocytes 11.2 % (0.0-10.0); %Neutrophils 78.8 % (42.0-75.0); Hemoglobin 8.8 g/dL (12.0-16.0); Mean Corpuscular HGB CONC 31.9 g/dL (32.0-36.0); Mean Corpuscular Hemoglobin 26.8 pg (27.0-31.0); Mean Platelet Volume 9.8 fL (7.4-10.4); Platelet Count 187 10x3/uL (130-400); RBC Distribution Width 18.1 % (11.5-14.5); White Blood Cell (WBC) Count 5.5 10x3/uL (4.8-10.8)
[2022-09-27 12:46] VITALS: BP 99/56; TEMP 96.1
[2022-09-27 13:01] LABS: Anion Gap 15 mmol/L (10-20); BUN (Urea Nitrogen) 11 mg/dL (9.8-20.1); Calc. Creatinine Clearance 75 mL/min (70-130); Calcium 8.4 mg/dL (7.8-10.44); Carbon Dioxide 25 mmol/L (23-31); Chloride 97 mmol/L (98-107); Estimated GFR 80; Glucose 210 mg/dL (80-115); Potassium 3.8 mmol/L (3.5-5.1); Sodium 133 mmol/L (136-145)
[2022-09-28] MEDS ORDERED: Prasugrel 10 MG TAB PO SCH (09:00)
== END 2022-09-27 14:46 | DRG 378 ==
LOC: ERS 08:11 → 2NO 10:00
PROVIDERS: ADMIT Family Medicine; ATTEND Internal Medicine
PROC: 30233N1 Transfusion of Nonautologous Red Blood Cells into Peripheral Vein, Percutaneous Approach (ICD-10-PCS; principal; 2022-09-18)
PROC: 0DBK8ZZ Excision of Ascending Colon, Via Natural or Artificial Opening Endoscopic (ICD-10-PCS; 2022-09-19)
PROC: 0DBL8ZZ Excision of Transverse Colon, Via Natural or Artificial Opening Endoscopic (ICD-10-PCS; 2022-09-19)
DX: K57.31 Diverticulosis of large intestine without perforation or abscess with bleeding (principal); D62 Acute posthemorrhagic anemia; I11.0 Hypertensive heart disease with heart failure; I50.9 Heart failure, unspecified; E78.5 Hyperlipidemia, unspecified; R19.7 Diarrhea, unspecified; M06.9 Rheumatoid arthritis, unspecified; E11.51 Type 2 diabetes mellitus with diabetic peripheral angiopathy without gangrene; I25.10 Atherosclerotic heart disease of native coronary artery without angina pectoris; Z20.822 Contact with and (suspected) exposure to COVID-19; Z95.1 Presence of aortocoronary bypass graft; Z95.820 Peripheral vascular angioplasty status with implants and grafts; Z88.5 Allergy status to narcotic agent; Z88.6 Allergy status to analgesic agent; Z88.8 Allergy status to other drugs, medicaments and biological substances; Z79.899 Other long term (current) drug therapy; Z79.82 Long term (current) use of aspirin; Z90.49 Acquired absence of other specified parts of digestive tract; Z90.710 Acquired absence of both cervix and uterus; Z98.890 Other specified postprocedural states; Z87.891 Personal history of nicotine dependence
CPT/HCPCS: 36415; 36416; 36430; 71045; 80048; 80053; 83630; 83880; 84484; 85025; 85027; 85610; 85730; 86850; 86900; 86901; 87505; 88305; 93005; 93010; 94640; 96374; 97139; C9113; J1940; J2405; J2704; J7050; J7512; J7620; P9016; Q0162; U0002; U0003; U0005

== ENCOUNTER 2023-08-05 20:18 | Inpatient (IN) | payer OTHER, MEDICAID ==
[2023-08-05] MEDS ORDERED: traMADol HCl 50 MG TAB PO PRN (21:10)
[2023-08-05] MEDS ORDERED: Ondansetron PF 4 MG/2 ML Vial IVP PRN (21:10)
[2023-08-05] MEDS ORDERED: Ondansetron ODT 4 MG TAB PO PRN (21:10)
[2023-08-05] MEDS ORDERED: Sodium Chloride 0.9% 1,000 ML IV SCH (21:15)
[2023-08-05] MEDS ORDERED: Ipratropium/Albuterol 3 ML NEB NEB PRN (22:01)
[2023-08-05 22:29] LABS: #Basophils 0.1 thou/uL (0.0-0.2); #Monocytes 0.9 thou/uL (0.11-0.59); #Neutrophils 4.9 thou/uL (1.40-6.50); %Basophils 1.7 % (0.0-1.0); %Lymphocytes 21.9 % (21.0-51.0); %Monocytes 11.9 % (0.0-10.0); %Neutrophils 64.2 % (42.0-75.0); Hematocrit 30.2 % (36.0-47.0); Hemoglobin 9.2 g/dL (12.0-16.0); Mean Corpuscular HGB CONC 30.5 g/dL (32.0-36.0); Mean Corpuscular Hemoglobin 23.6 pg (27.0-31.0); Mean Corpuscular Volume 77.4 fl (78.0-98.0); Mean Platelet Volume 10.1 fL (7.4-10.4); Platelet Count 262 10x3/uL (130-400); RBC Distribution Width 23.4 % (11.5-14.5); White Blood Cell (WBC) Count 7.6 10x3/uL (4.8-10.8)
[2023-08-05] MEDS: Acetaminophen 500 MG TAB PO SCH (23:46)
[2023-08-05] MEDS ORDERED: traMADol HCl 50 MG TAB PO SCH (23:59)
[2023-08-06 01:19] VITALS: BMI 25.7
[2023-08-06] MEDS: Acetaminophen 500 MG TAB PO SCH ×3 (05:17→18:02)
[2023-08-06 05:43] LABS: #Basophils 0.1 thou/uL (0.0-0.2); #Neutrophils 5.7 thou/uL (1.40-6.50); %Basophils 1.6 % (0.0-1.0); %Lymphocytes 21.7 % (21.0-51.0); %Monocytes 11.1 % (0.0-10.0); %Neutrophils 65.5 % (42.0-75.0); Hematocrit 29.9 % (36.0-47.0); Mean Corpuscular HGB CONC 30.1 g/dL (32.0-36.0); Mean Corpuscular Hemoglobin 23.3 pg (27.0-31.0); Mean Corpuscular Volume 77.3 fl (78.0-98.0); Mean Platelet Volume 9.8 fL (7.4-10.4); Platelet Count 244 10x3/uL (130-400); RBC Distribution Width 23.4 % (11.5-14.5); Red Blood Cell (RBC) Count 3.87 mill/uL (4.20-5.40); White Blood Cell (WBC) Count 8.7 10x3/uL (4.8-10.8)
[2023-08-06 05:56] LABS: INR-International Normal Ratio 1.1; PTT 33.3 sec (22.9-36.1); Prothrombin Time 14.3 sec (12.0-14.7)
[2023-08-06 06:09] LABS: Anion Gap 15 mmol/L (10-20); BUN (Urea Nitrogen) 27 mg/dL (9.8-20.1); Calc. Creatinine Clearance 32 mL/min (70-130); Calcium 9.1 mg/dL (7.8-10.44); Carbon Dioxide 24 mmol/L (23-31); Chloride 98 mmol/L (98-107); Estimated GFR 31; Glucose 72 mg/dL (80-115); Potassium 4.3 mmol/L (3.5-5.1); Sodium 133 mmol/L (136-145)
[2023-08-06] MEDS: Sodium Chloride 0.9% 1,000 ML IV SCH (07:00)
[2023-08-06 08:27] LABS: Troponin I 0.027 ng/mL (< 0.028)
[2023-08-06] MEDS: DULoxetine 20 MG CAP PO SCH (08:52)
[2023-08-06] MEDS: Ranolazine 500 MG ER.TAB PO SCH ×2 (08:52→21:39)
[2023-08-06] MEDS: Magnesium Oxide 400 MG TAB PO SCH (08:52)
[2023-08-06] MEDS: Leflunomide 10 mg Tablet PO SCH (08:52)
[2023-08-06] MEDS: predniSONE 5 MG TAB PO SCH (08:53)
[2023-08-06] MEDS ORDERED: CEFAZOLIN 2 GM in Sodium Chloride 0.9% 100 ML IVPB SCH (09:00)
[2023-08-06] MEDS ORDERED: Famotidine 20 MG TAB PO SCH (09:00)
[2023-08-06] MEDS: cefTRIAXone\\ROCEPHIN 1 GM in Sodium Chloride 0.9% 100 ML IVPB SCH (11:28)
[2023-08-06] MEDS: Vancomycin 1 GM in Premix 1 BAG IVPB SCH (11:29)
[2023-08-06] MEDS: Ciprofloxacin 0.2% Otic (0.25ML CONTAINER) L EAR SCH ×3 (11:31→21:38)
[2023-08-06] MEDS: Rosuvastatin 20 MG TAB PO SCH (21:38)
[2023-08-06] MEDS: traMADol HCl 50 MG TAB PO PRN (21:39)
[2023-08-07] MEDS: Acetaminophen 500 MG TAB PO SCH ×4 (02:04→19:19)
[2023-08-07 06:16] LABS: #Basophils 0.1 thou/uL (0.0-0.2); #Eosinphils 0.1 thou/uL (0.0-0.7); #Monocytes 0.9 thou/uL (0.11-0.59); #Neutrophils 6.2 thou/uL (1.40-6.50); %Basophils 1.2 % (0.0-1.0); %Eosinophils 0.6 % (0.0-10.0); %Lymphocytes 18.7 % (21.0-51.0); %Monocytes 9.7 % (0.0-10.0); %Neutrophils 69.5 % (42.0-75.0); Hematocrit 29.8 % (36.0-47.0); Hemoglobin 8.7 g/dL (12.0-16.0); Mean Corpuscular HGB CONC 29.2 g/dL (32.0-36.0); Mean Corpuscular Hemoglobin 22.8 pg (27.0-31.0); Mean Corpuscular Volume 78.2 fl (78.0-98.0); Mean Platelet Volume 10.2 fL (7.4-10.4); Platelet Count 256 10x3/uL (130-400); RBC Distribution Width 23.6 % (11.5-14.5); Red Blood Cell (RBC) Count 3.81 mill/uL (4.20-5.40); White Blood Cell (WBC) Count 8.9 10x3/uL (4.8-10.8)
[2023-08-07 06:40] LABS: Anion Gap 12 mmol/L (10-20); BUN (Urea Nitrogen) 28 mg/dL (9.8-20.1); Calc. Creatinine Clearance 40 mL/min (70-130); Calcium 8.8 mg/dL (7.8-10.44); Carbon Dioxide 25 mmol/L (23-31); Chloride 102 mmol/L (98-107); Estimated GFR 41; Glucose 83 mg/dL (80-115); Potassium 4.2 mmol/L (3.5-5.1); Sodium 135 mmol/L (136-145)
[2023-08-07] MEDS: Ranolazine 500 MG ER.TAB PO SCH ×2 (09:23→21:22)
[2023-08-07] MEDS: predniSONE 5 MG TAB PO SCH (09:23)
[2023-08-07] MEDS: Magnesium Oxide 400 MG TAB PO SCH (09:23)
[2023-08-07] MEDS: Leflunomide 10 mg Tablet PO SCH (09:24)
[2023-08-07] MEDS: DULoxetine 20 MG CAP PO SCH (09:24)
[2023-08-07] MEDS: Ciprofloxacin 0.2% Otic (0.25ML CONTAINER) L EAR SCH ×2 (09:25→21:22)
[2023-08-07] MEDS: Vancomycin 1 GM in Premix 1 BAG IVPB SCH (09:26)
[2023-08-07] MEDS: cefTRIAXone\\ROCEPHIN 1 GM in Sodium Chloride 0.9% 100 ML IVPB SCH (09:26)
[2023-08-07] MEDS: Sodium Chloride 0.9% 1,000 ML IV SCH ×3 (12:35→19:19)
[2023-08-07] MEDS ORDERED: Rocuronium Bromide 10 MG/ML (10ML VIAL) ONE (16:12)
[2023-08-07] MEDS ORDERED: fentaNYL PF 100 MCG/2 ML SYRINGE ONE (16:13)
[2023-08-07] MEDS ORDERED: CEFAZOLIN 2 GM VIAL ONE (16:18)
[2023-08-07] MEDS ORDERED: Sodium Chloride 0.9% 100 ML ONE (16:18)
[2023-08-07] MEDS ORDERED: PHENYLEPHRINE-NS 100 MCG/ML 10 ML SYRINGE ONE ×2 (16:26)
[2023-08-07] MEDS ORDERED: Ondansetron PF 4 MG/2 ML Vial ONE ×3 (16:26→18:01)
[2023-08-07] MEDS ORDERED: Dexamethasone 20 MG/5 ML VIAL ONE (16:26)
[2023-08-07] MEDS ORDERED: Lidocaine 2% 6 ML (Jelly) SYR ONE (16:30)
[2023-08-07] MEDS ORDERED: Vancomycin 1 GM VIAL ONE (16:58)
[2023-08-07] MEDS ORDERED: Dexamethasone 4 mg/ml Vial ONE (17:01)
[2023-08-07] MEDS ORDERED: Ondansetron HCl/PF 4 MG/2 ML Vial IVP PRN (18:03)
[2023-08-07] MEDS ORDERED: fentaNYL 50 mcg/mL 1 mL Vial ONE (18:09)
[2023-08-07] MEDS: Rosuvastatin 20 MG TAB PO SCH (21:22)
[2023-08-08] MEDS: Acetaminophen 500 MG TAB PO SCH ×5 (00:32→23:07)
[2023-08-08] MEDS: Sodium Chloride 0.9% 1,000 ML IV SCH ×3 (03:07→19:26)
[2023-08-08 05:39] LABS: #Basophils 0.1 thou/uL (0.0-0.2); #Monocytes 0.7 thou/uL (0.11-0.59); #Neutrophils 6.1 thou/uL (1.40-6.50); %Basophils 0.7 % (0.0-1.0); %Lymphocytes 6.5 % (21.0-51.0); %Monocytes 9.3 % (0.0-10.0); %Neutrophils 83.2 % (42.0-75.0); Hemoglobin 9.1 g/dL (12.0-16.0); Mean Corpuscular HGB CONC 29.4 g/dL (32.0-36.0); Mean Corpuscular Hemoglobin 23.6 pg (27.0-31.0); Mean Corpuscular Volume 80.5 fl (78.0-98.0); Mean Platelet Volume 9.7 fL (7.4-10.4); Platelet Count 249 10x3/uL (130-400); RBC Distribution Width 23.6 % (11.5-14.5); Red Blood Cell (RBC) Count 3.85 mill/uL (4.20-5.40); White Blood Cell (WBC) Count 7.4 10x3/uL (4.8-10.8)
[2023-08-08 06:02] LABS: Anion Gap 13 mmol/L (10-20); BUN (Urea Nitrogen) 21 mg/dL (9.8-20.1); Calc. Creatinine Clearance 55 mL/min (70-130); Calcium 8.5 mg/dL (7.8-10.44); Carbon Dioxide 20 mmol/L (23-31); Chloride 104 mmol/L (98-107); Estimated GFR 59; Glucose 183 mg/dL (80-115); Potassium 4.6 mmol/L (3.5-5.1); Sodium 132 mmol/L (136-145)
[2023-08-08] MEDS: cefTRIAXone\\ROCEPHIN 1 GM in Sodium Chloride 0.9% 100 ML IVPB SCH (09:05)
[2023-08-08] MEDS: DULoxetine 20 MG CAP PO SCH (09:11)
[2023-08-08] MEDS: Ranolazine 500 MG ER.TAB PO SCH ×2 (09:11→19:55)
[2023-08-08] MEDS: Magnesium Oxide 400 MG TAB PO SCH (09:11)
[2023-08-08] MEDS: Leflunomide 10 mg Tablet PO SCH (09:11)
[2023-08-08] MEDS: predniSONE 5 MG TAB PO SCH (09:15)
[2023-08-08 10:29] LABS: Vancomycin, Trough 18.8 ug/mL
[2023-08-08] MEDS: Vancomycin 1 GM in Premix 1 BAG IVPB SCH (10:38)
[2023-08-08] MEDS: Ciprofloxacin 0.2% Otic (0.25ML CONTAINER) L EAR SCH ×2 (14:11→19:55)
[2023-08-08] MEDS: traMADol HCl 50 MG TAB PO PRN (19:55)
[2023-08-08] MEDS: Rosuvastatin 20 MG TAB PO SCH (19:55)
[2023-08-08] MEDS ORDERED: cefTRIAXone\\ROCEPHIN 2 GM in Sodium Chloride 0.9% 100 ML IVPB SCH (22:00)
[2023-08-09] MEDS: Sodium Chloride 0.9% 1,000 ML IV SCH ×3 (05:35→17:44)
[2023-08-09] MEDS: Acetaminophen 500 MG TAB PO SCH ×4 (06:53→23:59)
[2023-08-09] MEDS: Vancomycin 1 GM in Premix 1 BAG IVPB SCH (09:17)
[2023-08-09] MEDS: Prasugrel 10 MG TAB PO SCH (09:17)
[2023-08-09] MEDS: Ranolazine 500 MG ER.TAB PO SCH ×2 (09:18→21:01)
[2023-08-09] MEDS: Potassium Chloride 20 MEQ TAB PO SCH (09:18)
[2023-08-09] MEDS: DULoxetine 20 MG CAP PO SCH (09:18)
[2023-08-09] MEDS: Spironolactone 25 MG TAB PO SCH (09:18)
[2023-08-09] MEDS: Aspirin 81 mg Enteric Coated Tablet PO SCH (09:18)
[2023-08-09] MEDS: Ciprofloxacin 0.2% Otic (0.25ML CONTAINER) L EAR SCH ×2 (09:18→21:02)
[2023-08-09] MEDS: Leflunomide 10 mg Tablet PO SCH (09:19)
[2023-08-09] MEDS: predniSONE 5 MG TAB PO SCH (09:19)
[2023-08-09] MEDS: Furosemide 40 MG TAB PO SCH (09:19)
[2023-08-09] MEDS: Magnesium Oxide 400 MG TAB PO SCH (09:20)
[2023-08-09] MEDS: traMADol HCl 50 MG TAB PO PRN (09:30)
[2023-08-09] MEDS: Cefepime 2 GM in Sodium Chloride 0.9% 100 ML IVPB SCH (21:00)
[2023-08-09] MEDS: Rosuvastatin 20 MG TAB PO SCH (21:01)
[2023-08-10] MEDS: Sodium Chloride 0.9% 1,000 ML IV SCH ×3 (01:11→18:59)
[2023-08-10 05:23] LABS: #Basophils 0.1 thou/uL (0.0-0.2); #Eosinphils 0.1 thou/uL (0.0-0.7); #Monocytes 0.7 thou/uL (0.11-0.59); #Neutrophils 4.1 thou/uL (1.40-6.50); %Basophils 1.4 % (0.0-1.0); %Eosinophils 1.1 % (0.0-10.0); %Lymphocytes 22.4 % (21.0-51.0); %Monocytes 11.2 % (0.0-10.0); %Neutrophils 63.7 % (42.0-75.0); Mean Corpuscular Hemoglobin 23.3 pg (27.0-31.0); Mean Corpuscular Volume 80.1 fl (78.0-98.0); Mean Platelet Volume 9.2 fL (7.4-10.4); Platelet Count 209 10x3/uL (130-400); RBC Distribution Width 24.6 % (11.5-14.5); Red Blood Cell (RBC) Count 3.87 mill/uL (4.20-5.40); White Blood Cell (WBC) Count 6.4 10x3/uL (4.8-10.8)
[2023-08-10 06:01] LABS: Anion Gap 12 mmol/L (10-20); BUN (Urea Nitrogen) 15 mg/dL (9.8-20.1); Calc. Creatinine Clearance 63 mL/min (70-130); Calcium 8.5 mg/dL (7.8-10.44); Carbon Dioxide 22 mmol/L (23-31); Chloride 104 mmol/L (98-107); Estimated GFR 70; Glucose 119 mg/dL (80-115); Magnesium 1.8 mg/dL (1.6-2.6); Phosphorus 2.5 mg/dL (2.3-4.7); Potassium 4.3 mmol/L (3.5-5.1); Sodium 134 mmol/L (136-145)
[2023-08-10 06:46] LABS: Anisocytosis SLIGHT = 6-15 cells HPF (0-5); CellaVision Operator ID LAB.JMM; Macrocytosis SLIGHT = 6-15 cells HPF (0-5); Microcytosis SLIGHT = 6-15 cells HPF (0-5); Platelet Adequacy Comment Platelets Normal; Polychromasia SLIGHT = 2-3 cells HPF (0-2)
[2023-08-10] MEDS: Acetaminophen 500 MG TAB PO SCH ×3 (06:52→18:59)
[2023-08-10] MEDS: Prasugrel 10 MG TAB PO SCH (09:00)
[2023-08-10] MEDS: DULoxetine 20 MG CAP PO SCH (09:00)
[2023-08-10] MEDS: Aspirin 81 mg Enteric Coated Tablet PO SCH (09:00)
[2023-08-10] MEDS: Leflunomide 10 mg Tablet PO SCH (09:01)
[2023-08-10] MEDS: Spironolactone 25 MG TAB PO SCH (09:01)
[2023-08-10] MEDS: Ciprofloxacin 0.2% Otic (0.25ML CONTAINER) L EAR SCH ×2 (09:01→20:15)
[2023-08-10] MEDS: Cefepime 2 GM in Sodium Chloride 0.9% 100 ML IVPB SCH ×2 (09:02→20:11)
[2023-08-10] MEDS: Furosemide 40 MG TAB PO SCH (09:02)
[2023-08-10] MEDS: Ranolazine 500 MG ER.TAB PO SCH ×2 (09:02→20:11)
[2023-08-10] MEDS: Potassium Chloride 20 MEQ TAB PO SCH (09:02)
[2023-08-10] MEDS: traMADol HCl 50 MG TAB PO PRN (09:02)
[2023-08-10] MEDS: Magnesium Oxide 400 MG TAB PO SCH (09:02)
[2023-08-10] MEDS: predniSONE 5 MG TAB PO SCH (09:03)
[2023-08-10] MEDS: Rosuvastatin 20 MG TAB PO SCH (20:11)
[2023-08-10] MEDS ORDERED: Bisacodyl 5 MG TAB PO PRN (23:49)
[2023-08-11] MEDS: Acetaminophen 500 MG TAB PO SCH ×4 (01:13→17:59)
[2023-08-11] MEDS: Sodium Chloride 0.9% 1,000 ML IV SCH ×3 (01:14→17:58)
[2023-08-11] MEDS: Prasugrel 10 MG TAB PO SCH (09:24)
[2023-08-11] MEDS: Spironolactone 25 MG TAB PO SCH (09:25)
[2023-08-11] MEDS: DULoxetine 20 MG CAP PO SCH (09:26)
[2023-08-11] MEDS: Magnesium Oxide 400 MG TAB PO SCH (09:26)
[2023-08-11] MEDS: Senokot S 8.6-50 MG TAB PO SCH ×2 (09:26→20:38)
[2023-08-11] MEDS: Ranolazine 500 MG ER.TAB PO SCH ×2 (09:26→20:36)
[2023-08-11] MEDS: predniSONE 5 MG TAB PO SCH (09:26)
[2023-08-11] MEDS: Leflunomide 10 mg Tablet PO SCH (09:27)
[2023-08-11] MEDS: Potassium Chloride 20 MEQ TAB PO SCH (09:27)
[2023-08-11] MEDS: Furosemide 40 MG TAB PO SCH (09:27)
[2023-08-11] MEDS: Aspirin 81 mg Enteric Coated Tablet PO SCH (09:28)
[2023-08-11] MEDS: Ciprofloxacin 0.2% Otic (0.25ML CONTAINER) L EAR SCH ×2 (09:29→20:38)
[2023-08-11] MEDS: Cefepime 2 GM in Sodium Chloride 0.9% 100 ML IVPB SCH ×2 (09:30→20:36)
[2023-08-11] MEDS: traMADol HCl 50 MG TAB PO PRN ×2 (09:45→20:37)
[2023-08-11] MEDS: Rosuvastatin 20 MG TAB PO SCH (20:36)
[2023-08-12] MEDS: Acetaminophen 500 MG TAB PO SCH ×3 (04:17→16:20)
[2023-08-12] MEDS: Sodium Chloride 0.9% 1,000 ML IV SCH ×2 (04:17→09:44)
[2023-08-12] MEDS: Cefepime 2 GM in Sodium Chloride 0.9% 100 ML IVPB SCH (09:35)
[2023-08-12] MEDS: traMADol HCl 50 MG TAB PO PRN (09:36)
[2023-08-12] MEDS: Potassium Chloride 20 MEQ TAB PO SCH (09:36)
[2023-08-12] MEDS: Magnesium Oxide 400 MG TAB PO SCH (09:36)
[2023-08-12] MEDS: Prasugrel 10 MG TAB PO SCH (09:36)
[2023-08-12] MEDS: DULoxetine 20 MG CAP PO SCH (09:36)
[2023-08-12] MEDS: Spironolactone 25 MG TAB PO SCH (09:37)
[2023-08-12] MEDS: Furosemide 40 MG TAB PO SCH (09:37)
[2023-08-12] MEDS: Ranolazine 500 MG ER.TAB PO SCH (09:37)
[2023-08-12] MEDS: Leflunomide 10 mg Tablet PO SCH (09:37)
[2023-08-12] MEDS: Aspirin 81 mg Enteric Coated Tablet PO SCH (09:39)
[2023-08-12] MEDS: predniSONE 5 MG TAB PO SCH (09:43)
[2023-08-12] MEDS: Senokot S 8.6-50 MG TAB PO SCH (09:43)
[2023-08-12 15:56] VITALS: BP 115/72; TEMP 97.4
== END 2023-08-12 17:31 | DRG 481 ==
LOC: SURG A 20:18 → OBSVTOIN 20:38
PROVIDERS: ADMIT Surgery; ATTEND Surgery
PROC: 0SB90ZZ Excision of Right Hip Joint, Open Approach (ICD-10-PCS; principal; 2023-08-07)
PROC: 02HV33Z Insertion of Infusion Device into Superior Vena Cava, Percutaneous Approach (ICD-10-PCS; 2023-08-12)
PROC: B5181ZA Fluoroscopy of Superior Vena Cava using Low Osmolar Contrast, Guidance (ICD-10-PCS; 2023-08-12)
PROC: 3E04329 Introduction of Other Anti-infective into Central Vein, Percutaneous Approach (ICD-10-PCS; 2023-08-12)
DX: T84.51XA Infection and inflammatory reaction due to internal right hip prosthesis, initial encounter (principal); I50.32 Chronic diastolic (congestive) heart failure; T81.49XA Infection following a procedure, other surgical site, initial encounter; M00.851 Arthritis due to other bacteria, right hip; T81.31XA Disruption of external operation (surgical) wound, not elsewhere classified, initial encounter; N17.9 Acute kidney failure, unspecified; M06.9 Rheumatoid arthritis, unspecified; I25.10 Atherosclerotic heart disease of native coronary artery without angina pectoris; H92.02 Otalgia, left ear; E11.40 Type 2 diabetes mellitus with diabetic neuropathy, unspecified; B96.5 Pseudomonas (aeruginosa) (mallei) (pseudomallei) as the cause of diseases classified elsewhere; I11.0 Hypertensive heart disease with heart failure; E78.5 Hyperlipidemia, unspecified; Z96.641 Presence of right artificial hip joint; Z95.1 Presence of aortocoronary bypass graft; Z98.890 Other specified postprocedural states; Z90.710 Acquired absence of both cervix and uterus; Z95.810 Presence of automatic (implantable) cardiac defibrillator; Z88.5 Allergy status to narcotic agent; Z87.891 Personal history of nicotine dependence; Z90.49 Acquired absence of other specified parts of digestive tract; Y83.8 Other surgical procedures as the cause of abnormal reaction of the patient, or of later complication, without mention of misadventure at the time of the procedure
CPT/HCPCS: 36415; 36569; 71045; 80048; 80202; 83735; 83880; 84100; 84484; 85025; 85610; 85730; 86140; 86850; 86900; 86901; 87070; 87077; 87186; 87205; 93005; 93010; C1751; J0692; J0696; J1100; J1650; J2405; J3010; J3260; J3370; J3370-JW; J3490; J7050; J7512; Q0162

== ENCOUNTER 2024-01-10 19:39 | Inpatient (IN) | payer OTHER, MEDICAID ==
[2024-01-10] MEDS ORDERED: Cefepime 2 GM VIAL ONE (21:12)
[2024-01-10] MEDS ORDERED: Sodium Chloride 0.9% 100 ML ONE (21:12)
[2024-01-10] MEDS ORDERED: Vancomycin 1 GM/200 ML (FROZEN) BAG ONE (21:48)
[2024-01-10] MEDS ORDERED: Ipratropium/Albuterol 3 ML NEB EZPAP PRN (23:01)
[2024-01-11 00:16] VITALS: BMI 27.9
[2024-01-11] MEDS: DOBUTamine 500 mg/250 ml 250 ML IVPB SCH ×2 (00:48→06:42)
[2024-01-11] MEDS: Vancomycin 1 GM in Premix 1 BAG IVPB SCH (02:23)
[2024-01-11] MEDS: Furosemide 20 MG (2 mL) VIAL SLOW IVP SCH ×2 (04:01→06:46)
[2024-01-11 05:58] LABS: Influenza A by NAA Not Detected (NotDetected); Influenza B by NAA Not Detected (NotDetected); SARS-CoV-2 NAA Rapid Test Not Detected (NotDetected)
[2024-01-11 06:38] LABS: Hematocrit 26.3 % (36.0-47.0); Hemoglobin 7.9 g/dL (12.0-16.0); Mean Corpuscular Hemoglobin 23.5 pg (27.0-31.0); Mean Corpuscular Volume 78.3 fL (78.0-98.0); Mean Platelet Volume 11.7 fL (7.4-10.4); Platelet Count 121 10x3/uL (130-400); RBC Distribution Width 21.5 % (11.5-14.5); Red Blood Cell (RBC) Count 3.36 mill/uL (4.20-5.40)
[2024-01-11] MEDS: Midodrine HCl 5 MG TAB PO SCH (06:43)
[2024-01-11 06:50] LABS: Anion Gap 13 mmol/L (10-20); BUN (Urea Nitrogen) 18 mg/dL (9.8-20.1); Calc. Creatinine Clearance 57 mL/min (70-130); Calcium 8.2 mg/dL (7.8-10.44); Carbon Dioxide 19 mmol/L (23-31); Chloride 111 mmol/L (98-107); Estimated GFR 56; Glucose 67 mg/dL (80-115); Magnesium 1.7 mg/dL (1.6-2.6); Potassium 3.7 mmol/L (3.5-5.1); Sodium 139 mmol/L (136-145)
[2024-01-11 06:51] LABS: Anisocytosis SLIGHT = 6-15 cells HPF (0-5); Band 4 % (5-11); Hypochromia SLIGHT = 6-15 cells HPF (0-5); Large Platelets 12.2 % (0-5); Lymphocytes 23 % (21-51); Microcytosis SLIGHT = 6-15 cells HPF (0-5); Monocytes 1 % (0-10); Neutrophil 68 % (42-75); Platelet Adequacy Comment Platelets Decreased; Polychromasia SLIGHT = 2-3 cells HPF (0-2); Reactive Lymphocytes 3 % (0-10); Smudge Cells 31.1 %
[2024-01-11] MEDS ORDERED: Magnesium 2 GM/50 ML(in water) 2 GM in Premix 1 BAG IVPB SCH (09:00)
[2024-01-11] MEDS: Pantoprazole DR 40 MG TAB PO SCH (09:53)
[2024-01-11] MEDS: Hydroxychloroquine Sulfate 200 MG TAB PO SCH (09:53)
[2024-01-11] MEDS: Empagliflozin 10 MG TAB PO SCH (09:53)
[2024-01-11] MEDS: Ezetimibe 10 MG TAB PO SCH (09:53)
[2024-01-11] MEDS: Ranolazine ER 500 MG TAB PO SCH (09:53)
[2024-01-11] MEDS: Cefepime 1 GM in Sodium Chloride 0.9% 100 ML IVPB SCH (09:54)
[2024-01-11] MEDS: Magnesium 2 GM/50 ML(in water) 2 GM in Premix 1 BAG IVPB SCH (09:54)
[2024-01-11] MEDS: DULoxetine 20 MG CAP PO SCH (09:54)
[2024-01-11] MEDS ORDERED: Furosemide 100 MG in Sodium Chloride 0.9% 100 ML IVPB SCH (11:15)
[2024-01-11] MEDS: Furosemide 100 MG, Admixture Fee 1 EACH in Sodium Chloride 0.9% 90 ML IVPB SCH (13:00)
[2024-01-11] MEDS: Rosuvastatin 20 MG TAB PO SCH (20:19)
[2024-01-11] MEDS: Vancomycin (BATCH) 1.5 GM in Premix 1 BAG IVPB SCH (21:22)
[2024-01-12 05:53] LABS: #Basophils 0.04 10x3/uL (0.0-0.2); %Basophils 0.8 % (0.0-1.0); %Eosinophils 2.1 % (0.0-10.0); %Lymphocytes 37.6 % (21.0-51.0); %Monocytes 8.7 % (0.0-10.0); %Neutrophils 50.6 % (42.0-75.0); Hematocrit 28.3 % (36.0-47.0); Hemoglobin 8.3 g/dL (12.0-16.0); Mean Corpuscular HGB CONC 29.3 g/dL (32.0-36.0); Mean Corpuscular Hemoglobin 24.2 pg (27.0-31.0); Mean Corpuscular Volume 82.5 fL (78.0-98.0); Mean Platelet Volume 11.6 fL (7.4-10.4); Platelet Count 140 10x3/uL (130-400); Red Blood Cell (RBC) Count 3.43 mill/uL (4.20-5.40)
[2024-01-12 06:17] LABS: Vancomycin, Random 31.4 ug/mL (See Comment)
[2024-01-12 06:18] LABS: Globulin 2.7 g/dL (2.4-3.5)
[2024-01-12 06:22] LABS: ALT (SGPT) 21 U/L (8-55); AST (SGOT) 29 U/L (5-34); Albumin 2.3 g/dL (3.4-4.8); Alkaline Phosphatase 74 U/L (40-110); Anion Gap 14 mmol/L (10-20); BUN (Urea Nitrogen) 12 mg/dL (9.8-20.1); Bilirubin, Total 0.5 mg/dL (0.2-1.2); Calc. Creatinine Clearance 114 mL/min (70-130); Carbon Dioxide 19 mmol/L (23-31); Chloride 107 mmol/L (98-107); Estimated GFR 72; Glucose 87 mg/dL (80-115); Magnesium 1.8 mg/dL (1.6-2.6); Potassium 3.4 mmol/L (3.5-5.1); Sodium 137 mmol/L (136-145)
[2024-01-12] MEDS: Saccharomyces boulardii 250 MG CAP PO SCH (10:09)
[2024-01-12] MEDS: Prasugrel 10 MG TAB PO SCH (10:09)
[2024-01-12] MEDS: Aspirin Chewable 81 MG TAB PO SCH (10:09)
[2024-01-12] MEDS: Potassium Chloride 20 MEQ TAB PO SCH ×2 (10:11→18:04)
[2024-01-12] MEDS ORDERED: ADMIXTURE FEE IVPB SCH (14:54)
[2024-01-12] MEDS ORDERED: FUROSEMIDE IVPB SCH (14:54)
[2024-01-12] MEDS ORDERED: SODIUM CHLORIDE IVPB SCH (14:54)
[2024-01-12] MEDS: Loperamide HCl 2 MG CAP PO PRN (15:41)
[2024-01-12] MEDS: Magnesium 2 GM/50 ML(in water) 2 GM in Premix 1 BAG IVPB SCH (15:42)
[2024-01-12] MEDS: DOBUTamine 500 mg/250 ml 250 ML IVPB SCH (18:08)
[2024-01-12] MEDS: Cefepime 2 GM in Sodium Chloride 0.9% 100 ML IVPB SCH (19:54)
[2024-01-12] MEDS: Furosemide 100 MG, Admixture Fee 1 EACH in Sodium Chloride 0.9% 90 ML IVPB SCH (22:33)
[2024-01-12] MEDS: Acetaminophen 325 MG TAB PO PRN (23:12)
[2024-01-13 05:56] LABS: Hematocrit 31.2 % (36.0-47.0); Hemoglobin 9.2 g/dL (12.0-16.0); Mean Corpuscular HGB CONC 29.5 g/dL (32.0-36.0); Mean Corpuscular Hemoglobin 23.7 pg (27.0-31.0); Mean Corpuscular Volume 80.4 fL (78.0-98.0); Mean Platelet Volume 11.2 fL (7.4-10.4); Platelet Count 140 10x3/uL (130-400); RBC Distribution Width 21.7 % (11.5-14.5); Red Blood Cell (RBC) Count 3.88 mill/uL (4.20-5.40)
[2024-01-13 06:25] LABS: Anion Gap 14 mmol/L (10-20); BUN (Urea Nitrogen) 13 mg/dL (9.8-20.1); Calc. Creatinine Clearance 104 mL/min (70-130); Calcium 8.3 mg/dL (7.8-10.44); Carbon Dioxide 22 mmol/L (23-31); Chloride 105 mmol/L (98-107); Estimated GFR 64; Glucose 96 mg/dL (80-115); Magnesium 2.1 mg/dL (1.6-2.6); Sodium 137 mmol/L (136-145)
[2024-01-13 06:55] LABS: Anisocytosis SLIGHT = 6-15 cells HPF (0-5); Band 3 % (5-11); Hypochromia SLIGHT = 6-15 cells HPF (0-5); Large Platelets 10.6 % (0-5); Lymphocytes 36 % (21-51); Microcytosis SLIGHT = 6-15 cells HPF (0-5); Monocytes 6 % (0-10); Neutrophil 50 % (42-75); Ovalocytes SLIGHT = 2-5 cells HPF (0-1); Platelet Adequacy Comment Platelets Normal; Polychromasia SLIGHT = 2-3 cells HPF (0-2); Reactive Lymphocytes 2 % (0-10); Smudge Cells 27.9 %
[2024-01-13] MEDS: DULoxetine 20 MG CAP PO SCH (08:36)
[2024-01-13] MEDS: Ondansetron PF 4 MG/2 ML Vial IVP PRN (09:21)
[2024-01-13] MEDS: Sodium Ferric Gluconate 250 MG in Sodium Chloride 0.9% 250 ML 250 ML IVPB SCH (11:31)
[2024-01-13] MEDS ORDERED: Ketamine In 0.9 % NaCl 50 MG/5 ML SYRINGE ONE (13:06)
[2024-01-13] MEDS ORDERED: Etomidate 40 MG (20 mL) VIAL ONE (13:13)
[2024-01-13] MEDS ORDERED: Lidocaine 2% PF 5 ML VIAL ONE (13:15)
[2024-01-13] MEDS ORDERED: Rocuronium Bromide 10 MG/ML (10ML VIAL) ONE (13:15)
[2024-01-13] MEDS ORDERED: Ondansetron PF 4 MG/2 ML Vial ONE ×2 (13:15→16:04)
[2024-01-13] MEDS ORDERED: Vecuronium 10 MG VIAL ONE (13:30)
[2024-01-13] MEDS ORDERED: Calcium Chloride 1 GM/10 ML Abboject SYRINGE ONE (13:30)
[2024-01-13] MEDS ORDERED: Dexamethasone 20 MG/5 ML VIAL ONE (13:30)
[2024-01-13] MEDS ORDERED: Esmolol 100 MG/10 ML VIAL ONE (13:30)
[2024-01-13] MEDS ORDERED: fentaNYL 50 mcg/mL 1 mL Vial ONE (14:05)
[2024-01-13] MEDS ORDERED: PHENYLEPHRINE-NS 100 MCG/ML 10 ML SYRINGE ONE (14:12)
[2024-01-13] MEDS ORDERED: ePHEDrine Sulfate 50 MG/10 ML VIAL ONE (14:14)
[2024-01-13] MEDS ORDERED: Sodium Chloride 0.9% 100 ML ONE (14:25)
[2024-01-13] MEDS ORDERED: SUGAMMADEX SODIUM 200 MG/2 ML VIAL ONE (14:28)
[2024-01-13] MEDS ORDERED: Tobramycin Sulfate 1.2 GM VIAL ONE ×2 (14:35→14:55)
[2024-01-13] MEDS ORDERED: Vancomycin 1 GM VIAL ONE (14:35)
[2024-01-13] MEDS ORDERED: Vasopressin 20 UNITS/ML VIAL ONE (14:48)
[2024-01-13] MEDS ORDERED: NOREPINEPHRINE 8 MG/250 ML-D5W 250 ML ONE (15:06)
[2024-01-13] MEDS ORDERED: Ondansetron HCl/PF 4 MG/2 ML Vial IVP PRN (15:16)
[2024-01-13] MEDS ORDERED: Promethazine HCl 25 MG/ML VIAL IM PRN (15:16)
[2024-01-13] MEDS ORDERED: fentaNYL PF 100 MCG/2 ML SYRINGE ONE (16:04)
[2024-01-13] MEDS ORDERED: Promethazine HCl 25 MG/ML VIAL ONE (16:33)
[2024-01-14] MEDS: Ketorolac Tromethamine 30 MG (1 mL) VIAL IVP SCH (00:53)
[2024-01-14] MEDS: Naproxen 500 MG TAB PO PRN (02:15)
[2024-01-14 09:55] LABS: Hematocrit 26.6 % (36.0-47.0); Hemoglobin 7.7 g/dL (12.0-16.0); Mean Corpuscular HGB CONC 28.9 g/dL (32.0-36.0); Mean Corpuscular Hemoglobin 23.5 pg (27.0-31.0); Mean Corpuscular Volume 81.3 fL (78.0-98.0); Mean Platelet Volume 11.2 fL (7.4-10.4); Platelet Count 112 10x3/uL (130-400); RBC Distribution Width 21.5 % (11.5-14.5); Red Blood Cell (RBC) Count 3.27 mill/uL (4.20-5.40)
[2024-01-14 10:42] LABS: Band 22 % (5-11); Lymphocytes 21 % (21-51); Monocytes 7 % (0-10); Neutrophil 51 % (42-75); Platelet Adequacy Comment Platelets Decreased; Schistocytes SLIGHT = 2-5 cells HPF (0-1)
[2024-01-14] MEDS: Lidocaine 2% Viscous Solution 10 ML, Aluminum & Magnesium Hydroxide 30 ML SSW SCH (21:12)
[2024-01-15 06:15] LABS: Hematocrit 23.9 % (36.0-47.0); Hemoglobin 7.1 g/dL (12.0-16.0); Mean Corpuscular HGB CONC 29.7 g/dL (32.0-36.0); Mean Corpuscular Hemoglobin 23.6 pg (27.0-31.0); Mean Corpuscular Volume 79.4 fL (78.0-98.0); Mean Platelet Volume 10.8 fL (7.4-10.4); Platelet Count 129 10x3/uL (130-400); RBC Distribution Width 21.3 % (11.5-14.5); Red Blood Cell (RBC) Count 3.01 mill/uL (4.20-5.40)
[2024-01-15 06:45] LABS: Anisocytosis SLIGHT = 6-15 cells HPF (0-5); Band 8 % (5-11); Hypochromia SLIGHT = 6-15 cells HPF (0-5); Lymphocytes 26 % (21-51); Microcytosis SLIGHT = 6-15 cells HPF (0-5); Monocytes 5 % (0-10); Neutrophil 57 % (42-75); Platelet Adequacy Comment Platelets Normal; Polychromasia SLIGHT = 2-3 cells HPF (0-2); Reactive Lymphocytes 4 % (0-10); Tear Drops SLIGHT = 2-5 cells HPF (0-1)
[2024-01-15 06:46] LABS: Anion Gap 13 mmol/L (10-20); BUN (Urea Nitrogen) 19 mg/dL (9.8-20.1); Calc. Creatinine Clearance 60 mL/min (70-130); Calcium 8.3 mg/dL (7.8-10.44); Carbon Dioxide 24 mmol/L (23-31); Chloride 102 mmol/L (98-107); Estimated GFR 66; Glucose 86 mg/dL (80-115); Potassium 4.3 mmol/L (3.5-5.1); Sodium 135 mmol/L (136-145)
[2024-01-15] MEDS: Cyclobenzaprine 10 MG TAB PO PRN (10:19)
[2024-01-15] MEDS: DOBUTamine 500 mg/250 ml 250 ML IVPB SCH (18:42)
[2024-01-15] MEDS: Furosemide 40 MG (4 mL) VIAL SLOW IVP SCH (18:44)
[2024-01-16 06:22] LABS: Hematocrit 30.1 % (36.0-47.0); Hemoglobin 9.2 g/dL (12.0-16.0); Mean Corpuscular HGB CONC 30.6 g/dL (32.0-36.0); Mean Corpuscular Hemoglobin 24.7 pg (27.0-31.0); Mean Corpuscular Volume 80.7 fL (78.0-98.0); Mean Platelet Volume 10.4 fL (7.4-10.4); Platelet Count 131 10x3/uL (130-400); RBC Distribution Width 19.6 % (11.5-14.5); Red Blood Cell (RBC) Count 3.73 mill/uL (4.20-5.40)
[2024-01-16 06:37] LABS: Anion Gap 14 mmol/L (10-20); BUN (Urea Nitrogen) 23 mg/dL (9.8-20.1); Calc. Creatinine Clearance 57 mL/min (70-130); Calcium 7.8 mg/dL (7.8-10.44); Carbon Dioxide 24 mmol/L (23-31); Chloride 102 mmol/L (98-107); Estimated GFR 62; Glucose 76 mg/dL (80-115); Sodium 136 mmol/L (136-145)
[2024-01-16 06:56] LABS: Anisocytosis SLIGHT = 6-15 cells HPF (0-5); Band 12 % (5-11); Eosinophils 1 % (0-10); Hypochromia SLIGHT = 6-15 cells HPF (0-5); Lymphocytes 17 % (21-51); Microcytosis SLIGHT = 6-15 cells HPF (0-5); Monocytes 8 % (0-10); Neutrophil 59 % (42-75); Platelet Adequacy Comment Platelets Normal; Polychromasia SLIGHT = 2-3 cells HPF (0-2); Reactive Lymphocytes 1 % (0-10)
[2024-01-16 13:43] VITALS: BMI 25.7
[2024-01-16] MEDS: Furosemide 40 MG (4 mL) VIAL SLOW IVP SCH (17:26)
[2024-01-16] MEDS ORDERED: traMADol HCl 50 MG TAB PO PRN (20:35)
[2024-01-16] MEDS ORDERED: fentaNYL 50 mcg/mL 1 mL Vial SLOW IVP PRN (21:14)
[2024-01-17 05:44] LABS: #Basophils 0.06 10x3/uL (0.0-0.2); #Eosinphils 0.07 10x3/uL (0.0-0.7); #Monocytes 0.59 10x3/uL (0.11-0.59); #Neutrophils 3.03 10x3/uL (1.40-6.50); %Basophils 0.8 % (0.0-1.0); %Lymphocytes 48.3 % (21.0-51.0); %Neutrophils 41.4 % (42.0-75.0); Hematocrit 31.5 % (36.0-47.0); Hemoglobin 9.9 g/dL (12.0-16.0); Mean Corpuscular HGB CONC 31.4 g/dL (32.0-36.0); Mean Corpuscular Hemoglobin 25.4 pg (27.0-31.0); Mean Corpuscular Volume 80.8 fL (78.0-98.0); Mean Platelet Volume 10.9 fL (7.4-10.4); Platelet Count 142 10x3/uL (130-400); RBC Distribution Width 20.1 % (11.5-14.5); White Blood Cell (WBC) Count 7.33 10x3/uL (4.8-10.8)
[2024-01-17 06:33] LABS: Calcium 8.1 mg/dL (7.8-10.44); Chloride 101 mmol/L (98-107); Potassium 3.8 mmol/L (3.5-5.1); Sodium 137 mmol/L (136-145)
[2024-01-17 06:34] LABS: Glucose 83 mg/dL (80-115)
[2024-01-17 06:35] LABS: Anion Gap 14 mmol/L (10-20); Carbon Dioxide 26 mmol/L (23-31)
[2024-01-17 06:38] LABS: BUN (Urea Nitrogen) 21 mg/dL (9.8-20.1); Calc. Creatinine Clearance 58 mL/min (70-130); Estimated GFR 55
[2024-01-17] MEDS: Furosemide 40 MG (4 mL) VIAL SLOW IVP SCH (14:10)
[2024-01-18 05:17] LABS: Hematocrit 32.5 % (36.0-47.0); Hemoglobin 10.1 g/dL (12.0-16.0); Mean Corpuscular HGB CONC 31.1 g/dL (32.0-36.0); Mean Corpuscular Hemoglobin 25.4 pg (27.0-31.0); Mean Corpuscular Volume 81.7 fL (78.0-98.0); Mean Platelet Volume 10.4 fL (7.4-10.4); Platelet Count 144 10x3/uL (130-400); RBC Distribution Width 20.3 % (11.5-14.5); Red Blood Cell (RBC) Count 3.98 mill/uL (4.20-5.40)
[2024-01-18 05:25] LABS: Anion Gap 14 mmol/L (10-20); BUN (Urea Nitrogen) 24 mg/dL (9.8-20.1); Calc. Creatinine Clearance 50 mL/min (70-130); Calcium 7.9 mg/dL (7.8-10.44); Carbon Dioxide 28 mmol/L (23-31); Chloride 99 mmol/L (98-107); Estimated GFR 46; Glucose 99 mg/dL (80-115); Potassium 3.6 mmol/L (3.5-5.1); Sodium 137 mmol/L (136-145)
[2024-01-18 06:13] LABS: Anisocytosis MODERATE=16-30 cells HPF (0-5); Band 19 % (5-11); Lymphocytes 33 % (21-51); Macrocytosis SLIGHT = 6-15 cells HPF (0-5); Microcytosis SLIGHT = 6-15 cells HPF (0-5); Monocytes 8 % (0-10); Neutrophil 38 % (42-75); Ovalocytes SLIGHT = 2-5 cells HPF (0-1); Platelet Adequacy Comment Platelets Normal; Polychromasia MODERATE = 3-4 cells HPF (0-2); Reactive Lymphocytes 3 % (0-10); Smudge Cells 6.9 %
[2024-01-19 04:34] LABS: Hematocrit 33.5 % (36.0-47.0); Hemoglobin 10.2 g/dL (12.0-16.0); Mean Corpuscular HGB CONC 30.4 g/dL (32.0-36.0); Mean Corpuscular Hemoglobin 24.3 pg (27.0-31.0); Mean Platelet Volume 10.3 fL (7.4-10.4); Platelet Count 143 10x3/uL (130-400); Red Blood Cell (RBC) Count 4.19 mill/uL (4.20-5.40)
[2024-01-19 05:00] LABS: Anion Gap 12 mmol/L (10-20); BUN (Urea Nitrogen) 19 mg/dL (9.8-20.1); Calc. Creatinine Clearance 74 mL/min (70-130); Calcium 7.8 mg/dL (7.8-10.44); Carbon Dioxide 26 mmol/L (23-31); Chloride 100 mmol/L (98-107); Estimated GFR 75; Glucose 84 mg/dL (80-115); Potassium 3.7 mmol/L (3.5-5.1); Sodium 134 mmol/L (136-145)
[2024-01-19 05:27] LABS: Band 28 % (5-11); Eosinophils 1 % (0-10); Hypochromia SLIGHT = 6-15 cells HPF (0-5); Large Platelets 9.8 % (0-5); Lymphocytes 28 % (21-51); Monocytes 8 % (0-10); Neutrophil 33 % (42-75); Platelet Adequacy Comment Platelets Normal; Polychromasia SLIGHT = 2-3 cells HPF (0-2)
[2024-01-19] MEDS: Furosemide 20 MG TAB PO SCH (11:06)
[2024-01-19 19:01] LABS: Bilirubin Negative (Negative); Blood, Urine Trace (Negative); Glucose, Urine (Dipstick) 500 mg/dL (Negative); Ketone, Urine Negative (Negative); Leukocyte Negative (Negative); Nitrite Negative (Negative); Protein, Urine (Dipstick) Negative (Neg-Trace); Urobilinogen 0.2 mg/dL (Less than 2); pH, Urine 6.5 (5.0-9.0)
[2024-01-19 19:04] LABS: Bacteria/HPF None Seen HPF (None Seen); CAUTI Indications for Culture Acute Hematuria; RBC/HPF 0-3 HPF (0-3); Squamous Epithelial 0-3 HPF (0-3); WBC/HPF 0-3 HPF (0-3)
[2024-01-19 19:05] LABS: Clarity Clear (Clear)
[2024-01-19 19:07] LABS: Urine Culture Reflex No No
[2024-01-20 05:54] LABS: #Basophils 0.07 10x3/uL (0.0-0.2); %Basophils 1.1 % (0.0-1.0); %Eosinophils 0.9 % (0.0-10.0); %Lymphocytes 50.2 % (21.0-51.0); %Monocytes 7.5 % (0.0-10.0); Hematocrit 33.4 % (36.0-47.0); Hemoglobin 10.1 g/dL (12.0-16.0); Mean Corpuscular HGB CONC 30.2 g/dL (32.0-36.0); Mean Corpuscular Hemoglobin 25.1 pg (27.0-31.0); Mean Corpuscular Volume 82.9 fL (78.0-98.0); Mean Platelet Volume 10.5 fL (7.4-10.4); Platelet Count 132 10x3/uL (130-400); RBC Distribution Width 20.3 % (11.5-14.5); Red Blood Cell (RBC) Count 4.03 mill/uL (4.20-5.40)
[2024-01-20 06:05] LABS: PTT 31.9 sec (22.9-36.1); Prothrombin Time 13.3 sec (12.0-14.7)
[2024-01-20 06:09] LABS: Anion Gap 14 mmol/L (10-20); BUN (Urea Nitrogen) 16 mg/dL (9.8-20.1); Calc. Creatinine Clearance 61 mL/min (70-130); Calcium 7.9 mg/dL (7.8-10.44); Carbon Dioxide 22 mmol/L (23-31); Chloride 101 mmol/L (98-107); Estimated GFR 70; Glucose 69 mg/dL (80-115); Potassium 3.7 mmol/L (3.5-5.1); Sodium 133 mmol/L (136-145)
[2024-01-20] MEDS: Furosemide 20 MG TAB PO SCH (09:15)
[2024-01-20 19:17] LABS: Bilirubin, Direct 0.3 mg/dL (0.1-0.3); Bilirubin, Total 0.6 mg/dL (0.2-1.2)
[2024-01-20 23:40] LABS: Iron 34 ug/dL (50-170)
[2024-01-20 23:55] LABS: Iron Binding Capacity, Total 239 mcg/dL (265-497)
[2024-01-21 04:12] LABS: Hematocrit 32.4 % (36.0-47.0); Hemoglobin 9.9 g/dL (12.0-16.0); Mean Corpuscular HGB CONC 30.6 g/dL (32.0-36.0); Mean Corpuscular Hemoglobin 24.4 pg (27.0-31.0); Mean Platelet Volume 10.7 fL (7.4-10.4); Platelet Count 129 10x3/uL (130-400); RBC Distribution Width 20.1 % (11.5-14.5); Red Blood Cell (RBC) Count 4.05 mill/uL (4.20-5.40)
[2024-01-21 04:28] LABS: Anion Gap 12 mmol/L (10-20); BUN (Urea Nitrogen) 13 mg/dL (9.8-20.1); Calc. Creatinine Clearance 63 mL/min (70-130); Calcium 7.9 mg/dL (7.8-10.44); Carbon Dioxide 24 mmol/L (23-31); Chloride 101 mmol/L (98-107); Estimated GFR 72; Glucose 76 mg/dL (80-115); Potassium 3.4 mmol/L (3.5-5.1); Sodium 134 mmol/L (136-145)
[2024-01-21 04:38] LABS: Band 27 % (5-11); Hypochromia SLIGHT = 6-15 cells HPF (0-5); Lymphocytes 30 % (21-51); Monocytes 7 % (0-10); Neutrophil 35 % (42-75); Platelet Adequacy Comment Platelets Normal; Polychromasia SLIGHT = 2-3 cells HPF (0-2)
[2024-01-21] MEDS ORDERED: Sodium Bicarbonate 2.5 MEQ/5 ML SDV ONE (13:31)
[2024-01-21] MEDS ORDERED: Lidocaine 1% PF 5 ML VIAL ONE (13:32)
[2024-01-21 15:52] VITALS: BP 111/62; TEMP 99.2
== END 2024-01-21 18:30 | disposition swing bed (61) | DRG 466 ==
LOC: ERS 19:39 → 2NO 22:15 → CCU 01-13 15:23 → IMCU/EMU 01-13 16:14 → 2NO 01-18 20:34
PROVIDERS: ADMIT Internal Medicine; ATTEND Hospitalist
PROC: 0SRR0J9 Replacement of Right Hip Joint, Femoral Surface with Synthetic Substitute, Cemented, Open Approach (ICD-10-PCS; principal; 2024-01-13)
PROC: 0SPR0JZ Removal of Synthetic Substitute from Right Hip Joint, Femoral Surface, Open Approach (ICD-10-PCS; 2024-01-13)
PROC: 3E033XZ Introduction of Vasopressor into Peripheral Vein, Percutaneous Approach (ICD-10-PCS; 2024-01-13)
PROC: 30233N1 Transfusion of Nonautologous Red Blood Cells into Peripheral Vein, Percutaneous Approach (ICD-10-PCS; 2024-01-15)
PROC: 02HV33Z Insertion of Infusion Device into Superior Vena Cava, Percutaneous Approach (ICD-10-PCS; 2024-01-21)
PROC: B5181ZA Fluoroscopy of Superior Vena Cava using Low Osmolar Contrast, Guidance (ICD-10-PCS; 2024-01-21)
PROC: 3E04329 Introduction of Other Anti-infective into Central Vein, Percutaneous Approach (ICD-10-PCS; 2024-01-21)
PROC: B548ZZA Ultrasonography of Superior Vena Cava, Guidance (ICD-10-PCS; 2024-01-21)
DX: T84.51XA Infection and inflammatory reaction due to internal right hip prosthesis, initial encounter (principal); I50.43 Acute on chronic combined systolic (congestive) and diastolic (congestive) heart failure; J96.01 Acute respiratory failure with hypoxia; I13.0 Hypertensive heart and chronic kidney disease with heart failure and stage 1 through stage 4 chronic kidney disease, or unspecified chronic kidney disease; N17.9 Acute kidney failure, unspecified; E87.20 Acidosis, unspecified; N18.30 Chronic kidney disease, stage 3 unspecified; I25.10 Atherosclerotic heart disease of native coronary artery without angina pectoris; E83.42 Hypomagnesemia; I25.5 Ischemic cardiomyopathy; I73.9 Peripheral vascular disease, unspecified; E78.5 Hyperlipidemia, unspecified; B96.5 Pseudomonas (aeruginosa) (mallei) (pseudomallei) as the cause of diseases classified elsewhere; M06.9 Rheumatoid arthritis, unspecified; D50.9 Iron deficiency anemia, unspecified; K21.9 Gastro-esophageal reflux disease without esophagitis; Z96.641 Presence of right artificial hip joint; Z88.5 Allergy status to narcotic agent; Z88.8 Allergy status to other drugs, medicaments and biological substances; Z79.899 Other long term (current) drug therapy; Z79.82 Long term (current) use of aspirin; Z90.49 Acquired absence of other specified parts of digestive tract; Z90.712 Acquired absence of cervix with remaining uterus; Z98.890 Other specified postprocedural states; Z95.1 Presence of aortocoronary bypass graft; Z87.891 Personal history of nicotine dependence; S72.21XD Displaced subtrochanteric fracture of right femur, subsequent encounter for closed fracture with routine healing
CPT/HCPCS: 36415; 36416; 36430; 36569; 71045; 72170; 76937; 77001; 80048; 80053; 80202; 81001; 82247; 82248; 82565; 83540; 83550; 83615; 83735; 83880; 85025; 85046; 85384; 85610; 85730; 86850; 86880; 86900; 86901; 87070; 87077; 87186; 87205; 87324; 87449; 96374; 96375; C1713; C1751; J0692; J1100; J1250; J1940; J2001; J2405; J2550; J2916; J3010; J3260; J3370; J3370-JW; J3475; J3490; J7050; P9016

== ENCOUNTER 2024-03-19 17:17 | Inpatient (IN) | payer OTHER, MEDICAID ==
[2024-03-19] MEDS ORDERED: Calcium Carbonate 500 MG ChewTAB PO PRN (17:54)
[2024-03-19] MEDS ORDERED: Senokot S 8.6-50 MG TAB PO PRN (17:54)
[2024-03-19] MEDS ORDERED: Ipratropium/Albuterol 3 ML NEB NEB PRN (17:55)
[2024-03-19] MEDS ORDERED: Glucagon 1 MG/ML KIT IM PRN (17:58)
[2024-03-19] MEDS ORDERED: Dextrose 5% in Water 1,000 ML IV PRN (17:58)
[2024-03-19] MEDS ORDERED: Dextrose 50% Abboject 50 ML SYRINGE SLOW IVP PRN (17:58)
[2024-03-19] MEDS ORDERED: Morphine 2 MG/ML VIAL SLOW IVP PRN ×2 (17:59→18:20)
[2024-03-19] MEDS ORDERED: Insulin Lispro 100 UNIT/ML 10 ML VIAL SC PRN ×2 (18:10→18:11)
[2024-03-19 18:12] VITALS: BMI 23.8
[2024-03-19] MEDS: Acetaminophen 325 MG TAB PO SCH (18:19)
[2024-03-19] MEDS: Rosuvastatin 20 MG TAB PO SCH (19:59)
[2024-03-19] MEDS: Ranolazine ER 500 MG TAB PO SCH (20:00)
[2024-03-19] MEDS: Hydroxychloroquine Sulfate 200 MG TAB PO SCH (20:00)
[2024-03-19] MEDS: traMADol HCl 50 MG TAB PO PRN (21:28)
[2024-03-19] MEDS: Cyclobenzaprine 10 MG TAB PO PRN (21:28)
[2024-03-19] MEDS: Ciprofloxacin 500 MG TAB PO SCH (21:31)
[2024-03-20 05:57] LABS: #Basophils 0.06 10x3/uL (0.0-0.2); %Basophils 1.3 % (0.0-1.0); %Eosinophils 2.4 % (0.0-10.0); %Lymphocytes 45.7 % (21.0-51.0); %Monocytes 9.8 % (0.0-10.0); %Neutrophils 40.2 % (42.0-75.0); Hematocrit 30.7 % (36.0-47.0); Hemoglobin 9.5 g/dL (12.0-16.0); Mean Corpuscular HGB CONC 30.9 g/dL (32.0-36.0); Mean Corpuscular Hemoglobin 26.2 pg (27.0-31.0); Mean Corpuscular Volume 84.8 fL (78.0-98.0); Mean Platelet Volume 10.8 fL (7.4-10.4); Platelet Count 141 10x3/uL (130-400); RBC Distribution Width 17.2 % (11.5-14.5); Red Blood Cell (RBC) Count 3.62 mill/uL (4.20-5.40)
[2024-03-20 06:19] LABS: ALT (SGPT) 10 U/L (8-55); AST (SGOT) 14 U/L (5-34); Alkaline Phosphatase 78 U/L (40-110); Anion Gap 13 mmol/L (10-20); BUN (Urea Nitrogen) 14 mg/dL (9.8-20.1); Bilirubin, Total 0.5 mg/dL (0.2-1.2); Calc. Creatinine Clearance 58 mL/min (70-130); Calcium 8.1 mg/dL (7.8-10.44); Carbon Dioxide 22 mmol/L (23-31); Chloride 108 mmol/L (98-107); Estimated GFR 70; Glucose 93 mg/dL (80-115); Potassium 4.1 mmol/L (3.5-5.1); Sodium 139 mmol/L (136-145)
[2024-03-20] MEDS: Ciprofloxacin 500 MG TAB PO SCH (06:21)
[2024-03-20] MEDS: Leflunomide 10 mg Tablet PO SCH (08:29)
[2024-03-20] MEDS: DULoxetine 20 MG CAP PO SCH (08:30)
[2024-03-20] MEDS: Enoxaparin 40 MG (0.4 mL) SYRINGE SC SCH (08:30)
[2024-03-20] MEDS: Empagliflozin 10 MG TAB PO SCH (08:30)
[2024-03-20] MEDS: Ezetimibe 10 MG TAB PO SCH (08:30)
[2024-03-20] MEDS: Furosemide 20 MG TAB PO SCH (08:30)
[2024-03-20] MEDS: Prasugrel 10 MG TAB PO SCH (08:34)
[2024-03-20] MEDS: Bisoprolol Fumarate 5 MG TAB PO SCH (08:34)
[2024-03-20] MEDS ORDERED: Hydroxychloroquine Sulfate 200 MG TAB PO SCH (09:00)
[2024-03-20] MEDS: Acetaminophen 500 MG TAB PO SCH (14:48)
[2024-03-21] MEDS: Ondansetron PF 4 MG/2 ML Vial IVP PRN (05:57)
[2024-03-21 06:05] LABS: #Basophils 0.06 10x3/uL (0.0-0.2); %Basophils 1.2 % (0.0-1.0); %Eosinophils 2.9 % (0.0-10.0); %Lymphocytes 39.6 % (21.0-51.0); %Monocytes 7.9 % (0.0-10.0); %Neutrophils 47.6 % (42.0-75.0); Hematocrit 33.5 % (36.0-47.0); Hemoglobin 10.4 g/dL (12.0-16.0); Mean Corpuscular Hemoglobin 26.8 pg (27.0-31.0); Mean Corpuscular Volume 86.3 fL (78.0-98.0); Mean Platelet Volume 10.3 fL (7.4-10.4); Platelet Count 144 10x3/uL (130-400); RBC Distribution Width 17.2 % (11.5-14.5); Red Blood Cell (RBC) Count 3.88 mill/uL (4.20-5.40)
[2024-03-21 06:30] VITALS: BMI 23.8
[2024-03-21 06:37] LABS: Anion Gap 8 mmol/L (10-20); BUN (Urea Nitrogen) 13 mg/dL (9.8-20.1); Calc. Creatinine Clearance 56 mL/min (70-130); Calcium 8.2 mg/dL (7.8-10.44); Carbon Dioxide 22 mmol/L (23-31); Chloride 108 mmol/L (98-107); Estimated GFR 66; Glucose 78 mg/dL (80-115); Magnesium 1.7 mg/dL (1.6-2.6); Potassium 4.2 mmol/L (3.5-5.1); Sodium 134 mmol/L (136-145)
[2024-03-21] MEDS: Loperamide HCl 2 MG CAP PO PRN (14:00)
[2024-03-22] MEDS: Gabapentin 100 MG CAP PO SCH (15:01)
[2024-03-23] MEDS: Ondansetron ODT 4 MG TAB PO PRN (06:31)
[2024-03-24 09:40] LABS: #Basophils 0.05 10x3/uL (0.0-0.2); %Lymphocytes 34.1 % (21.0-51.0); %Monocytes 9.9 % (0.0-10.0); %Neutrophils 51.8 % (42.0-75.0); Hematocrit 35.7 % (36.0-47.0); Hemoglobin 11.1 g/dL (12.0-16.0); Mean Corpuscular HGB CONC 31.1 g/dL (32.0-36.0); Mean Corpuscular Hemoglobin 26.8 pg (27.0-31.0); Mean Corpuscular Volume 86.2 fL (78.0-98.0); Mean Platelet Volume 10.7 fL (7.4-10.4); Platelet Count 161 10x3/uL (130-400); RBC Distribution Width 16.8 % (11.5-14.5); Red Blood Cell (RBC) Count 4.14 mill/uL (4.20-5.40)
[2024-03-24 10:20] LABS: Anion Gap 12 mmol/L (10-20); BUN (Urea Nitrogen) 15 mg/dL (9.8-20.1); Calc. Creatinine Clearance 57 mL/min (70-130); Calcium 8.5 mg/dL (7.8-10.44); Carbon Dioxide 19 mmol/L (23-31); Chloride 104 mmol/L (98-107); Estimated GFR 67; Glucose 72 mg/dL (80-115); Potassium 4.2 mmol/L (3.5-5.1); Sodium 131 mmol/L (136-145)
[2024-03-25] MEDS: Ketorolac Tromethamine 30 MG (1 mL) VIAL IVP PRN (13:38)
[2024-03-26] MEDS ORDERED: Sodium Bicarbonate 2.5 MEQ/5 ML SDV ONE (14:47)
[2024-03-26 17:09] LABS: Synovial Fluid, Protein 4.4 g/dL (Not Available)
[2024-03-26 17:15] LABS: BF Color Red; Body Fluid Source Abscess Fluid; Clarity Cloudy/Turbid (Clear); Tube # EDTA
[2024-03-28] MEDS ORDERED: traMADol HCl 50 MG TAB PO PRN (11:00)
[2024-03-29 07:00] LABS: #Basophils 0.07 10x3/uL (0.0-0.2); %Basophils 0.9 % (0.0-1.0); %Eosinophils 2.8 % (0.0-10.0); %Lymphocytes 33.5 % (21.0-51.0); %Monocytes 7.5 % (0.0-10.0); %Neutrophils 54.8 % (42.0-75.0); Hematocrit 37.8 % (36.0-47.0); Hemoglobin 11.7 g/dL (12.0-16.0); Mean Corpuscular Hemoglobin 25.9 pg (27.0-31.0); Mean Corpuscular Volume 83.6 fL (78.0-98.0); Platelet Count 197 10x3/uL (130-400); RBC Distribution Width 16.4 % (11.5-14.5); Red Blood Cell (RBC) Count 4.52 mill/uL (4.20-5.40)
[2024-03-29 07:13] LABS: Prothrombin Time 13.5 sec (12.0-14.7)
[2024-03-29 07:14] LABS: PTT 35.7 sec (22.9-36.1)
[2024-03-29 07:47] LABS: ALT (SGPT) 10 U/L (8-55); AST (SGOT) 19 U/L (5-34); Albumin 2.2 g/dL (3.4-4.8); Alkaline Phosphatase 120 U/L (40-110); Anion Gap 9 mmol/L (10-20); BUN (Urea Nitrogen) 14 mg/dL (9.8-20.1); Bilirubin, Total 0.5 mg/dL (0.2-1.2); Calc. Creatinine Clearance 66 mL/min (70-130); Calcium 8.3 mg/dL (7.8-10.44); Carbon Dioxide 22 mmol/L (23-31); Chloride 106 mmol/L (98-107); Estimated GFR 80; Globulin 3.4 g/dL (2.4-3.5); Glucose 87 mg/dL (80-115); Magnesium 1.9 mg/dL (1.6-2.6); Potassium 3.7 mmol/L (3.5-5.1); Protein, Total 5.6 g/dL (5.8-8.1); Sodium 133 mmol/L (136-145)
[2024-03-29] MEDS ORDERED: Ranolazine ER 500 MG TAB PO SCH (09:00)
[2024-03-29] MEDS: Magnesium Oxide 400 MG TAB PO SCH (09:13)
[2024-03-29] MEDS: Polyethylene Glycol 3350 17 GM Packet PO SCH (12:28)
[2024-03-30] MEDS: Polyethylene Glycol 3350 17 GM Packet PO SCH (08:09)
[2024-03-30 11:47] VITALS: TEMP 97.6
[2024-03-30 13:32] VITALS: BP 92/56
== END 2024-03-30 19:25 | DRG 552 ==
LOC: T4-B 17:44 → OBSVTOIN 03-21 17:06
PROVIDERS: ADMIT Internal Medicine; ATTEND Family Medicine
PROC: 0J9L3ZX Drainage of Right Upper Leg Subcutaneous Tissue and Fascia, Percutaneous Approach, Diagnostic (ICD-10-PCS; principal; 2024-03-26)
DX: S32.019A Unspecified fracture of first lumbar vertebra, initial encounter for closed fracture (principal); S32.10XA Unspecified fracture of sacrum, initial encounter for closed fracture; S32.501A Unspecified fracture of right pubis, initial encounter for closed fracture; I50.42 Chronic combined systolic (congestive) and diastolic (congestive) heart failure; M48.54XA Collapsed vertebra, not elsewhere classified, thoracic region, initial encounter for fracture; Z96.641 Presence of right artificial hip joint; E11.9 Type 2 diabetes mellitus without complications; D69.2 Other nonthrombocytopenic purpura; I11.0 Hypertensive heart disease with heart failure; M06.9 Rheumatoid arthritis, unspecified; D50.9 Iron deficiency anemia, unspecified; E78.5 Hyperlipidemia, unspecified; I25.10 Atherosclerotic heart disease of native coronary artery without angina pectoris; Z88.5 Allergy status to narcotic agent; Z79.899 Other long term (current) drug therapy; Z79.84 Long term (current) use of oral hypoglycemic drugs; Z95.0 Presence of cardiac pacemaker; W19.XXXA Unspecified fall, initial encounter; Y93.89 Activity, other specified; Y92.89 Other specified places as the place of occurrence of the external cause
CPT/HCPCS: 36415; 36416; 72146; 72148; 72195; 76942; 80048; 80053; 82945; 83735; 84157; 85025; 85060; 85610; 85730; 86850; 86900; 86901; 87070; 87205; 89051; 93005; 93010; 93923; 96372; 96374; 97139; G0378; J1650; J1885; J2405; Q0162

== ENCOUNTER 2024-06-15 12:01 | Inpatient (IN) | payer OTHER, MEDICAID ==
[2024-06-15 12:40] LABS: #Basophils 0.05 10x3/uL (0.0-0.2); %Basophils 0.7 % (0.0-1.0); %Eosinophils 2.7 % (0.0-10.0); %Lymphocytes 27.7 % (21.0-51.0); %Monocytes 7.8 % (0.0-10.0); %Neutrophils 60.7 % (42.0-75.0); Hematocrit 34.1 % (36.0-47.0); Hemoglobin 10.1 g/dL (12.0-16.0); Mean Corpuscular HGB CONC 29.6 g/dL (32.0-36.0); Mean Corpuscular Hemoglobin 24.4 pg (27.0-31.0); Mean Corpuscular Volume 82.4 fL (78.0-98.0); Platelet Count 179 10x3/uL (130-400); Red Blood Cell (RBC) Count 4.14 mill/uL (4.20-5.40)
[2024-06-15 12:56] LABS: INR-International Normal Ratio 1.1; PTT 30.8 sec (22.9-36.1)
[2024-06-15 13:04] LABS: ALT (SGPT) 18 U/L (8-55); AST (SGOT) 27 U/L (5-34); Albumin 2.3 g/dL (3.4-4.8); Alkaline Phosphatase 87 U/L (40-110); Anion Gap 14 mmol/L (10-20); BUN (Urea Nitrogen) 26 mg/dL (9.8-20.1); Bilirubin, Total 0.3 mg/dL (0.2-1.2); CK (CPK) 118 U/L (29-168); Calc. Creatinine Clearance 0 mL/min (70-130); Calcium 8.4 mg/dL (7.8-10.44); Carbon Dioxide 20 mmol/L (23-31); Chloride 107 mmol/L (98-107); Estimated GFR 52; Globulin 3.6 g/dL (2.4-3.5); Glucose 155 mg/dL (83-110); Potassium 5.1 mmol/L (3.5-5.1); Protein, Total 5.9 g/dL (5.8-8.1); Sodium 136 mmol/L (136-145)
[2024-06-15 13:09] LABS: Troponin I 0.016 ng/mL (< 0.028)
[2024-06-15 13:22] LABS: Actual Bicarbonate (HCO3v) 19.1 mEq/L (22-28); Analyzer IN Cardio ER; Base Excess -6.6 mEq/L (-2.0 to +3.0); Calcium, Ionized (venous) 0.92 mmol/L (1.16-1.32); Chloride (VBG) 109 mmol/L (98-106); Hematocrit-VBG 31 % (36.0-47.0); Hemoglobin (Hb) 10.7 g/dL (11.7-16.1); Potassium (VBG) 4.75 mmol/L (3.70-5.30); Sodium 135 mmol/L (133-146); pH (venous) 7.309 (7.32-7.43)
[2024-06-15] MEDS ORDERED: NOREPINEPHRINE 8 MG/250 ML-D5W 250 ML ONE (13:52)
[2024-06-15] MEDS ORDERED: Albumin 25% 100 ML ONE (14:33)
[2024-06-15 14:51] LABS: Bacteria/HPF None Seen HPF (None Seen); Bilirubin Negative (Negative); Blood, Urine Negative (Negative); CAUTI Indications for Culture Alt mental st,lethar; Clarity Clear (Clear); Glucose, Urine (Dipstick) Greater than 1000 mg/dL (Negative); Ketone, Urine Negative (Negative); Leukocyte Negative Leu/uL (Negative); Nitrite Negative (Negative); Protein, Urine (Dipstick) 30 mg/dL (Neg-Trace); RBC/HPF 0-3 HPF (0-3); Specific Gravity, Urine 1.037 (1.002-1.036); Squamous Epithelial 0-3 HPF (0-3); Urobilinogen Normal mg/dL (Less than 2); WBC/HPF 0-3 HPF (0-3); Yeast-Budding 1+ HPF (None Seen); pH, Urine 5.5 (5.0-9.0)
[2024-06-15 14:52] LABS: Urine Culture Reflex No No
[2024-06-15] MEDS ORDERED: NOREPINEPHRINE 8 MG/250 ML-D5W 250 ML IVPB PRN (15:16)
[2024-06-15 15:57] VITALS: BMI 25.1
[2024-06-15 15:57] LABS: Acetaminophen Less than 10 mcg/mL (Less than 10); Alcohol Less than 10.0 mg/dL (Less than 10); Salicylate Less than 8.0 mg/dL (Less than 8.0)
[2024-06-15 16:01] LABS: Troponin I 0.018 ng/mL (< 0.028)
[2024-06-15 16:15] LABS: Amphetamine Not Detected (NotDetected); Barbiturates Screen Not Detected (NotDetected); Benzodiazepine Screen Not Detected (NotDetected); Cocaine Metabolite Screen Not Detected (NotDetected); Methadone Not Detected (NotDetected); Methamphetamine Not Detected (NotDetected); Opiate Screen Not Detected (NotDetected); Oxycodone Screen Not Detected (NotDetected); Phencyclidine (PCP) Not Detected (NotDetected); THC/Cannabinoid Screen Not Detected (NotDetected); Tricyclic Screen Detected (NotDetected)
[2024-06-15 19:21] LABS: Troponin I 0.041 ng/mL (< 0.028)
[2024-06-15] MEDS ORDERED: Ipratropium/Albuterol 3 ML NEB NEB PRN (20:42)
[2024-06-15] MEDS ORDERED: Electrolyte Replacement Protocol 1 EACH FS SCH (20:50)
[2024-06-15] MEDS: Cyclobenzaprine 10 MG TAB PO SCH (21:47)
[2024-06-15] MEDS: Magnesium 2 GM/50 ML(in water) 2 GM in Premix 1 BAG IVPB SCH (23:35)
[2024-06-16] MEDS: Acetaminophen 325 MG TAB PO PRN (04:14)
[2024-06-16 05:36] LABS: ALT (SGPT) 12 U/L (8-55); AST (SGOT) 17 U/L (5-34); Albumin 2.4 g/dL (3.4-4.8); Alkaline Phosphatase 80 U/L (40-110); Anion Gap 13 mmol/L (10-20); BUN (Urea Nitrogen) 24 mg/dL (9.8-20.1); Bilirubin, Total 0.3 mg/dL (0.2-1.2); Calc. Creatinine Clearance 38 mL/min (70-130); Calcium 8.5 mg/dL (7.8-10.44); Carbon Dioxide 22 mmol/L (23-31); Chloride 110 mmol/L (98-107); Estimated GFR 39; Glucose 97 mg/dL (83-110); Magnesium 2.3 mg/dL (1.6-2.6); Potassium 5.1 mmol/L (3.5-5.1); Protein, Total 5.4 g/dL (5.8-8.1); Sodium 140 mmol/L (136-145)
[2024-06-16] MEDS: Enoxaparin 40 MG (0.4 mL) SYRINGE SC SCH (09:06)
[2024-06-16] MEDS: Lactated Ringer's 1,000 ML IV SCH (12:30)
[2024-06-16] MEDS: cefTRIAXone\\ROCEPHIN 1 GM in Sodium Chloride 0.9% 100 ML IVPB SCH (15:28)
[2024-06-16] MEDS: Nitroglycerin 0.4 MG TAB (25 Tab Bottle) SL PRN (15:32)
[2024-06-16] MEDS: Nitroglycerin 0.4 MG TAB (25 Tab Bottle) ONE (15:34)
[2024-06-16 17:05] LABS: Troponin I 0.017 ng/mL (< 0.028)
[2024-06-16] MEDS ORDERED: Rosuvastatin 20 MG TAB PO SCH (21:00)
[2024-06-16] MEDS: Cyclobenzaprine 10 MG TAB PO SCH (21:14)
[2024-06-16] MEDS: Ranolazine ER 500 MG TAB PO SCH (21:15)
[2024-06-16] MEDS: Rosuvastatin 20 MG TAB PO SCH (21:16)
[2024-06-17 05:03] LABS: ALT (SGPT) 10 U/L (8-55); AST (SGOT) 13 U/L (5-34); Albumin 2.3 g/dL (3.4-4.8); Alkaline Phosphatase 78 U/L (40-110); Anion Gap 9 mmol/L (10-20); BUN (Urea Nitrogen) 16 mg/dL (9.8-20.1); Bilirubin, Total 0.4 mg/dL (0.2-1.2); Calc. Creatinine Clearance 55 mL/min (70-130); Calcium 8.4 mg/dL (7.8-10.44); Carbon Dioxide 23 mmol/L (23-31); Chloride 114 mmol/L (98-107); Estimated GFR 62; Globulin 2.9 g/dL (2.4-3.5); Glucose 69 mg/dL (83-110); Potassium 4.9 mmol/L (3.5-5.1); Protein, Total 5.2 g/dL (5.8-8.1); Sodium 141 mmol/L (136-145)
[2024-06-17] MEDS: Aspirin 81 mg Enteric Coated Tablet PO SCH (09:11)
[2024-06-17] MEDS: Empagliflozin 10 MG TAB PO SCH (09:12)
[2024-06-17] MEDS: Bisoprolol Fumarate 5 MG TAB PO SCH (09:13)
[2024-06-17] MEDS: Cyclobenzaprine 10 MG TAB PO PRN (22:03)
[2024-06-18 06:08] LABS: #Basophils 0.05 10x3/uL (0.0-0.2); %Basophils 0.9 % (0.0-1.0); %Eosinophils 2.8 % (0.0-10.0); %Lymphocytes 44.4 % (21.0-51.0); %Monocytes 8.3 % (0.0-10.0); %Neutrophils 43.4 % (42.0-75.0); Hematocrit 32.2 % (36.0-47.0); Hemoglobin 9.7 g/dL (12.0-16.0); Mean Corpuscular HGB CONC 30.1 g/dL (32.0-36.0); Mean Corpuscular Volume 79.7 fL (78.0-98.0); Mean Platelet Volume 10.2 fL (7.4-10.4); Platelet Count 193 10x3/uL (130-400); RBC Distribution Width 18.3 % (11.5-14.5); Red Blood Cell (RBC) Count 4.04 mill/uL (4.20-5.40)
[2024-06-18 06:41] LABS: Anion Gap 9 mmol/L (10-20); BUN (Urea Nitrogen) 15 mg/dL (9.8-20.1); Calc. Creatinine Clearance 52 mL/min (70-130); Calcium 8.2 mg/dL (7.8-10.44); Carbon Dioxide 22 mmol/L (23-31); Chloride 112 mmol/L (98-107); Estimated GFR 63; Glucose 85 mg/dL (83-110); Potassium 4.2 mmol/L (3.5-5.1); Sodium 139 mmol/L (136-145)
[2024-06-18] MEDS ORDERED: Ipratropium/Albuterol 3 ML NEB NEB PRN (18:42)
[2024-06-18] MEDS: Hydroxychloroquine Sulfate 200 MG TAB PO SCH (20:49)
[2024-06-18] MEDS: Loperamide HCl 2 MG CAP PO PRN (20:49)
[2024-06-18] MEDS: DULoxetine 20 MG CAP PO SCH (22:18)
[2024-06-19] MEDS ORDERED: LevoFLOXacin 250 MG TAB PO SCH (06:00)
[2024-06-19] MEDS: Ezetimibe 10 MG TAB PO SCH (07:52)
[2024-06-19] MEDS: Prasugrel 10 MG TAB PO SCH (07:52)
[2024-06-19] MEDS ORDERED: Empagliflozin 10 MG TAB PO SCH (09:00)
[2024-06-19] MEDS: Leflunomide 10 mg Tablet PO SCH (10:02)
[2024-06-19 15:38] VITALS: BP 123/71; TEMP 97.4
[2024-06-19] MEDS ORDERED: Rosuvastatin 10 MG TAB PO SCH (21:00)
== END 2024-06-19 17:20 | disposition swing bed (61) | DRG 871 ==
LOC: ERS 12:01 → ERHOLD 14:39 → CCU 15:51 → 2NO 06-17 17:37
PROVIDERS: ADMIT Internal Medicine; ATTEND Internal Medicine
DX: R57.1 Hypovolemic shock (principal); G93.41 Metabolic encephalopathy; E87.20 Acidosis, unspecified; N17.9 Acute kidney failure, unspecified; N39.0 Urinary tract infection, site not specified; I50.22 Chronic systolic (congestive) heart failure; I25.10 Atherosclerotic heart disease of native coronary artery without angina pectoris; I25.5 Ischemic cardiomyopathy; I10 Essential (primary) hypertension; I73.9 Peripheral vascular disease, unspecified; M06.9 Rheumatoid arthritis, unspecified; Z88.5 Allergy status to narcotic agent; Z88.8 Allergy status to other drugs, medicaments and biological substances; Z87.891 Personal history of nicotine dependence; Z90.49 Acquired absence of other specified parts of digestive tract; Z95.1 Presence of aortocoronary bypass graft; Z90.710 Acquired absence of both cervix and uterus; I11.0 Hypertensive heart disease with heart failure; R77.8 Other specified abnormalities of plasma proteins; D64.9 Anemia, unspecified; J44.9 Chronic obstructive pulmonary disease, unspecified
CPT/HCPCS: 36415; 36416; 36556; 51702; 70450; 71045; 71260; 72125; 72170; 74177; 80048; 80053; 80306; 80307; 81001; 82140; 82533; 82550; 82805; 83605; 83735; 83880; 84443; 84484; 85025; 85610; 85730; 86850; 86900; 86901; 87040; 87077; 87086; 87186; 87428; 93005; 93306; 96361; 96365; J0696; J1650; J3475; J7120; P9047